=== PATIENT | male | born 1935 | race Caucasian/White ===

== ENCOUNTER 2019-11-29 14:19 | Inpatient (IN) | payer MEDICARE, SELFPAY ==
--- NOTE | ~2019-11-29 | CT_ITS ---
EXAMINATION: CT chest abdomen pelvis wo con DATE: 11/30/2019 17:01 INDICATION: 30 pound weight loss in one month with epigastric pain and prior Whipple procedure. TECHNIQUE: Computed tomography (CT) of the chest, abdomen, and pelvis was performed without intraveno us contrast. Automated exposure control and iterative reconstruction technique were employed. The dos e-length product was 355.20 mGy-cm. COMPARISON: 05/09/2019 FINDINGS: CHEST CT: Mild apical predominant emphysema. Minimal atelectasis in the dependent bilateral lower lobes. Small calcified right upper lobe nodule along with calcified right hilar and mediastinal lymph nodes consis tent with old granulomatous disease. Bubbly mucus in the trachea. No pneumonia. Heart size is normal. No pericardial or pleural effusion. Atherosclerotic coronary artery calcifications. Aortic valve eugenio cification. No pathologically enlarged thoracic lymphadenopathy. ABDOMEN/PELVIS CT: Postoperative change of prior Whipple procedure with expected scattered pneumobilia in the liver. A f ew splenic calcified consistent with old granulomatous disease. Numerous dystrophic calcification is in the tail of pancreas consistent with sequela of chronic pancreatitis. Bilateral adrenal glands are normal. Bilateral renal cysts the largest measuring 2.7 cm in the right kidney. Bilateral nonobstruc ting nephrolithiasis with the largest stone measuring 7-8 mm at the lower pole of the right kidney. B ladder is normal. Appendix is normal. There are few scattered colonic diverticula without adjacent in flammatory change to suggest diverticulitis. Circumferential wall thickening immediately within 3 cm of the gastrojejunal anastomosis and could not exclude malignancy or fixed stricture. Suggestion of a dditional wall thickening in the more distal Nik limb with stranding and mild lymphadenopathy in the associated small bowel mesentery of the left upper quadrant. No free intraperitoneal gas or fluid. N o pathologically enlarged abdominal or pelvic lymphadenopathy. Mild thoracolumbar dextrocurvature. Mi ld scattered degenerative skeletal changes. IMPRESSION: 1. Postoperative change of prior Whipple procedure with irregular wall thickening and surrounding inf lammatory change in the Nik limb immediately distal to the gastrojejunal anastomosis. This could be infectious, inflammatory, ischemic or malignant in etiology. The most concerning lesion is immediatel y distal to the anastomosis and would likely be amenable to endoscopic evaluation. Reviewed, dictated and finalized at location A. NTION MANAGER IMPRESSION: 1. Postoperative change of prior Whipple procedure with irregular wall thickeni ng and surrounding inflammatory change in the Nik limb immediately distal to t he gastrojejunal anastomosis. This could be infectious, inflammatory, ischemic or malignant in etiology. The most concerning lesion is immediately distal to t he anastomosis and would likely be amenable to endoscopic evaluation.
--- NOTE | ~2019-11-29 | XR_ITS ---
EXAMINATION: XR chest 2V DATE: 11/29/2019 17:57 INDICATION: Fatigue and weakness TECHNIQUE: frontal and lateral views of the chest were obtained. COMPARISON: None FINDINGS: The lungs are clear with no focal airspace opacities, pulmonary edema, pleural effusion or pneumothor ax. The cardiomediastinal silhouette is normal. Couple surgical clips project over the mid upper abdo men. IMPRESSION: 1. No acute cardiopulmonary disease. Reviewed, dictated and finalized at location A. SHING RANGE OPERATOR
[2019-11-29 14:45] VITALS: BP 110/61; PULSE 80; RESP 16; TEMP 36.7; O2SAT 100
[2019-11-29 17:12] VITALS: BP 118/77; PULSE 74; RESP 20; O2SAT 99
[2019-11-29 17:13] VITALS: PULSE 75
--- NOTE | 2019-11-29 17:39 | ED.WEAKNESS ---
HPI - Weakness General Chief complaint: Weakness Time Seen by Provider: 11/29/19 17:12 Source: patient, family and RN notes reviewed Mode of arrival: ambulatory Limitations: no limitations History of Present Illness HPI Narrative: A 83 y/o male presents to the ED with worsening generalized weakness for the past 2 weeks. He states that he has been having generalized weakness, fatigue, mild ABD pain, and mild back pain for the past 2 weeks. Per family reports that the pt put himself on a a diet about 4 weeks ago because he thought he was weighing too much and has dropped roughly 20lbs since. The son notes that when he got to the pt's house today that he could barely even get out of his chair, which is very abnormal because the pt normally ambulates on his own. The pt also notes that he has had a cough and runny nose for a month, which he has been taking Dayquil and Nyquil but denies it alleviating his symptoms. The family reports that the pt had a Whipple procedure done in [place] a couple years ago and had part of his pancreas, part of his stomach, part of his small bowel, and his bile duct removed. He denies any N/V/D, fevers, chills, CP, SOB, and any other medical complaints at this time. MD Complaint: generalized weakness Onset (ago): week(s) (2) Duration: progressively worsening Location: generalized Associated symptoms: other (fatigue, mild ABD pain, mild back pain, lost 20lbs in 4 weeks, cough, runny nose) Related Data Home Medications Medication Instructions Recorded Confirmed amlodipine 10 mg PO HS 11/29/19 11/29/19 benazepril 40 mg PO QAM 11/29/19 11/29/19 coQ10 (ubiquinol) 100 mg PO DAILY 11/29/19 11/29/19 fenofibrate 160 mg PO QAM 11/29/19 11/29/19 omega 4-jgp-edd-fish oil [Fish Oil] 1 cap PO QAM 11/29/19 11/29/19 quetiapine 25 mg PO 11/29/19 11/29/19 vitamin B complex 1 tablet PO DAILY 11/29/19 11/29/19 Allergies Allergy/AdvReac Type Severity Reaction Status Date / Time naproxen Allergy Unknown Rash Verified 11/29/19 17:14 Review of Systems Review of Systems: All systems reviewed & are unremarkable except as noted in HPI and below Constitutional: Constitutional: Denies chills, Reports fatigue, Denies fever(s), Denies headache(s), Reports weakness (generalized) and Reports weight loss (20lbs in 4 weeks) Eyes: Eyes: Denies blurry vision ENT: Denies headache(s), Reports nasal discharge and Denies neck pain Cardiovascular: Cardiovascular: Denies chest pain and Denies dyspnea Respiratory: Respiratory: Reports cough and Denies dyspnea Gastrointestinal: Gastrointestinal: Reports abdominal pain (mild), Denies diarrhea, Denies nausea and Denies vomiting Genitourinary: Genitourinary: Denies hematuria and Denies dysuria Musculoskeletal: Musculoskeletal: Reports back pain (mild) and Denies neck pain Neurologic: Denies headache(s) and Denies weakness [facility] Past Medical History Medical History IPMN (intraductal papillary mucinous neoplasm) UTI due to Klebsiella species Surgical History Surgical History History of cholecystectomy History of pancreatectomy History of resection of stomach S/P small bowel resection Family History Family History Mother Patient's mother is Family history of cardiovascular disease Family history of malignant neoplasm Sibling Patient's sister is Patient's brother is Family history of multiple sclerosis Family history of Alzheimer's disease Family history of pancreatic cancer Family history of lung cancer Social History Social History Social History: Patient currently smokes 6-8 cigarettes a day. 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 He would like to be a fu
[2019-11-29 18:09] LABS: Basophils Percent Auto 0.4 % (0.2-1.2); Eosinophils Absolute Auto 0.3 K/mm3 (0-0.3); Eosinophils Percent Auto 3.9 % (0-4.4); Hematocrit 33.1 % (42.0-52.0); Hemoglobin 10.3 g/dL (14.0-18.0); Immature Granulocyte Absolute 0.03 K/mm3 (0.00-0.031); Immature Granulocyte Percent A 0.4 % (0-0.5); Lymphocytes Absolute Auto 1.31 K/mm3 (0.9-3.2); Lymphocytes Percent Auto 15.8 % (18.3-44.2); Mean Corpuscular HGB Conc 31.1 g/dl (32-36); Mean Corpuscular Hemoglobin 29.8 pg (26-34); Mean Corpuscular Volume 95.7 fl (80-100); Monocytes Absolute Auto 0.4 K/mm3 (0.1-0.6); Monocytes Percent Auto 4.2 % (2.6-8.5); Neutrophils Absolute Auto 6.3 K/mm3 (1.3-6.7); Neutrophils Percent Auto 75.3 % (45.5-73.1); Platelet Count Result 345 k/mm3 (150-375); Red Blood Count 3.46 M/mm3 (4.6-6.20); Red Cell Distribution Width 14.4 % (11.5-14.5); White Blood Count 8.3 K/mm3 (4.5-10.0)
[2019-11-29 18:21] LABS: Alanine Aminotransferase 17 U/L (4-50); Albumin Level 3.3 g/dL (3.5-5.1); Alkaline Phosphatase 85 U/L (38-126); Aspartate Amino Transferase 21 U/L (17-59); Bilirubin,Total 0.3 mg/dL (0.2-1.3); Blood Urea Nitrogen 31 mg/dL (9-20); Calcium 8.6 mg/dL (8.4-10.2); Carbon Dioxide 20 mmol/L (22-30); Chloride 114 mmol/L (98-107); Estimated CRCL calculation 18 ml/min; Estimated Glomerular Filt Rate 27; Glucose 111 mg/dL (75-110); Lipase 25 U/L (23-300); Potassium 4.2 mmol/L (3.4-5.0); Sodium 143 mmol/L (137-145)
[2019-11-29] MEDS: SODIUM CHLORIDE 0.9% IV 1,000 ML 999 ML IV CONT (18:37)
[2019-11-29 19:38] VITALS: BP 128/66; PULSE 68; RESP 18; O2SAT 98
[2019-11-29 21:36] VITALS: BP 125/65; PULSE 74; RESP 20; TEMP 36.1; O2SAT 100
--- NOTE | 2019-11-29 21:48 | ADMGEN ---
This patient, Isiah Tobar, was admitted to Medical Room 345-01. Patient/family oriented to hospital policies and general routines including ID bracelet, bed and alarms, visiting hours, pain management, procedures, bathroom and other care routines, personal items, smoking policy, room service/diet, and visiting hours. Valuables list has been completed. Information on how to activate the Rapid Response Team has been discussed. Patient/Family are encouraged to report perceived risks to care and to ask questions if they do not understand what they are told or what they should do.
[2019-11-29] MEDS: LACTATED RINGERS 1,000 ML 125 ML IV CONT (21:52)
[2019-11-29 21:57] VITALS: BMI 19.3
[2019-11-30 00:54] LABS: Add Urine Microscopic? YES; Appearance Urine Cloudy (Clear); Bacteria Urine Trace /hpf; Bilirubin Urine Negative (Negative); Color Urine Yellow (Yellow); Glucose Urine UA Negative (Negative); Ketones Urine Negative (Negative); Leukocyte Esterase Ur 3+ LEU/UL (Negative); Mucus Urine Rare /lpf; Nitrate Urine Negative (Negative); Protein Urine Negative (Negative); RBC Urine 21-50 /hpf (0-2); Specific Grav Ur 1.013 (1.001-1.035); Squamous Epithelial Cell Urine Many /hpf (Few); Urobilinogen Urine Negative mg/dL (<2.0); WBC Urine 31-50 /hpf
[2019-11-30 01:23] LABS: Blood Urine Negative (Negative)
[2019-11-30 05:29] VITALS: BP 138/73; PULSE 68; RESP 20; TEMP 36.4; O2SAT 100
[2019-11-30 06:57] LABS: Blood Urea Nitrogen 26 mg/dL (9-20); Calcium 7.9 mg/dL (8.4-10.2); Carbon Dioxide 17 mmol/L (22-30); Chloride 117 mmol/L (98-107); Estimated CRCL calculation 21 ml/min; Estimated Glomerular Filt Rate 34; Glucose 86 mg/dL (75-110); Potassium 3.6 mmol/L (3.4-5.0); Sodium 144 mmol/L (137-145)
[2019-11-30] MEDS: LACTATED RINGERS 1,000 ML 125 ML IV CONT ×2 (07:07→15:08)
[2019-11-30 08:02] VITALS: PULSE 68; RESP 20; O2SAT 100
[2019-11-30] MEDS: FENOFIBRATE 160 MG TABLET PO (09:38)
[2019-11-30] MEDS: ASPIRIN 81 MG ENTERIC TABLET PO (09:39)
[2019-11-30] MEDS: FERROUS SULFATE 324 MG TABLET PO (09:39)
[2019-11-30 14:00] VITALS: BP 131/69; PULSE 71; RESP 18; TEMP 36.6; O2SAT 100
--- NOTE | 2019-11-30 15:05 | PHAR ---
The patient's home med of [id number] [[id number] UNITS has been verified.
--- NOTE | 2019-11-30 16:04 | PM.IMHP ---
H&P: HPI History of Present Illness Chief complaint: alejandro, uti Narrative: Isiah Tobar is a 83 year old male who presented emergency room due to fatigue and 30 lb weight loss this month. is at bedside states that he she urged the patient to come into emergency room because he has been more fatigued, weak and has had significant weight loss in the last month. She said this started with a URI about a month ago where he had a significant cough and took a while to get over. He has been doing better with that but now has been pretty weak. She says that he started off at 150 lb and now is at 127. The patient states he has been trying to diet by not eating fried food and has lost a good amount of weight. He has had stomach pain on and off that he says is an epigastric cramping pain that is associated with nausea. He does have occasional diarrhea but has had that since his Whipple procedure in 2016. He had this Whipple due to cystic lesions on his pancreas but was never diagnosed with pancreatic cancer. Lately, the patient has had urinary leakage and pain when starting a stream but has not had any dysuria. He has had a catheter in the past after a major surgery but does not require a catheter usually. He does take his tamsulosin which does not seem to help. He has no known history of kidney disease. He does smoke every day about 6 or 8 cigarettes. He said he has some minor back pain that has been chronic and thinks it is due to his belt on his pants. The states he has been more unsteady on his feet but has not fallen. He denies chest pain, shortness of breath, dyspnea on exertion, jaundice, swelling to his legs, or other stroke-like symptoms. Review of Systems Review of Systems: All systems reviewed & are unremarkable except as noted in HPI and below PMFSH Past Medical History Medical History (Updated 11/30/19 @ 16:17 by Daphne Morocho PA-C) IPMN (intraductal papillary mucinous neoplasm) UTI due to Klebsiella species Surgical History Surgical History History of cholecystectomy History of pancreatectomy History of resection of stomach S/P small bowel resection Family History Family History Mother Patient's mother is Family history of cardiovascular disease Family history of malignant neoplasm Sibling Patient's sister is Patient's brother is Family history of multiple sclerosis Family history of Alzheimer's disease Family history of pancreatic cancer Family history of lung cancer Social History Social History (Updated 11/30/19 @ 16:12 by Daphne Morocho PA-C) Social History: Patient currently smokes 6-8 cigarettes a day. 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 Years smoked: 70 Smoking status: Current every day smoker Tobacco type: cigarettes Alcohol intake: former Substance use: never Gender identity (if verbalized by the patient): Male Spiritual care concerns: No Agree to blood products: Yes Meds Home Medications and Allergies Home Medications Medication Instructions Recorded Confirmed Type aspirin 81 mg tablet,delayed 81 mg PO DAILY #30 tablet 09/18/19 11/29/19 Rx release ferrous sulfate 325 mg (65 mg 325 mg PO DAILY #30 tablet 09/18/19 11/29/19 Rx iron) tablet mqybdb-vxemnipb-mliyknr 1 cap PO TID #270 cap 09/18/19 11/29/19 Rx 25,000-79,000-105,000 unit capsule,delayed rel tamsulosin 0.4 mg capsule 0.4 mg PO DAILY #30 cap 09/26/19 11/29/19 Rx amlodipine 10 mg PO HS 11/29/19 11/29/19 History benazepril 40 mg PO QAM 11/29/19 11/29/19 History coQ10 (ubiquinol) 100 mg PO DAILY 11/29/19 11/29/19 History fenofibrate 160 mg PO QAM 11/29/19 11/29/19 History omega 8-vtn-anb-fish oil [Fish Oil] 1 cap PO QAM 11/29/19 0
[2019-11-30] MEDS: AMLODIPINE BESYLATE 5 MG TABLET 10 MG PO (20:25)
[2019-11-30] MEDS: QUEtiapine FUMARATE 25 MG TABLET PO (20:25)
[2019-11-30 21:10] VITALS: BP 122/71; PULSE 66; RESP 16; TEMP 37.2; O2SAT 99
[2019-12-01 06:00] VITALS: BP 122/78; PULSE 72; RESP 16; TEMP 36.8; O2SAT 100
[2019-12-01 06:15] LABS: Basophils Percent Auto 0.7 % (0.2-1.2); Eosinophils Absolute Auto 0.4 K/mm3 (0-0.3); Eosinophils Percent Auto 5.9 % (0-4.4); Hematocrit 26.2 % (42.0-52.0); Hemoglobin 8.2 g/dL (14.0-18.0); Immature Granulocyte Absolute 0.03 K/mm3 (0.00-0.031); Immature Granulocyte Percent A 0.5 % (0-0.5); Lymphocytes Absolute Auto 1.59 K/mm3 (0.9-3.2); Lymphocytes Percent Auto 26.2 % (18.3-44.2); Mean Corpuscular HGB Conc 31.3 g/dl (32-36); Mean Corpuscular Hemoglobin 29.6 pg (26-34); Mean Corpuscular Volume 94.6 fl (80-100); Mean Platelet Volume 10.7 fl (7.4-10.4); Monocytes Absolute Auto 0.3 K/mm3 (0.1-0.6); Monocytes Percent Auto 5.3 % (2.6-8.5); Neutrophils Absolute Auto 3.7 K/mm3 (1.3-6.7); Neutrophils Percent Auto 61.4 % (45.5-73.1); Platelet Count Result 273 k/mm3 (150-375); Red Blood Count 2.77 M/mm3 (4.6-6.20); Red Cell Distribution Width 14.3 % (11.5-14.5); White Blood Count 6.1 K/mm3 (4.5-10.0)
[2019-12-01] MEDS: ASPIRIN 81 MG ENTERIC TABLET PO (08:26)
[2019-12-01] MEDS: FENOFIBRATE 160 MG TABLET PO (08:26)
[2019-12-01] MEDS: FERROUS SULFATE 324 MG TABLET PO (08:26)
[2019-12-01] MEDS: FINASTERIDE 5 MG TABLET PO (08:26)
[2019-12-01] MEDS: PANTOPRAZOLE SODIUM IV 40 MG VIAL IV PUSH (08:27)
[2019-12-01 08:55] LABS: Alanine Aminotransferase 12 U/L (4-50); Albumin Level 2.3 g/dL (3.5-5.1); Alkaline Phosphatase 65 U/L (38-126); Aspartate Amino Transferase 19 U/L (17-59); Bilirubin,Total 0.1 mg/dL (0.2-1.3); Blood Urea Nitrogen 20 mg/dL (9-20); Calcium 7.8 mg/dL (8.4-10.2); Carbon Dioxide 19 mmol/L (22-30); Chloride 114 mmol/L (98-107); Estimated CRCL calculation 22 ml/min; Estimated Glomerular Filt Rate 36; Glucose 79 mg/dL (75-110); Magnesium 1.7 mg/dL (1.6-2.3); Phosphorus 3.3 mg/dL (2.5-4.5); Sodium 145 mmol/L (137-145)
--- NOTE | 2019-12-01 09:38 | WPDGICN ---
Assessment and Plan Additional Plan This is an 83-year-old white male patient mass see because of abnormal CT scan. Patient has a history of dementia. He gives a history of being on a diet over the last 3-4 months and has lost more than 20 lb. He reports becoming progressively weak and fatigued. This prompted him to go to the emergency room yesterday for admission to the hospital. He was found to have a urinary tract infection. Urinary retention and acute kidney injury. Patient's chart reflects a history of Whipple's resection in the past. 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 This could have been an IPMN. Apparently no pancreatic cancer was identified at that time. He also has a history of cholecystectomy. Family history is significant for multiple sclerosis else hemorrhage dementia and pancreatic cancer in a sibling. Medications at home include iron, Creon, tamsulosin, amlodipine, benazepril, fenofibrate. Allergies are reported to Naprosyn. Social history is significant for a distant history of alcohol use Physical exam reveals him to be alert. He has a poor memory. HEENT exam reveals him to be anicteric. Lungs are clear to auscultation and percussion. Heart is without murmur or extra sounds. Abdominal exam bowel sounds are present soft mild tenderness in left upper quadrant is noted. No masses are identified. Digital rectal exam is normal. Laboratory work reveals WBC 6.1, hemoglobin 8.2, hematocrit 26.2. MCV 94. BUN of 20, creatinine 1.8. Albumin 2.3. LFTs are normal. CT scan of the abdomen reveals postoperative change a prior Whipple surgery. There is irregular wall thickening of the small bowel just distal to the gastro-jejunal anastomosis. Endoscopic evaluation is advised. Impression 1.. Abnormal CT scan. 2. Prior Whipple's resection. Apparently had cystic lesion on the pancreas. I am uncertain that whether this was pancreatic pseudocyst or an IPMN. Apparently it was benign disease. 3. Dementia. He gives a very poor history. 4. UTI. With acute kidney injury. Urinary retention is described. 5. Weight loss. Patient states he was on a diet. But lost [id number]. 6. Pancreatic insufficiency. Related to prior Whipple surgery. Agree with pancreatic enzyme replacement such as Creon. 7. Normochromic, normocytic anemia. Nonspecific. No obvious description of GI blood loss but may be related abnormality seen on CT scan. Plan is to evaluate abnormal CT scan with an EGD. Continued pancreatic enzyme replacement encouraged. Will follow with you. GI Consult Note Consult date/time: 12/01/19 09:38 HPI: Isiah Tobar is a 83 year old male [facility] Past Medical History Medical History (Updated 11/30/19 @ 16:17 by Daphne Morocho PA-C) IPMN (intraductal papillary mucinous neoplasm) UTI due to Klebsiella species Surgical History Surgical History History of cholecystectomy History of pancreatectomy History of resection of stomach S/P small bowel resection Family History Family History Mother Patient's mother is Family history of cardiovascular disease Family history of malignant neoplasm Sibling Patient's sister is Patient's brother is Family history of multiple sclerosis Family history of Alzheimer's disease Family history of pancreatic cancer Family history of lung cancer Social History Social History (Updated 11/30/19 @ 16:12 by Daphne Morocho PA-C) Social History: Patient currently smokes 6-8 cigarettes a day. 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 Years smoked: 70 Smoking status: Current every day smoker Tobacco type: cigarettes Alcohol intake: former Substance use: never Gender identity (if verbalized by the patient
[2019-12-01] MEDS: POTASSIUM CHLORIDE 20 MEQ TABLET 40 MEQ PO (10:10)
[2019-12-01 14:00] VITALS: BP 114/72; PULSE 64; RESP 18; TEMP 36.2; O2SAT 100
[2019-12-01 14:28] VITALS: PULSE 64; RESP 18; O2SAT 100
--- NOTE | 2019-12-01 15:07 | PC.NURSE ---
Charge nurse called RE: Pt was swinging at nurse [employer], asked for assistance in room to help redirect patient. Charge nurse entered room and introduced herself. Pt was sitting in a recliner, awake, responded with, what do you want? Pt reminded that aggressive or threatening behavior will not be tolerated. When asked, Do you know where you are? responded, Yes, I already answered all these questions to the last person just a little while ago. Asked again, Can you tell me where you are? Why do I need to answer all these questions again? [facility]ked [facility] to [facility] Pt was using a very loud tone and was aggitated that nurse was speaking with him. Pt was asked if had tried to swing his hands at the tech earlier, he denied having done so. Pt was notified that no aggressive behavior would be tolerated from anyone toward staff. Pt again denied any such behavior. Pt again notified that swinging at staff and threatening statements will not be tolerated. Pt stated that he did not do anything like that, so, yes, he understood.
--- NOTE | 2019-12-01 17:43 | PM.IMPN ---
Progress Note: A&P Assessment and Plan (1) COURTNEY (acute kidney injury): Code(s): N17.9 - Acute kidney failure, unspecified Status: Acute Assessment and Plan: -----Urine cx negative so abx stopped. Could be CKD with dehydration since pt had not been eating and drinking well and was more weak and dehydrated. CT did not show any abnormalities of the bladder. He received IV fluids since admission but had coarse crackles in his lung so this was stopped. Will reassess tomorrow. (2) UTI (urinary tract infection): Code(s): N39.0 - Urinary tract infection, site not specified Status: Acute Assessment and Plan: -----cx neg. abx stopped. (3) Urinary retention: Code(s): R33.9 - Retention of urine, unspecified Status: Acute Assessment and Plan: -----finasteride added (4) Benign essential HTN: Code(s): I10 - Essential (primary) hypertension Status: Acute Assessment and Plan: -----last blood pressure 114/72. Will continue home medications of amlodipine but will hold the benazepril due to COURTNEY. (5) Pancreatic insufficiency: Code(s): K86.89 - Other specified diseases of pancreas Status: Acute Assessment and Plan: -----continue Creon supplementation. (6) Dementia: Code(s): F03.90 - Unspecified dementia without behavioral disturbance Status: Acute Assessment and Plan: -----alert and oriented x4 but has a history of dementia. Continue Seroquel. (7) Systolic murmur: Code(s): R01.1 - Cardiac murmur, unspecified Status: Acute Assessment and Plan: -----patient family do not recall him ever being told he has a murmur. He has not had any passing out or lightheadedness. I recommend he follow-up with his primary care physician for routine monitoring of this. (8) Weight loss: Code(s): R63.4 - Abnormal weight loss Status: Acute Assessment and Plan: -----patient has been trying to lose weight but lost 30 lb in 1 month which seems excessive. CT shows abnormalities that could be infection, cancer, or ischemic. I have started a PPI and he is getting an EGD tomorrow. Additional Plan . Time Spent With Patient Time with patient: 25 - 35 minutes Subjective Date/time seen: 12/01/19 17:43 Interval history: Pt is a 83-year-old male here for weight loss and epigastric pain. Patient states he is doing better today. He has occasional epigastric pain but overall is feeling like he has improved. He denies nausea, vomiting, fevers, chills, chest pain, shortness of breath, or leg swelling. Review of Systems Review of Systems: All systems reviewed & are unremarkable except as noted in HPI and below Exam Narrative: Exam Narrative: General:Well developed well nourished patient resting comfortably in bed in no acute distress HEENT: Normocephalic, atraumatic, PERRL, Sclerae anicteric, oral mucosa moist. Neck: Supple Resp: More clear to auscultation today without crackles Heart: RRR a loud 3/6 systolic murmur best heard at the right 2nd intercostal space Abd: Soft, nontender. No pain to palpation. Positive bowel sounds Skin: Warm and dry Extremities: No swelling, erythema or pain to palpation Neuro: Alert and Oriented x4 . CN 2-12 intact. No focal neurological deficits. Objective Data Vital Signs Vital Signs: Vital Signs - 24 hr 11/30/19 21:10 12/01/19 06:00 12/01/19 14:00 Temperature 98.9 F 98.2 F 97.2 F L Pulse Rate 66 72 64 Respiratory Rate 16 16 18 Blood Pressure 122/71 122/78 114/72 Pulse Oximetry 99 100 100 12/01/19 14:28 Temperature Pulse Rate 64 Respiratory Rate 18 Blood Pressure Pulse Oximetry 100 Intake/Output Intake/Output: Intake & Output 11/28/19 11/29/19 11/30/19 12/01/19 23:59 23:59 23:59 23:59 Intake Total 50 3597 1130 Output Total 400 3 Balance 50 4747 1127 Meds/Results Medications: Active Medications Gener
[2019-12-01] MEDS: AMLODIPINE BESYLATE 5 MG TABLET 10 MG PO (20:45)
[2019-12-01] MEDS: QUEtiapine FUMARATE 25 MG TABLET PO (20:45)
[2019-12-01 22:00] VITALS: BP 139/80; PULSE 70; RESP 16; TEMP 36.2; O2SAT 100
[2019-12-02] VITALS (9 sets, daily range): BP systolic 94–144; BP diastolic 58–95; PULSE 58–81; RESP 14–18; TEMP 36.1–36.7; O2SAT 98–100; BMI 19.3
--- NOTE | 2019-12-02 07:41 | PC.NURSE ---
Sarai, in GI lab, confirm that IV protonix is okay to be administered. Other medications will have to wait until after the procedure.
[2019-12-02] MEDS: PANTOPRAZOLE SODIUM IV 40 MG VIAL IV PUSH (08:12)
[2019-12-02 08:18] LABS: Blood Urea Nitrogen 17 mg/dL (9-20); Calcium 7.9 mg/dL (8.4-10.2); Carbon Dioxide 20 mmol/L (22-30); Chloride 114 mmol/L (98-107); Estimated CRCL calculation 22 ml/min; Estimated Glomerular Filt Rate 36; Glucose 90 mg/dL (75-110); Potassium 3.4 mmol/L (3.4-5.0); Sodium 145 mmol/L (137-145)
[2019-12-02] MEDS: LACTATED RINGERS 1,000 ML 150 ML IV CONT (11:18)
--- NOTE | 2019-12-02 11:19 | WPDANESEPPF ---
Anes - Initial Pre Proc Eval Procedure: Operation Date: 12/02/19 11:30 Proposed Procedures p Esophagogastroduodenoscopy - Adalberto Abel MD Date/Time: 12/02/19 11:19 Surgeon: Daphne Morocho PA-C Pre Op Diagnosis: alejandro, uti Patient Data Age: 83 Gender: M Height: 5 ft 6 in Weight: 54.5 kg Last Vital Signs Temp 36.2 C L 12/02/19 06:00 Pulse 63 12/02/19 11:14 Resp 18 12/02/19 11:14 BP 129/69 12/02/19 11:14 Pulse Ox 100 12/02/19 11:14 Allergies Allergy/AdvReac Type Severity Reaction Status Date / Time naproxen Allergy Unknown Rash Verified 11/29/19 17:14 Home Medications Medication Instructions Recorded Confirmed Type aspirin 81 mg tablet,delayed 81 mg PO DAILY #30 tablet 09/18/19 11/29/19 Rx release ferrous sulfate 325 mg (65 mg 325 mg PO DAILY #30 tablet 09/18/19 11/29/19 Rx iron) tablet wofunb-pyaotaae-yixfevl 1 cap PO TID #270 cap 09/18/19 11/29/19 Rx 25,000-79,000-105,000 unit capsule,delayed rel tamsulosin 0.4 mg capsule 0.4 mg PO DAILY #30 cap 09/26/19 11/29/19 Rx amlodipine 10 mg PO HS 11/29/19 11/29/19 History benazepril 40 mg PO QAM 11/29/19 11/29/19 History coQ10 (ubiquinol) 100 mg PO DAILY 11/29/19 11/29/19 History fenofibrate 160 mg PO QAM 11/29/19 11/29/19 History omega 8-qeu-gea-fish oil [Fish Oil] 1 cap PO QAM 11/29/19 11/29/19 History quetiapine 25 mg PO HS 11/29/19 11/29/19 History vitamin B complex 1 tablet PO DAILY 11/29/19 11/29/19 History Laboratory Tests 12/02/19 07:42 Sodium 145 mmol/L mmol/L (137-145) Potassium 3.4 mmol/L mmol/L (3.4-5.0) Chloride 114 mmol/L H mmol/L (98-107) Carbon Dioxide 20 mmol/L L mmol/L (22-30) BUN 17 mg/dL mg/dL (9-20) Creatinine 1.80 mg/dL H mg/dL (0.7-1.3) Estim Creat Clear Calc 22 ml/min ml/min Estimated GFR 36 L (59 - ) Glucose 90 mg/dL mg/dL (75-110) Calcium 7.9 mg/dL L mg/dL (8.4-10.2) Patient hx anesthesia problems: none Family hx anesthesia problems: none [facility] Past Medical History Medical History IPMN (intraductal papillary mucinous neoplasm) UTI due to Klebsiella species Surgical History Surgical History History of cholecystectomy History of pancreatectomy History of resection of stomach S/P small bowel resection Family History Family History Mother Patient's mother is Family history of cardiovascular disease Family history of malignant neoplasm Sibling Patient's sister is Patient's brother is Family history of multiple sclerosis Family history of Alzheimer's disease Family history of pancreatic cancer Family history of lung cancer Social History Social History Social History: Patient currently smokes 6-8 cigarettes a day. 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 Years smoked: 70 Smoking status: Current every day smoker Tobacco type: cigarettes Alcohol intake: former Substance use: never Gender identity (if verbalized by the patient): Male Spiritual care concerns: No Agree to blood products: Yes Anes - Eval Final PreProcedure Day of Procedure 12/02/19 11:19 Patient weight: thin Heart: regular rate and rhythm Lungs: clear to auscultation Airway: Mallampati scale class II Neurological: alert and oriented Last oral intake: >/= 8 hours ASA classification: III Emergent: no Anesthetic plan: proceed Anesthesia type and monitoring: general and standard monitoring Informed Consent: The patient's anesthetic plan and its attendant risks and benefits were discussed with the patient/family/POA. Questions were solicited and answers provided to the satisfactio
[2019-12-02] MEDS: BENZOCAINE (*SP) 60 ML SPRAY CAN (HURRICAINE) 1 SPRAY MUCOUS MEM (12:09)
[2019-12-02] MEDS: SIMETHICONE ORAL SUSPENSION 20 MG/0.3 ML 30 ML BOTTLE 0.6 ML PO (12:14)
--- NOTE | 2019-12-02 13:36 | PC.NURSE ---
Pt not wanting to take medications until he eats.
--- NOTE | 2019-12-02 14:35 | PCNSR ---
On 12/02/19, the student, Fadia Ramos, provided care and completed [facility] documentation on this patient. I have reviewed the student's documentation and agree with the findings.
[2019-12-02] MEDS: FINASTERIDE 5 MG TABLET PO (15:30)
[2019-12-02] MEDS: FERROUS SULFATE 324 MG TABLET PO (15:30)
[2019-12-02] MEDS: FENOFIBRATE 160 MG TABLET PO (15:30)
--- NOTE | 2019-12-02 15:33 | PCOTNOTE ---
Made second attempt to see patient this date for OT, patient complained of pain in buttocks and asked to be repositioned. Patient assisted with repositioning but declined to participate in any functional/skilled ADL or transfer. Patient assisted with bed mobility to scoot up and RN made aware of patient's condition. Patient not seen for OT this date.
--- NOTE | 2019-12-02 15:45 | PM.IMPN ---
Progress Note: A&P Assessment and Plan (1) Jejunal ulcer: Code(s): K28.9 - Gastrojejunal ulcer, unspecified as acute or chronic, without hemorrhage or perforation Status: Acute Assessment and Plan: -----seen on EGD. Continue protonix BID and advance diet as tolerated. Spoke with Dr. Abel who recommends waiting for the bx to come back as it may be cancer. Will monitor pts symptoms. (2) COURTNEY (acute kidney injury): Code(s): N17.9 - Acute kidney failure, unspecified Status: Acute Assessment and Plan: -----Urine cx negative so abx stopped. Could be CKD with dehydration since pt had not been eating and drinking well and was more weak and dehydrated. CT did not show any abnormalities of the bladder. He received IV fluids since admission but had coarse crackles in his lung so this was stopped. Cr stable 1.8. back in 2019 he was 1.6 so he is about the same. Co2 is increasing. If not normal tomorrow may consider adding sodium bicarb because of the renal failure. (3) UTI (urinary tract infection): Code(s): N39.0 - Urinary tract infection, site not specified Status: Acute Assessment and Plan: -----cx neg. abx stopped. (4) Urinary retention: Code(s): R33.9 - Retention of urine, unspecified Status: Acute Assessment and Plan: -----finasteride added (5) Benign essential HTN: Code(s): I10 - Essential (primary) hypertension Status: Acute Assessment and Plan: -----last blood pressure 131/59. Will continue home medications of amlodipine but will hold the benazepril due to COURTNEY. (6) Pancreatic insufficiency: Code(s): K86.89 - Other specified diseases of pancreas Status: Acute Assessment and Plan: -----continue Creon supplementation. pt has a hx of IPMN. (7) Dementia: Code(s): F03.90 - Unspecified dementia without behavioral disturbance Status: Acute Assessment and Plan: -----alert and oriented x4 but has a history of dementia. Continue Seroquel. (8) Systolic murmur: Code(s): R01.1 - Cardiac murmur, unspecified Status: Acute Assessment and Plan: -----patient family do not recall him ever being told he has a murmur. He has not had any passing out or lightheadedness. I recommend he follow-up with his primary care physician for routine monitoring of this. (9) Weight loss: Code(s): R63.4 - Abnormal weight loss Status: Acute Assessment and Plan: -----patient has been trying to lose weight but lost 30 lb in 1 month which seems excessive. CT shows abnormalities that could be infection, cancer, or ischemic. awaiting bx Additional Plan . Subjective Date/time seen: 12/02/19 15:45 Interval history: Pt is a 83-year-old male here for weight loss and epigastric pain. Patient states his pain comes and goes. he has not eaten anything since last night because of his scope today. He denies nausea, vomiting, fevers, chills, chest pain, shortness of breath, or leg swelling. Exam Narrative: Exam Narrative: General:Well developed well nourished patient resting comfortably in bed in no acute distress HEENT: Normocephalic, atraumatic, PERRL, Sclerae anicteric, oral mucosa moist. Neck: Supple Resp: CTA Heart: RRR a loud 3/6 systolic murmur best heard at the right 2nd intercostal space Abd: Soft, nontender. No pain to palpation. Positive bowel sounds Skin: Warm and dry Extremities: No swelling, erythema or pain to palpation Neuro: Alert and Oriented x4 . CN 2-12 intact. No focal neurological deficits. Objective Data Vital Signs Vital Signs: Vital Signs - 24 hr 12/01/19 22:00 12/02/19 06:00 12/02/19 11:14 Temperature 97.2 F L 97.1 F L Pulse Rate 70 65 63 Respiratory Rate 16 16 18 Blood Pressure 139/80 128/60 129/69 Pulse Oximetry 100 100 100 12/02/19 12:25 12/02/19 12:35 12/02/19 12:45 Temperature Pulse Rate 70 66 60 Res
[2019-12-02] MEDS: POTASSIUM CHLORIDE 20 MEQ TABLET PO (17:09)
[2019-12-02] MEDS: AMLODIPINE BESYLATE 5 MG TABLET 10 MG PO (20:58)
[2019-12-02] MEDS: PANTOPRAZOLE 40 MG TABLET PO (20:58)
[2019-12-02] MEDS: QUEtiapine FUMARATE 25 MG TABLET PO (20:59)
[2019-12-03 06:00] VITALS: BP 114/48; PULSE 67; RESP 18; TEMP 36.2; O2SAT 99
[2019-12-03 06:09] LABS: Hematocrit 28.6 % (42.0-52.0)
[2019-12-03 06:18] LABS: Blood Urea Nitrogen 16 mg/dL (9-20); Calcium 8.1 mg/dL (8.4-10.2); Carbon Dioxide 21 mmol/L (22-30); Chloride 112 mmol/L (98-107); Estimated CRCL calculation 23 ml/min; Estimated Glomerular Filt Rate 39; Glucose 94 mg/dL (75-110); Potassium 3.4 mmol/L (3.4-5.0); Sodium 143 mmol/L (137-145)
--- NOTE | 2019-12-03 09:50 | WPDANESPN ---
Anes - Prog Note Post-Op Date/Time: 12/03/19 09:50 Cardiovascular status: normal Respiratory status: normal Airway patency: baseline Mental status: baseline Post-Op hydration status: normal Vital Signs: Last Vital Signs Temp 36.2 C L 12/03/19 06:00 Pulse 67 12/03/19 06:00 Resp 18 12/03/19 06:00 BP 114/48 L 12/03/19 06:00 Pulse Ox 99 12/03/19 06:00 I/O: Intake & Output 12/02/19 12/03/19 12/03/19 23:59 07:59 15:59 Intake Total 540 150 480 Balance 540 150 480 Laboratory Tests 12/03/19 05:30 12/03/19 05:30 12/03/19 12/03/19 05:30 05:30 Hgb 9.0 L Hct 28.6 L Sodium 143 Potassium 3.4 Chloride 112 H Carbon Dioxide 21 L BUN 16 Creatinine 1.70 H Estim Creat Clear Calc 23 Estimated GFR 39 L Glucose 94 Calcium 8.1 L Post-procedural complaints: none Patient Feedback: Patient satisfied with anesthetic care.
--- NOTE | 2019-12-03 11:02 | WPDGIPROGNO ---
Progress Note: A&P Additional Plan Patient alert. Comfortable at rest. Tolerating liquid diet without difficulty. On physical exam abdomen is benign. Bowel sounds are present. Nontender. No organomegaly evident. Impression 1. Multiple duodenal ulcers. Located a prior surgical anastomosis. Some concern over underlying tumor. 2. Status post Whipple's resection. Patient has a history of pancreatic IPMN. Patient remains at risk of recurrent cancer. Histology for duodenal ulcer biopsies pending. 3. Weight loss. Patient reports being on a diet. But concern over this being related ulcer disease and possible recurrent tumor. Plan is to advance diet. Continue proton pump inhibitor. Continues Carafate. Await histology. Further workup pending results of histology. Subjective Date/time seen: 12/03/19 11:02 Objective Data Vital Signs Vital Signs: Vital Signs - 24 hr 12/02/19 11:14 12/02/19 12:25 12/02/19 12:35 Temperature Pulse Rate 63 70 66 Respiratory Rate 18 16 16 Blood Pressure 129/69 94/58 L 112/69 Pulse Oximetry 100 100 98 12/02/19 12:45 12/02/19 12:55 12/02/19 13:35 Temperature 36.1 C L Pulse Rate 60 81 58 L Respiratory Rate 15 16 14 Blood Pressure 132/77 118/95 H 144/64 H Pulse Oximetry 100 100 100 12/02/19 14:00 12/02/19 20:55 12/03/19 06:00 Temperature 36.7 C 36.7 C 36.2 C L Pulse Rate 58 L 62 67 Respiratory Rate 18 18 18 Blood Pressure 131/59 L 122/62 114/48 L Pulse Oximetry 98 99 99 Intake/Output Intake/Output: Intake & Output 11/30/19 12/01/19 12/02/19 12/03/19 23:59 23:59 23:59 23:59 Intake Total 3597 1370 1020 630 Output Total 400 3 125 Balance 3197 1367 895 630 Meds/Results Medications: Active Medications Generic Name Dose Route Start Last Admin Trade Name Freq PRN Reason Stop Dose Admin Amlodipine Besylate 10 mg 11/30/19 21:00 12/02/19 20:58 Norvasc PO 10 mg HS ESTHELA Administration Fenofibrate 160 mg 11/30/19 09:00 12/02/19 15:30 Fenofibrate PO 160 mg QAM ESTHELA Administration Ferrous Sulfate 324 mg 11/30/19 08:00 12/02/19 15:30 Ferrous Sulfate PO 324 mg DAILY@0800 ESTHELA Administration Finasteride 5 mg 12/01/19 09:00 12/02/19 15:30 Proscar PO 5 mg QAM ESTHELA Administration Lorazepam 0.5 mg 12/02/19 15:50 Ativan Inj IV PUSH Q6H PRN Anxiety Nicotine 1 patch 12/01/19 17:44 Nicoderm Cq 14 Mg TRANSDERM QAM PRN smoking cravings Pantoprazole Sodium 40 mg 12/02/19 21:00 12/02/19 20:58 Protonix PO 40 mg Q12HR ESTHELA Administration Quetiapine Fumarate 25 mg 11/30/19 21:00 12/02/19 20:59 Seroquel PO 25 mg HS ESTHELA Administration Simethicone 0.6 ml 12/02/19 12:14 12/02/19 12:14 Mylicon Infants Drops PO 0.6 ml ONCE PRN Administration Gas Discomfort Radiology Results: ITS Impressions Chest X-Ray 11/29/19 18:34 IMPRESSION: 1. No acute cardiopulmonary disease. Chest/Abdomen/Pelvis CT 11/30/19 19:03 IMPRESSION: 1. Postoperative change of prior Whipple procedure with irregular wall thickening and surrounding inflammatory change in the Nik limb immediately distal to the gastrojejunal anastomosis. This could be infectious, inflammatory, ischemic or malignant in etiology. The most concerning lesion is immediately distal to the anastomosis and would likely be amenable to endoscopic evaluation. Labs Labs: Laboratory Results - last 24 hr 12/03/19 12/03/19 05:30 05:30 Hgb 9.0 L Hct 28.6 L Sodium 143 Potassium 3.4 Chloride 112 H Carbon Dioxide 21 L BUN 16 Creatinine 1.70 H Estim Creat Clear Calc 23 Estimated GFR 39 L Glucose 94 Calcium 8.1 L
[2019-12-03] MEDS: PANTOPRAZOLE 40 MG TABLET PO ×2 (11:04→20:25)
[2019-12-03] MEDS: FENOFIBRATE 160 MG TABLET PO (11:04)
[2019-12-03] MEDS: FERROUS SULFATE 324 MG TABLET PO (11:04)
[2019-12-03] MEDS: FINASTERIDE 5 MG TABLET PO (11:04)
[2019-12-03 14:00] VITALS: BP 121/60; PULSE 69; RESP 20; TEMP 36.6; O2SAT 99
--- NOTE | 2019-12-03 16:22 | PM.IMPN ---
Progress Note: A&P Assessment and Plan (1) Jejunal ulcer: Code(s): K28.9 - Gastrojejunal ulcer, unspecified as acute or chronic, without hemorrhage or perforation Status: Acute Assessment and Plan: EGD on 12/[address] Abel revealed multiple cratered ulcers in the jejunum. History of whipple in the past for IPMN. Dr Abel recommends awaiting pathology report from EGD biopsies given the likelihood of malignancy. Continue PPI and carafate. Appreciate Dr Abel's recommendations. (2) Acute on chronic renal failure: Qualifiers: Acute renal failure type: unspecified Chronic kidney disease stage: stage 3 (moderate) Qualified Code(s): N17.9 - Acute kidney failure, unspecified; N18.3 - Chronic kidney disease, stage 3 (moderate) Code(s): N17.9 - Acute kidney failure, unspecified; N18.9 - Chronic kidney disease, unspecified Status: Acute Assessment and Plan: Cr improved with IV hydration which was stopped due to pulmonary rales. Stable, monitor Cr. May have been secondary to dehydration. Cr now appears near baseline. (3) UTI (urinary tract infection): Code(s): N39.0 - Urinary tract infection, site not specified Status: Ruled-out Assessment and Plan: Ruled out, urine culture negative and antibiotics were stopped. (4) Urinary retention: Code(s): R33.9 - Retention of urine, unspecified Status: Acute Assessment and Plan: Finasteride added. (5) Benign essential HTN: Code(s): I10 - Essential (primary) hypertension Status: Acute Assessment and Plan: TESS held secondary to renal function. Continue home norvasc. BP stable today, last 121/60. (6) Pancreatic insufficiency: Code(s): K86.89 - Other specified diseases of pancreas Status: Acute Assessment and Plan: h/o IPMN; continue home creon supplementation. (7) Dementia: Qualifiers: Dementia behavioral disturbance: without behavioral disturbance Dementia type: unspecified type Qualified Code(s): F03.90 - Unspecified dementia without behavioral disturbance Code(s): F03.90 - Unspecified dementia without behavioral disturbance Status: Acute Assessment and Plan: Stable. Calm and cooperative for me today. Continue home seroquel. (8) Systolic murmur: Code(s): R01.1 - Cardiac murmur, unspecified Status: Acute Assessment and Plan: Asymptomatic. Follow up with PCP. (9) Weight loss: Code(s): R63.4 - Abnormal weight loss Status: Acute Assessment and Plan: Patient reported he was attempting to lose weight on a diet but reportedly has lost around 30lb in about [address] abdomen with abnormal GI wall thickening and EGD results noted above. Risk for CA. Awaiting biopsy results. (10) DVT prophylaxis: Code(s): Z29.9 - Encounter for prophylactic measures, unspecified Status: Acute Assessment and Plan: SCDs Additional Plan . Subjective Date/time seen: 12/03/19 1545 Interval history: Mr. Tobar is an 83yo M admitted for duodenal ulcers. His at the bedside notes he has had weakness and weight loss over the last several weeks. At time of exam today, he denies any abdominal pain, nausea or vomiting and has tolerated some oral intake. He denies chest pain, shortness of breath, or calf tenderness. Review of Systems Review of Systems: Narrative: Twelve systems were reviewed with pertinent positives and negatives as per HPI. Exam Narrative: Exam Narrative: General: Thin elderly male resting supine in bed in no acute distress. HEENT: Normocephalic, EOMI, oral mucosa moist. Cardiovascular: Rate and rhythm are regular. R
[2019-12-03 19:50] VITALS: BP 123/70; PULSE 77; RESP 16; TEMP 36.1; O2SAT 100
[2019-12-03] MEDS: QUEtiapine FUMARATE 25 MG TABLET PO (20:25)
[2019-12-03] MEDS: AMLODIPINE BESYLATE 5 MG TABLET 10 MG PO (20:25)
[2019-12-04 06:00] VITALS: BP 118/64; PULSE 77; RESP 16; TEMP 36.6; O2SAT 100
[2019-12-04 06:06] LABS: Hematocrit 25.9 % (42.0-52.0); Hemoglobin 8.5 g/dL (14.0-18.0); Mean Corpuscular HGB Conc 32.8 g/dl (32-36); Mean Corpuscular Hemoglobin 30.4 pg (26-34); Mean Corpuscular Volume 92.5 fl (80-100); Mean Platelet Volume 10.7 fl (7.4-10.4); Platelet Count Result 285 k/mm3 (150-375); Red Cell Distribution Width 14.2 % (11.5-14.5)
[2019-12-04 06:12] LABS: Blood Urea Nitrogen 18 mg/dL (9-20); Calcium 7.8 mg/dL (8.4-10.2); Carbon Dioxide 24 mmol/L (22-30); Chloride 114 mmol/L (98-107); Estimated CRCL calculation 22 ml/min; Estimated Glomerular Filt Rate 36; Glucose 103 mg/dL (75-110); Magnesium 1.8 mg/dL (1.6-2.3); Phosphorus 3.1 mg/dL (2.5-4.5); Potassium 3.4 mmol/L (3.4-5.0); Sodium 144 mmol/L (137-145)
[2019-12-04] MEDS: FERROUS SULFATE 324 MG TABLET PO (08:51)
[2019-12-04] MEDS: PANTOPRAZOLE 40 MG TABLET PO (08:51)
[2019-12-04] MEDS: FENOFIBRATE 160 MG TABLET PO (08:51)
[2019-12-04] MEDS: FINASTERIDE 5 MG TABLET PO (08:51)
[2019-12-04] MEDS: POTASSIUM CHLORIDE 20 MEQ TABLET PO (08:52)
[2019-12-04 08:53] VITALS: PULSE 72; RESP 16; O2SAT 100
[2019-12-04] MEDS: MAGNESIUM OXIDE 400 MG TABLET PO (09:15)
--- NOTE | 2019-12-04 10:09 | WPDGIPROGNO ---
Progress Note: A&P Additional Plan Patient alert and comfortable. Tolerating diet. He denies abdominal pain. No signs of additional GI blood loss. Physical exam vital signs stable. Alert and anicteric. Lungs are clear. Heart without murmur. Abdomen is soft and nontender. Hemoglobin 8.5, hematocrit 25.9 stable. Biopsy of duodenal ulcers reveals benign histology. Impression 1. Resolved upper GI bleeding. 2. Multiple duodenal ulcers. Benign histology. There is concern because this is area of previous IPMN resection. 3. History of Whipple's surgical resection. 4. History of IPMN. Plan is to continue high-dose proton pump inhibitor. Follow-up EGD in 1-2 months to document healing of these lesions. Additional biopsies if they remain present. Consider discharge when stable from primary care service perspective. Subjective Date/time seen: 12/04/19 10:09 Objective Data Vital Signs Vital Signs: Vital Signs - 24 hr 12/03/19 14:00 12/03/19 19:50 12/04/19 06:00 Temperature 36.6 C 36.1 C L 36.6 C Pulse Rate 69 77 77 Respiratory Rate 20 16 16 Blood Pressure 121/60 123/70 118/64 Pulse Oximetry 99 100 100 Intake/Output Intake/Output: Intake & Output 12/01/19 12/02/19 12/03/19 12/04/19 23:59 23:59 23:59 23:59 Intake Total 1370 1020 870 720 Output Total 3 125 Balance 1367 895 870 720 Meds/Results Medications: Active Medications Generic Name Dose Route Start Last Admin Trade Name Freq PRN Reason Stop Dose Admin Amlodipine Besylate 10 mg 11/30/19 21:00 12/03/19 20:25 Norvasc PO 10 mg HS ESTHELA Administration Fenofibrate 160 mg 11/30/19 09:00 12/04/19 08:51 Fenofibrate PO 160 mg QAM ESHTELA Administration Ferrous Sulfate 324 mg 11/30/19 08:00 12/04/19 08:51 Ferrous Sulfate PO 324 mg DAILY@0800 ESTHELA Administration Finasteride 5 mg 12/01/19 09:00 12/04/19 08:51 Proscar PO 5 mg QAM ESTHELA Administration Lorazepam 0.5 mg 12/02/19 15:50 Ativan Inj IV PUSH Q6H PRN Anxiety Nicotine 1 patch 12/01/19 17:44 Nicoderm Cq 14 Mg TRANSDERM QAM PRN smoking cravings Pantoprazole Sodium 40 mg 12/02/19 21:00 12/04/19 08:51 Protonix PO 40 mg Q12HR ESTHELA Administration Quetiapine Fumarate 25 mg 11/30/19 21:00 12/03/19 20:25 Seroquel PO 25 mg HS ESTHELA Administration Simethicone 0.6 ml 12/02/19 12:14 12/02/19 12:14 Mylicon Infants Drops PO 0.6 ml ONCE PRN Administration Gas Discomfort Radiology Results: ITS Impressions Chest X-Ray 11/29/19 18:34 IMPRESSION: 1. No acute cardiopulmonary disease. Chest/Abdomen/Pelvis CT 11/30/19 19:03 IMPRESSION: 1. Postoperative change of prior Whipple procedure with irregular wall thickening and surrounding inflammatory change in the Nik limb immediately distal to the gastrojejunal anastomosis. This could be infectious, inflammatory, ischemic or malignant in etiology. The most concerning lesion is immediately distal to the anastomosis and would likely be amenable to endoscopic evaluation. Labs Labs: Laboratory Results - last 24 hr 12/04/19 12/04/19 05:37 05:37 WBC 6.0 RBC 2.80 L Hgb 8.5 L Hct 25.9 L MCV 92.5 MCH 30.4 MCHC 32.8 RDW 14.2 Plt Count 285 MPV 10.7 H Sodium 144 Potassium 3.4 Chloride 114 H Carbon Dioxide 24 BUN 18 Creatinine 1.80 H Estim Creat Clear Calc 22 Estimated GFR 36 L Glucose 103 Calcium 7.8 L Phosphorus 3.1 Magnesium 1.8
[2019-12-04 14:00] VITALS: BP 111/45; PULSE 60; RESP 18; TEMP 36; O2SAT 100
--- NOTE | 2019-12-04 20:01 | PM.DS ---
DS: Diagnosis Admitting Diagnosis Admitting Diagnosis: Acute kidney failure, unspecified Discharge Diagnosis (1) Jejunal ulcer: Code(s): K28.9 - Gastrojejunal ulcer, unspecified as acute or chronic, without hemorrhage or perforation Status: Acute Assessment and Plan: Date of Service 12/04/19 Mr. 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 The patient reported he was intentionally attempting weight loss by eating less fried foods. He noted to have intermittent cramping abdominal pain with associated nausea. He noted to have occasional diarrhea which was not abnormal for him following his Whipple in 2016. CT abdomen showed irregular wall thickening and surrounding inflammatory change in the Nik limb immediately distal to the gastrojejunal anastomosis. Gastroenterology was consulted and he underwent EGD by Dr. Abel on 12/02 which revealed multiple crated ulcers in the jejunum. Multiple biopsies were obtained given his risk for malignancy and ultimately were consistent with benign ulcer. He was started on protein pump inhibitor and Carafate. Cr was elevated above his baseline which improved with IV hydration. Hgb and hematocrit were low but stable, recommend rechecking in 1 week after discharge with results to primary care. Urinalysis was abnormal and he was started on IV antibiotics for presumed UTI, but urine culture ultimately came back negative and antibiotics were stopped. He does continue to smoke several cigarettes per day and he was educated on smoking cessation, discharged with nicotine patches. He was feeling well after his GI evaluation and was hemodynamically stable for discharge 12/04/19 with instructions to follow-up with PCP in 1 week, Dr. Abel in 2 months for repeat EGD. Discharged with PPI and Carafate. EGD on 12/[address] Abel revealed multiple cratered ulcers in the jejunum. History of whipple in the past for IPMN. Pathology reports suggest no evidence of malignancy. Continue PPI and carafate. Follow-up with Dr. Abel in 2 months for repeat EGD. (2) Acute on chronic renal failure: Qualifiers: Acute renal failure type: unspecified Chronic kidney disease stage: stage 3 (moderate) Qualified Code(s): N17.9 - Acute kidney failure, unspecified; N18.3 - Chronic kidney disease, stage 3 (moderate) Code(s): N17.9 - Acute kidney failure, unspecified; N18.9 - Chronic kidney disease, unspecified Status: Acute Assessment and Plan: Cr improved with IV hydration which was stopped due to pulmonary rales. May have been secondary to dehydration. Cr now appears near baseline. (3) UTI (urinary tract infection): Code(s): N39.0 - Urinary tract infection, site not specified Status: Ruled-out Assessment and Plan: Ruled out, urine culture negative and antibiotics were stopped. (4) Urinary retention: Code(s): R33.9 - Retention of urine, unspecified Status: Chronic Assessment and Plan: Continue home tamsulosin. (5) Benign essential HTN: Code(s): I10 - Essential (primary) hypertension Status: Chronic Assessment and Plan: BP stable on his home Norvasc. Hans inhibitor was held secondary to renal function. His renal function returned to baseline and his HANS-inhibitor was resumed at discharge. (6) Pancreatic insufficiency: Code(s): K86.89 - Other specified diseases of pancreas Status: Chronic Assessment and Plan: h/o IPMN; continue home creon supplementation. (7) Dementia: Qualifiers: Dementia type: unspecified type Dementia behavioral disturbance: witho
--- NOTE | 2020-02-11 14:06 | CONS_ITS ---
DATE OF CONSULTATION: 02/11/2020 REASON FOR CONSULTATION: Abscess, left upper quadrant. HISTORY OF PRESENT ILLNESS: Mr. Tobar is an 84-year-old male with dementia. He cannot provide any comprehensive history. He was transported from [facility] on January 30 with 1-day of abdominal pain in the upper abdomen, not otherwise specified. He had no associated symptoms. Upon arrival here, he had CT scan, which showed a fluid collection in the left upper quadrant, which appear to abut his previous Whipple procedure. Here, he has been found to have anastomotic leak. At the jejunum, he has undergone upper endoscopy, which revealed ulcerations that appear benign. His pathology indicates acute on chronic mucosal inflammation with benign ulcer. He has been on piperacillin and tazobactam since admission. On February 07, he underwent CT-guided fluid drainage. Culture was collected and yesterday revealed budding yeast. He was started on fluconazole yesterday. Consultation requested today. No other events nor interventions. He is planned on operative intervention later today by Dr. Machuca. He denies any abdominal pain currently. ALLERGIES: NAPROXEN CAUSED RASH. MEDICATIONS: Home medication list. No immunosuppressants. No antibiotics. HABITS: Quarter pack of cigarettes per day and alcohol to excess. PAST MEDICAL HISTORY: In addition to the above, Whipple procedure for IPMN, cholecystectomy, previous UTI, urinary retention, GERD, hypertension, and chronic renal insufficiency. REVIEW OF SYSTEMS: 14-point review attempted, otherwise not obtainable from the patient due to dementia. FAMILY HISTORY: Pancreatic cancer, otherwise not pertinent to his present illness. SOCIAL HISTORY: He is listed as retired and has family locally, of course not present at the bedside. PHYSICAL EXAMINATION: GENERAL: This is a cachectic male who appears his actual age. No respiratory distress. VITAL SIGNS: Since arrival, he has been afebrile, 148/61, 90, 15, 97%. SKIN: Decreased turgor. No rashes. Warm and dry. No skin breakdown. EENT: Pupils are minimally reactive. No conjunctival injection. No icterus. Mucous membranes are well hydrated. No thrush. No ulcers. NECK: Without meningismus, mass, tracheal deviation. CHEST: Equal expansion. Normal AP diameter. LUNGS: Clear to auscultation on tidal respirations. CARDIAC: Regular rate and rhythm. No murmur or gallop. Pulses are 1+. ABDOMEN: He has a left upper quadrant drain in place with bilious material in the bag. No blood. He is diffusely tender without guarding. He has hypoactive bowel sounds. No masses. No organomegaly. EXTREMITIES: No clubbing, cyanosis, edema. He has marked distal muscle wasting. NEUROLOGIC: He is awake, responds to simple requests. Normal muscle tone. LABORATORY DATA: No blood cultures collected. Pathology as noted above. MRSA screen is negative. Fluid from the , no white cells, budding yeast with pseudohyphae seen. Cultures grown yeast to be identified. No anaerobes nor bacteria isolated. Urine specimen from admission with multiple organisms including Klebsiella oxytoca. His white blood cell count on admission was 9.4, erwin into the 12 range and normalized, and since the has been high, 12.2 today; hemoglobin 9.8, which is quite stable; platelets are 543. His hyponatremia is resolved. He has mild hypokalemia. BUN 10, creatinine 1.3 with admission creatinine as high as 2.2. Estimated GFR is 53. His liver function tests done most recently on the showed an albumin of 2.1, AST of 15, bilirubin normal. Urinalysis from the , multiple abnormalities not medically suggestive of infection. RADIOLOGY: Upper GI series with Gastrografin, leakage of contrast in the l
== END 2019-12-04 16:25 | disposition home or self-care (01) | DRG 381 ==
LOC: ANHED 18:57 → ANH3MED 19:01
PROVIDERS: Internal Medicine Gastroenterology; Physician Assistant; Admitting Provider Internal Medicine; Emergency Provider Emergency Medicine; PCP Internal Medicine; Visit Provider Internal Medicine
PROC: 0DJ08ZZ Inspection of Upper Intestinal Tract, Via Natural or Artificial Opening Endoscopic (ICD-10-PCS; CPT 43235; principal; 2019-12-02 11:30)
DX: K28.3 Acute gastrojejunal ulcer without hemorrhage or perforation (principal); N17.9 Acute kidney failure, unspecified; Z90.49 Acquired absence of other specified parts of digestive tract; Z90.411 Acquired partial absence of pancreas; Z90.3 Acquired absence of stomach [part of]; R33.9 Retention of urine, unspecified; I10 Essential (primary) hypertension; F03.90 Unspecified dementia, unspecified severity, without behavioral disturbance, psychotic disturbance, mood disturbance, and anxiety; R01.1 Cardiac murmur, unspecified; E86.0 Dehydration; K86.89 Other specified diseases of pancreas; N18.9 Chronic kidney disease, unspecified; D13.6 Benign neoplasm of pancreas
CPT/HCPCS: 36415; 71046; 71250; 74176; 80048; 80053; 80076; 81001; 83690; 83735; 84100; 84443; 85014; 85018; 85025; 85027; 87081; 87086; 87088; 88305; 96361; 96365; 96375; 97110; 97161; 97165; 97530; 97535; 99285; A9270; C9113; G0378; J0696; J2704; J7030; J7120

== ENCOUNTER 2019-12-13 10:53 | Outpatient (CLI) | payer MEDICARE, SELFPAY ==
[2019-12-13 11:57] LABS: Hemoglobin 9.4 g/dL (14.0-18.0); Mean Corpuscular HGB Conc 30.3 g/dl (32-36); Mean Platelet Volume 10.7 fl (7.4-10.4); Platelet Count Result 313 k/mm3 (150-375); Red Blood Count 3.13 M/mm3 (4.6-6.20); Red Cell Distribution Width 14.6 % (11.5-14.5); White Blood Count 7.5 K/mm3 (4.5-10.0)
== END 2019-12-13 10:54 | disposition home or self-care (01) ==
PROVIDERS: PCP Internal Medicine; Visit Provider Physician Assistant
DX: D64.9 Anemia, unspecified (principal)
CPT/HCPCS: 36415; 85027

== ENCOUNTER 2020-01-06 08:43 | Emergency (ER) | payer MEDICARE, SELFPAY ==
[2020-01-06] VITALS (8 sets, daily range): BP systolic 128–168; BP diastolic 52–120; PULSE 61–80; RESP 15–31; TEMP 36.3; O2SAT 100
--- NOTE | ~2020-01-06 | CT_ITS ---
EXAMINATION: CT abdomen pelvis w con DATE: 01/06/2020 09:33 INDICATION: Left upper quadrant abdominal pain TECHNIQUE: Computed tomography (CT) of the abdomen and pelvis was performed with 100 cc Omnipaque 350 intravenous contrast. Automated exposure control and iterative reconstruction technique were employe d. Exam dose: 188.56 mGy-cm total exam DLP. COMPARISON: 11/30/2019 CT chest abdomen pelvis FINDINGS: There is chronic discoid scarring at the posterior lower lobes. Heart size is normal. No pericardial or pleural effusion. There is extensive pneumobilia. There is resection of the pancreatic head, neck and portion of the body, consistent with Whipple proc edure. There are numerous calcifications of the pancreatic body and tail, consistent with chronic pa ncreatitis. No hepatic, pancreatic, splenic, adrenal or solid renal space occupying mass lesion is detected. There are bilateral renal cysts, measuring up to 2.4 cm on the right, 2.8 cm on the left. Up to approximately 3.8 x 8.5 mm mid right renal calculus. Approximately 2.2 x 3.4 mm nonobstructing calculus. Approximately 8.5 mm lower pole nonobstructing right renal calculus. There are approximately 4 left renal calculi measuring up to 3.5 mm. No ureteral calculus or hydroureteronephrosis. There is diffuse thickening of the urinary bladder, which may be due to lack of distention or cystiti s. Prostate enlargement and calcification. There is atherosclerotic calcification of the abdominal aorta. Normal appendix. The proximal small bowel is dilated up to 3.4 mm. There is no transition point or apparent bowel obstruction. There are scattered small bowel air fluid levels. No intraperitoneal or retroperitoneal or pelvic mass lesion or lymphadenopathy or ascites is detected . No significant skeletal finding. IMPRESSION: Status post Whipple procedure Chronic pancreatitis Bilateral renal cysts Bilateral nonobstructing nephrolithiasis Nonspecific mild proximal jejunal dilatation, occasional small bowel air fluid levels, without appare nt obstruction Diffuse bladder wall thickening; cannot exclude cystitis Reviewed, dictated and finalized at [facility]. Reviewed, dictated and finalized at location [facility]. IMPRESSION: Status post Whipple procedure Chronic pancreatitis Bilateral renal cysts Bilateral nonobstructing nephrolithiasis Nonspecific mild proximal jejunal dilatation, occasional small bowel air fluid levels, without apparent obstruction Diffuse bladder wall thickening; cannot exclude cystitis
--- NOTE | 2020-01-06 08:46 | ED.ABDPAIN ---
HPI - Abdominal Pain General Chief Complaint: Abdominal Pain Stated Complaint: Abd Pain Time Seen by Provider: 01/06/20 08:46 Source: patient and RN notes reviewed Mode of arrival: EMS Limitations: no limitations History of Present Illness HPI narrative: Pt is an 84 y/o male presenting to the ED via EMS c/o ABD pain radiating to back. Pt reports he has been experiencing upper ABD pain for a month that has worsened recently. Pt states the pain is aggravated when he eats crunchy and choppy foods . 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 Pt denies fever, SOB, weakness, numbness, dizziness, or nausea. Pt reports he has been taking Tylenol for pain. Pertinent past history: other (Stomach cancer) Onset (ago): month(s) (1) Radiation: back Exacerbating factors: eating ( crunchy and choppy foods ) Associated symptoms: denies other symptoms Related Data Home Medications Medication Instructions Recorded Confirmed amlodipine 10 mg PO HS 11/29/19 11/29/19 benazepril 40 mg PO QAM 11/29/19 11/29/19 coQ10 (ubiquinol) 100 mg PO DAILY 11/29/19 11/29/19 fenofibrate 160 mg PO QAM 11/29/19 11/29/19 omega 5-eir-xbx-fish oil [Fish Oil] 1 cap PO QAM 11/29/19 11/29/19 quetiapine 25 mg PO HS 11/29/19 11/29/19 vitamin B complex 1 tablet PO DAILY 11/29/19 11/29/19 Allergies Allergy/AdvReac Type Severity Reaction Status Date / Time naproxen Allergy Unknown Rash Verified 01/06/20 08:51 Review of Systems Review of Systems: All systems reviewed & are unremarkable except as noted in HPI and below Constitutional: Constitutional: Denies fever(s) Respiratory: Respiratory: Denies dyspnea Gastrointestinal: Gastrointestinal: Reports abdominal pain (Upper radiating to back) and Denies nausea Neurologic: Denies dizziness, Denies numbness and Denies weakness PMFSH Past Medical History Medical History IPMN (intraductal papillary mucinous neoplasm) UTI due to Klebsiella species Surgical History Surgical History History of cholecystectomy History of pancreatectomy History of resection of stomach S/P small bowel resection Family History Family History Mother Patient's mother is Family history of cardiovascular disease Family history of malignant neoplasm Sibling Patient's sister is Patient's brother is Family history of multiple sclerosis Family history of Alzheimer's disease Family history of pancreatic cancer Family history of lung cancer Social History Social History Social History: Patient currently smokes 6-8 cigarettes a day. 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 Years smoked: 70 Smoking status: Current every day smoker Tobacco type: cigarettes Alcohol intake: former Substance use: never Gender identity (if verbalized by the patient): Male Spiritual care concerns: No Agree to blood products: Yes Exam Const: General: healthy appearing, no acute distress and alert Nutritional Appearance: well nourished Other: Elderly HENMT: Mouth: Yes lip normal Eyes: Conjunctivae: conjunctivae normal Resp: Effort & Inspection: normal respiratory effort Auscultation: clear to auscultation bilaterally Cardio: Rate: regular rate Rhythm: regular rhythm GI: Inspection: non-distended GI Palp: Yes Soft to palpation and Yes Tenderness to palpation present (GI) (Some LUQ) Back/Spine/Pelvis: Back: other (Full ROM) Skin: General skin exam: normal color Other: Warm; Dry Neuro: General: patient oriented x3 Speech: normal speech Extrem: General: full ROM Psych: Mental Status: mental status grossly normal Course Vital Signs Vital signs: Vital Signs Tem
--- NOTE | 2020-01-06 08:52 | ECG_ITS ---
Measurements Intervals [place] Rate: 76 P: 64 GA: 195 QRS: -12 QRSD: 109 T: 7 QT: 384 QTc: 433 Interpretive Statements SINUS RHYTHM FREQUENT VENTRICULAR PREMATURE COMPLEXES INCOMPLETE RIGHT BUNDLE BRANCH BLOCK BASELINE ARTIFACT- I, III, AVR, AVL, AVF, V1-V6 ABNORMAL ECG Electronically Signed On 01-06-2020 9:15:31 CDT by Lamberto Martinez D.O.
--- NOTE | 2020-01-06 09:08 | PC.NURSE ---
PT SRAVANI LUCAS HAS CALLED AND INFORMED THAT SHE WILL NOT BE COMING TO ED BUT WANTS TO BE CALLED FOR UPDATES AND D/C. CAN BE CALLED BACK AT [phone].
[2020-01-06 09:09] LABS: Basophils Percent Auto 0.7 % (0.2-1.2); Eosinophils Absolute Auto 0.2 K/mm3 (0-0.3); Eosinophils Percent Auto 3.2 % (0-4.4); Hematocrit 33.5 % (42.0-52.0); Hemoglobin 10.8 g/dL (14.0-18.0); Immature Granulocyte Absolute 0.01 K/mm3 (0.00-0.031); Immature Granulocyte Percent A 0.2 % (0-0.5); Lymphocytes Absolute Auto 1.11 K/mm3 (0.9-3.2); Lymphocytes Percent Auto 18.6 % (18.3-44.2); Mean Corpuscular HGB Conc 32.2 g/dl (32-36); Mean Corpuscular Hemoglobin 29.6 pg (26-34); Mean Corpuscular Volume 91.8 fl (80-100); Mean Platelet Volume 10.8 fl (7.4-10.4); Monocytes Absolute Auto 0.5 K/mm3 (0.1-0.6); Monocytes Percent Auto 7.7 % (2.6-8.5); Neutrophils Absolute Auto 4.2 K/mm3 (1.3-6.7); Neutrophils Percent Auto 69.6 % (45.5-73.1); Platelet Count Result 332 k/mm3 (150-375); Red Blood Count 3.65 M/mm3 (4.6-6.20); Red Cell Distribution Width 15.1 % (11.5-14.5)
--- NOTE | 2020-01-06 09:18 | PC.NURSE ---
Pt refused to give urine sample patient agreed to straight cath. While this RN was attempting straight cath, patient yelling at nurse stop stop, take it out right now, I'll go pee. This RN removed staight cath from patient, patient able to ambulate to restroom and give sterile urine sample.
[2020-01-06 09:24] LABS: Estimated Glomerular Filt Rate 34
[2020-01-06 09:58] LABS: INR 1.1; Prothrombin Time 13.6 Seconds (11.1-14.7)
[2020-01-06 09:59] LABS: Partial Thromboplastin Time 38.7 SECONDS (22.3-36.8)
[2020-01-06 10:01] LABS: Alanine Aminotransferase 15 U/L (4-50); Albumin Level 2.9 g/dL (3.5-5.1); Alkaline Phosphatase 81 U/L (38-126); Aspartate Amino Transferase 19 U/L (17-59); Bilirubin,Total 0.4 mg/dL (0.2-1.3); Blood Urea Nitrogen 17 mg/dL (9-20); Calcium 8.2 mg/dL (8.4-10.2); Carbon Dioxide 23 mmol/L (22-30); Chloride 111 mmol/L (98-107); Estimated Glomerular Filt Rate 36; Glucose 180 mg/dL (75-110); Lipase 184 U/L (23-300); Potassium 3.7 mmol/L (3.4-5.0); Sodium 141 mmol/L (137-145)
[2020-01-06 10:12] LABS: Troponin I < 0.012 ng/mL (0.000-0.034)
[2020-01-06 11:08] LABS: Add Urine Microscopic? YES; Appearance Urine Cloudy (Clear); Bacteria Urine Trace /hpf; Bilirubin Urine Negative (Negative); Blood Urine 1+ (Negative); Budding Yeast Urine Present /hpf; Color Urine Yellow (Yellow); Glucose Urine UA Negative (Negative); Hyaline Casts Urine 30-49 /lpf; Ketones Urine Negative (Negative); Leukocyte Esterase Ur 3+ LEU/UL (Negative); Mucus Urine Rare /lpf; Nitrate Urine Negative (Negative); Protein Urine 1+ mg/dL (Negative); RBC Urine 51-75 /hpf (0-2); Squamous Epithelial Cell Urine Many /hpf (Few); Urobilinogen Urine Negative mg/dL (<2.0)
--- NOTE | 2020-01-06 11:33 | PC.NURSE ---
pts daughter (POA), Lida was called by this RN. This RN explained that patient was discharged and review todays care. Lida states that she will be here in 20 minutes to pick her father up.
== END 2020-01-06 11:51 | disposition home or self-care (01) ==
PROVIDERS: Emergency Provider Emergency Medicine; PCP Internal Medicine
DX: R10.13 Epigastric pain (principal); Z90.49 Acquired absence of other specified parts of digestive tract; Z87.440 Personal history of urinary (tract) infections; F17.210 Nicotine dependence, cigarettes, uncomplicated; I49.3 Ventricular premature depolarization; I45.10 Unspecified right bundle-branch block; K86.1 Other chronic pancreatitis; N28.1 Cyst of kidney, acquired; N20.0 Calculus of kidney; R93.41 Abnormal radiologic findings on diagnostic imaging of renal pelvis, ureter, or bladder; Z90.411 Acquired partial absence of pancreas; Z90.3 Acquired absence of stomach [part of]; Z85.028 Personal history of other malignant neoplasm of stomach
CPT/HCPCS: 36415; 51701; 74177; 80053; 81001; 83690; 84484; 85025; 85610; 85730; 87077; 87086; 87088; 87186; 93005; 99284; Q9967

== ENCOUNTER 2020-01-30 20:02 | Inpatient (IN) | payer MEDICARE, SELFPAY ==
--- NOTE | ~2020-01-30 | XR_ITS ---
EXAMINATION: XR abdomen/kub 1V DATE: 02/02/2020 07:28 INDICATION: Free intraperitoneal gas. TECHNIQUE: A supine view of the abdomen was obtained. COMPARISON: Abdomen radiographs 02/01/2020 FINDINGS: There are dilated loops of small bowel. The colon is normal in caliber. Free intraperitonea l gas is noted. The nasogastric tube tip is in the stomach. There is a surgical clip in left abdomen. IMPRESSION: 1. Dilated small bowel, likely adynamic ileus. 2. Free intraperitoneal gas again seen, consistent with perforated viscus. Reviewed, dictated and finalized at location [facility].
--- NOTE | ~2020-01-30 | CT_ITS ---
EXAMINATION: CT abdomen pelvis wo con DATE: 01/30/2020 21:14 INDICATION: Epigastric pain TECHNIQUE: Computed tomography (CT) of the abdomen and pelvis was performed without intravenous contr ast. The dose-length product was 203.78 mGy-cm. Automated exposure control and iterative reconstructi on technique were employed. COMPARISON: CT dated 01/06/2016 FINDINGS: Lung bases unremarkable. Heart size normal. No significant pleural effusion. There is no pl eural thickening of the left diaphragm. There are surgical changes consistent with Whipple procedure with pneumobilia. There is chronic pancreatitis. The liver, adrenal glands are unremarkable. There ar e calcified granulomas of the spleen. There are nonobstructing bilateral renal stones. Stable bilater al renal cysts. Moderate atherosclerosis of the aorta without aneurysm. No bowel obstruction. Mild th ickening of the colon at the splenic flexure with pericolonic inflammation. There is adjacent wall th ickening and surrounding inflammatory change of the Nik limb immediately distal to the gastrojejunal anastomosis. These findings are most likely infectious, inflammatory or malignant. No significant ch ishmael dating back to 11/30/2019. No free air. No abnormal pelvic masses or fluid collections. No osteo lytic or osteoblastic lesions. There is moderate distention of the stomach with fluid and debris. IMPRESSION: 1. Mild thickening of the colon at the splenic flexure with pericolonic inflammation. There is adjace nt wall thickening and surrounding inflammatory change of the Nik limb immediately distal to the gas trojejunal anastomosis. These findings are most likely infectious, inflammatory or malignant. No sign ificant change dating back to 11/30/2019. Reviewed, dictated and finalized at location A. IMPRESSION: 1. Mild thickening of the colon at the splenic flexure with pericolonic inflamm ation. There is adjacent wall thickening and surrounding inflammatory change of the Nik limb immediately distal to the gastrojejunal anastomosis. These findi ngs are most likely infectious, inflammatory or malignant. No significant baer e dating back to 11/30/2019.
--- NOTE | ~2020-01-30 | XR_ITS ---
XR abdomen/kub 1V 02/03/2020 08:22 Indication: Free intraperitoneal air. Procedure: KUB Comparison: 02/02/2020 Findings: Nonspecific bowel gas pattern with moderate gas throughout the small bowel and colon. Supin e view of the abdomen is limited for evaluation of free intraperitoneal air. Recommend upright or lef t lateral decubitus views of the abdomen. No abnormal calcifications. NG tube not identified on curre nt study. Impression: 1: Nonspecific bowel gas pattern. Study limited for evaluation of free air. Recommend upright or left lateral decubitus view of the abdomen. Reviewed, dictated and finalized at location A. Impression: 1: Nonspecific bowel gas pattern. Study limited for evaluation of free air. Rec ommend upright or left lateral decubitus view of the abdomen.
--- NOTE | ~2020-01-30 | XR_ITS ---
EXAMINATION: XR abdomen/kub 1V DATE: 02/04/2020 06:02 INDICATION: Small bowel obstruction TECHNIQUE: A supine view of the abdomen on 2 radiographs and a supine view of the chest were obtaine d. COMPARISON: 02/03/2020 FINDINGS: Gas scattered throughout multiple loops of nondilated small bowel and colon. A few surgical clips in the upper abdomen. Diffuse hazy opacity throughout the left mid and upper lung zones with more dense consolidation in the left lower lung zone consistent with moderate-sized posteriorly layering left pl eural effusion with associated left basilar atelectasis and/or pneumonia. Right lung is clear. No pne umothorax or right-sided pleural effusion. Cardiomegaly mediastinal silhouette is within normal limit s for AP technique. Left upper extremity peripherally inserted central venous catheter (PICC) tip at the left axillary vein. Osteoma along the left seventh rib. IMPRESSION: 1. Gas scattered throughout nondilated large and small bowel consistent with ileus. 2. Moderate left pleural effusion with left basilar atelectasis and/or pneumonia. Reviewed, dictated and finalized at location A. IMPRESSION: 1. Gas scattered throughout nondilated large and small bowel consistent with il eus. 2. Moderate left pleural effusion with left basilar atelectasis and/or pneumoni a.
--- NOTE | ~2020-01-30 | XR_ITS ---
EXAMINATION: XR abdomen obstructive series DATE: 01/31/2020 14:00 INDICATION: Acute gastrojejunal ulcer, post EGD TECHNIQUE: Upright and supine views of the abdomen were obtained. COMPARISON: CT from yesterday FINDINGS: There is gaseous distention of the stomach, consistent with earlier endoscopy. There appear s to be some free intraperitoneal gas on the supine views. There is atelectasis of the left lung base . Right nephrolithiasis is noted. IMPRESSION: 1. Possible free intraperitoneal gas. Consider further evaluation with CT. Reviewed, dictated and finalized at location B.
--- NOTE | ~2020-01-30 | XR_ITS ---
XR abdomen NG/feed tube rechec DATE: 01/31/2020 16:22 INDICATION: NG tube position recheck TECHNIQUE: Portable AP view on 01/31/2020 at 1619 hours COMPARISON: 01/31/2020 KUB at 1351 hours FINDINGS: NG tube is unchanged in position, overlying the left upper quadrant. Intraperitoneal free a ir is suggested. There is interval air in the biliary tree. IMPRESSION: NG tube unchanged in position or alignment left upper quadrant. Reviewed, dictated and finalized at [facility]. Reviewed, dictated and finalized at location [facility].
--- NOTE | ~2020-01-30 | XR_ITS ---
EXAMINATION: XR UGI water soluble wo kub DATE: 02/10/2020 10:04 INDICATION: Perforated marginal ulcer with left upper quadrant abscess TECHNIQUE: The patient was unable to swallow oral contrast material. A nasogastric tube was placed wi th positioning of the distal tip in the stomach confirmed by fluoroscopy. Fluoroscopic images of the stomach and proximal small bowel were obtained following water-soluble contrast administration throug h the nasogastric tube. A total of 9 fluoroscopic spot images were obtained. Fluoroscopy exposure elsa e was 1.8 minutes. COMPARISON: None. FINDINGS: [employer] image demonstrates a percutaneous abscess drain with loops formed in the left upper quadrant. T here is a nearby surgical clip. Subsequent image demonstrates nasogastric tube with tip in proximal s colleen port in the body of the stomach. Contrast fills the stomach with contrast initially extending thr ough a leak at the site of the gastrojejunal anastomosis. Contrast extends around the region of the s urgical clip, passes along side the distal loop of the abscess drain and into a larger more cephalad pocket of the abscess cavity. Contrast is seen extending into the drainage catheter. Subsequently con trast was seen extending more caudally into the left abdomen through the defect limb of the gastric b ypass procedure. IMPRESSION: 1. Prompt leakage of a significant amount of the injected contrast into the left upper quadrant absce ss cavity which appears to occur at the site of the gastrojejunal anastomosis. No obstruction of flow into the inferior limb which appears normal. 2. Drainage of a portion of the leaked contrast into the left upper quadrant abscess drain. Reviewed, dictated and finalized at location A. IMPRESSION: 1. Prompt leakage of a significant amount of the injected contrast into the lef t upper quadrant abscess cavity which appears to occur at the site of the gastr ojejunal anastomosis. No obstruction of flow into the inferior limb which appea rs normal. 2. Drainage of a portion of the leaked contrast into the left upper quadrant ab scess drain.
--- NOTE | ~2020-01-30 | XR_ITS ---
EXAMINATION: XR fl guide central line place INDICATION: Central line placement TECHNIQUE: A single fluoroscopic image is submitted for review. Fluoroscopy exposure time was 39.7 se conds. The DAP for this procedure was 0.1381 mGycm2. COMPARISON: None available FINDINGS: The central line is not well demonstrated on this single fluoroscopic image. IMPRESSION: Please refer to procedure note for full details. Reviewed, dictated and finalized at location A.
--- NOTE | ~2020-01-30 | CT_ITS ---
EXAMINATION: CT guide absc cath placement DATE: 02/08/2020 17:45 INDICATION: Large intraperitoneal abscess. TECHNIQUE: The procedure including the risks and benefits was discussed with the patient's sister. Ri sks discussed included bleeding and infection. She understood the risks and benefits and agreed to pr oceed. The patient was confirmed to be receiving appropriate antibiotic coverage. The skin overlying the anterior subcostal left upper quadrant was prepped and draped in usual sterile fashion. Anesthe tic was administered with 1% lidocaine subcutaneously. An 18 [place] trocar needle was inserted into t he peritoneal fluid collection utilizing CT guidance. The inner stylet was removed and a wire advance d into the fluid collection with positioning confirmed by CT. Utilizing Seldinger technique the needl e was removed over the wire and the tract serially dilated to [address] [place] A [address] [facility] [place] catheter was adv anced over the wire into the fluid collection in the loop formed with positioning confirmed by CT. Th e wire was removed, the catheter attached to the skin with suture. Antibiotic ointment and a sterile dressing were applied. An additional adhesive fixation device was applied. 20 mm of opaque and debris containing all of-colored fluid was aspirated and sent to the lab for Gram stain and cultures. The c atheter was attached to suction drainage and then additional 500 mL fluid was aspirated. There were n o immediate complications. The dose-length product was 165.39 mGy-cm. FINDINGS: CT images demonstrate the catheter within the left upper quadrant fluid collection. 20 mL f luid was aspirated for testing. IMPRESSION: 1. Successful CT-guided left upper quadrant abscess drainage. 2. 20 mL fluid was sent for aerobic and anaerobic cultures. 3. The catheter will be managed by Dr. Machuca. Reviewed, dictated and finalized at location A.
--- NOTE | ~2020-01-30 | XR_ITS ---
EXAMINATION: XR chest port-a-cath/central INDICATION: Central line placement TECHNIQUE: Portable AP chest at 2022 hours COMPARISON: 02/07/2020 FINDINGS: A right subclavian central venous catheter ends with its tip in the distal superior vena ca va. The endotracheal tube ends approximately 1 cm above the david. A nasogastric tube has been inser xavi which ends with its tip in the stomach and proximal side port in the distal esophagus. There is a small left pleural effusion, decreased from the comparison examination. Airspace opacities of the le ft mid and lower lung zone persist but have also decreased. There is no pneumothorax. IMPRESSION: 1. Right subclavian central venous catheter insertion without pneumothorax. 2. Endotracheal tube insertion ending approximately 1 cm above the david. 3. Nasogastric tube ending in the stomach with proximal side port of the distal esophagus. Recommend advancing. 4. Small left pleural effusion, decreased in size. 5. Improved airspace opacities of the left mid and lower lung zones, consistent with atelectasis vers us pneumonia. Reviewed, dictated and finalized at location A. IMPRESSION: 1. Right subclavian central venous catheter insertion without pneumothorax. 2. Endotracheal tube insertion ending approximately 1 cm above the david. 3. Nasogastric tube ending in the stomach with proximal side port of the distal esophagus. Recommend advancing. 4. Small left pleural effusion, decreased in size. 5. Improved airspace opacities of the left mid and lower lung zones, consistent with atelectasis versus pneumonia.
--- NOTE | ~2020-01-30 | CT_ITS ---
EXAMINATION: CT brain wo con DATE: 02/07/2020 15:19 INDICATION: Status post fall. Headache. TECHNIQUE: Computed tomography (CT) of the head was performed without intravenous contrast. The dose- length product was 605.33 mGy-cm. Automated exposure control and iterative reconstruction technique w ere employed. COMPARISON: None FINDINGS: Generalized atrophy. Chronic right parietal infarction. There are scattered moderate perive ntricular and subcortical white matter changes, most likely related to small vessel ischemic disease (microangiopathy). No ventriculomegaly or midline shift. Basilar cisterns are patent. Paranasal sinus es and mastoids are pneumatized. No depressed skull fractures. No acute intracranial hemorrhage, infa rction, mass or mass effect. No ventriculomegaly or midline shift. Basilar cisterns are patent. Midli ne sagittal images are unremarkable. IMPRESSION: 1. No acute intracranial abnormality. 2: Chronic right parietal infarction. 3: Chronic age-related findings. Reviewed, dictated and finalized at location A.
--- NOTE | ~2020-01-30 | CT_ITS ---
EXAMINATION: CT chest abdomen pelvis wo con EXAM DATE: 02/08/2020 09:56 INDICATION: Leukocytosis, low-grade fever, gastric perforation. TECHNIQUE: Spiral CT of the chest, abdomen and pelvis was performed without contrast. Axial, hairston l and sagittal images were reviewed. Coronal maximum intensity pixel images of chest reviewed. The dose-length product (DLP) for this examination was 402.00 mGy-cm. The exposure was tailored accordin g to patient size (auto mA exposure control), and iterative reconstruction (ASIR) was used as additio nal dose reduction technique. Comparison is made to prior examination from 01/30/2020. FINDINGS: CHEST: There is moderate-sized left pleural effusion with adjacent multisegmental left lower lobe a telectasis. Tracheobronchial tree is patent. There is no mediastinal, hilar or axillary lymphadeno annel. There is no pneumothorax. Heart normal in size. There is mild coronary arterial calcific ation, arterial sclerosis. ABDOMEN PELVIS: There is a large fluid collection located below the left diaphragm, spleen extending anterior to the stomach with thick wall, air-fluid level, probably a large abscess. Collection is cre scent-shaped, but measures about 15 cm in AP dimension by 17 cm in craniocaudal dimension. Multiple s mall foci of free intraperitoneal, mesenteric, retroperitoneal foci of retroperitoneal gas are presen t. Pancreatic calcifications, chronic pancreatitis. Splenic granulomas. Liver, adrenal glands are unrema rkable. Gallbladder is unremarkable. No biliary obstruction. There is no hydronephrosis. There are multiple kidney stones bilaterally. The prostate is unremarkable. The bladder is unremarkable. Th ere is no retroperitoneal or pelvic lymphadenopathy. The stomach and small bowel are unremarkable. There are no osteoblastic or osteolytic lesions identi fied. IMPRESSION: 1. Large air/fluid collection below left hemidiaphragm, contiguous to spleen, stomach consistent wit h abscess. Would be amenable to percutaneous catheter placement but given the large amount of gas, co uld still freely communicate with gastric ulcerated perforation if not undergone surgery. 2. Scattered foci of free intraperitoneal, retroperitoneal gas. 3. Moderate left pleural effusion, adjacent multisegmental atelectasis. Reviewed, dictated and finalized at location A. IMPRESSION: 1. Large air/fluid collection below left hemidiaphragm, contiguous to spleen, stomach consistent with abscess. Would be amenable to percutaneous catheter charity cement but given the large amount of gas, could still freely communicate with g astric ulcerated perforation if not undergone surgery. 2. Scattered foci of free intraperitoneal, retroperitoneal gas. 3. Moderate left pleural effusion, adjacent multisegmental atelectasis.
--- NOTE | ~2020-01-30 | CT_ITS ---
EXAMINATION: CT cervical spine wo con DATE: 02/07/2020 15:19 INDICATION: Status post fall. Neck pain. TECHNIQUE: Computed tomography (CT) of the cervical spine was performed without intravenous contrast. The dose-length product was 138 mGy-cm. Automated exposure control and iterative reconstruction tech nique were employed. COMPARISON: None FINDINGS: Left pleural effusion is identified. Emphysematous changes are noted in the apices. There i s fusion at C4-5 and C5-6. Moderate disc narrowing and endplate degenerative change at C6-7. Odontoid process within normal limits. There is multilevel uncinate and facet degenerative change. No acute f racture or traumatic malalignment. No evidence for perched facet. IMPRESSION: 1. No acute abnormality of the cervical spine. Reviewed, dictated and finalized at location A.
--- NOTE | ~2020-01-30 | XR_ITS ---
EXAMINATION: XR abdomen obstructive series DATE: 02/01/2020 08:34 INDICATION: Free intraperitoneal gas. TECHNIQUE: Upright and supine views of the abdomen were obtained. COMPARISON: CT abdomen and pelvis 01/30/2020 FINDINGS: There are dilated loops of small bowel. There is free intraperitoneal gas. The nasogastric tube tip is in the stomach. Surgical clips overlie the abdomen. There is mild atelectasis at left megan g base. IMPRESSION: 1. Free intraperitoneal gas, consistent with perforated viscus. 2. Dilated small bowel, likely adynamic ileus. Reviewed, dictated and finalized at location A.
--- NOTE | ~2020-01-30 | XR_ITS ---
EXAMINATION: XR abdomen/kub 1V DATE: 02/05/2020 05:27 INDICATION: Small bowel obstruction. TECHNIQUE: A supine view of the abdomen on 2 radiographs was obtained. COMPARISON: Abdomen single view 02/04/2020, CT abdomen and pelvis 01/30/2020 FINDINGS: There are dilated loops of small bowel. The colon is normal in caliber. There is free intra peritoneal gas predominantly in the upper abdomen. IMPRESSION: 1. Persistently dilated loops of small bowel, consistent with adynamic ileus versus partial obstructi on. 2. Free intraperitoneal gas without change. Reviewed, dictated and finalized at location A. IMPRESSION: 1. Persistently dilated loops of small bowel, consistent with adynamic ileus ve rsus partial obstruction. 2. Free intraperitoneal gas without change.
--- NOTE | ~2020-01-30 | XR_ITS ---
EXAMINATION: XR abdomen NG/feed tube insert INDICATION: OG tube placement TECHNIQUE: Portable AP KUB-NG at 2023 hours COMPARISON: 02/05/2020 FINDINGS: Tip of the nasogastric tube is in the stomach with proximal side port in the distal esophag us. There are surgical drains of the upper abdomen. A small left pleural effusion is noted. A partial ly imaged right-sided central venous catheter ends with its tip in the distal superior vena cava. Rig ht basilar airspace opacities are consistent with atelectasis versus pneumonia. Free intraperitoneal gas is again noted. IMPRESSION: 1. Tip of the nasogastric tube in the stomach with the proximal side port in the distal esophagus. Tu be can be safely advanced 6 cm. Reviewed, dictated and finalized at location A. IMPRESSION: 1. Tip of the nasogastric tube in the stomach with the proximal side port in th e distal esophagus. Tube can be safely advanced 6 cm.
--- NOTE | ~2020-01-30 | XR_ITS ---
EXAMINATION: XR chest 1V portable DATE: 02/07/2020 05:51 INDICATION: Pleural effusion. TECHNIQUE: A single frontal view of the chest was obtained. COMPARISON: Chest single view 02/05/2020, CT abdomen and pelvis 01/26/2020 FINDINGS: There is a moderate-sized left pleural effusion. There are airspace opacities at left lung base. There is mild atelectasis at right lung base. No pneumothorax. The heart size is normal. Calcif ied mediastinal lymph nodes are consistent with old granulomatous disease. Again seen is free intrape ritoneal gas. There is a catheter tip in left axilla. IMPRESSION: 1. Stable moderate-sized left pleural effusion. 2. Improved airspace opacities at left lung base, consistent with atelectasis versus pneumonia. 3. Free intraperitoneal gas again seen. Reviewed, dictated and finalized at location A. IMPRESSION: 1. Stable moderate-sized left pleural effusion. 2. Improved airspace opacities at left lung base, consistent with atelectasis v ersus pneumonia. 3. Free intraperitoneal gas again seen.
--- NOTE | ~2020-01-30 | XR_ITS ---
XR abdomen NG/feed tube insert DATE: 01/31/2020 14:58 INDICATION: NG tube placement] TECHNIQUE: Portable upright AP abdomen on 01/31/2020 at 1451 hours COMPARISON: 01/31/2020 obstructive series FINDINGS: A nasogastric tube overlies the body of the stomach. Intraperitoneal free air is suggested. There is infiltrate and/atelectasis at the left lung base, left lower lobe. IMPRESSION: NG tube in stomach Suspected intraperitoneal free air Reviewed, dictated and finalized at Location A. Reviewed, dictated and finalized at location A.
--- NOTE | ~2020-01-30 | XR_ITS ---
EXAMINATION: XR chest 1V portable INDICATION: Decreased breath sounds on the left TECHNIQUE: Portable AP chest at 1121 hours COMPARISON: 11/29/2019 FINDINGS: A moderate-sized left pleural effusion has developed. There are airspace opacities in the l eft mid and lower lung zones. The right lung is clear. No pneumothorax is identified. The heart size is normal. IMPRESSION: 1. Moderate-sized left pleural effusion with airspace opacities of the left mid and lower lung zones, likely atelectasis. Reviewed, dictated and finalized at location A.
[2020-01-30 20:04] VITALS: BP 147/81; PULSE 97; RESP 18; TEMP 36.4; O2SAT 99
[2020-01-30] MEDS: MORPHINE SULFATE 4 MG/ML INJ IV PUSH (20:44)
[2020-01-30 20:45] LABS: Basophils Absolute Auto 0.1 K/mm3 (0.0-0.1); Basophils Percent Auto 0.4 % (0.2-1.2); Eosinophils Absolute Auto 0.1 K/mm3 (0-0.3); Eosinophils Percent Auto 1.2 % (0-4.4); Hematocrit 35.3 % (42.0-52.0); Hemoglobin 11.2 g/dL (14.0-18.0); Immature Granulocyte Absolute 0.04 K/mm3 (0.00-0.031); Immature Granulocyte Percent A 0.4 % (0-0.5); Lymphocytes Absolute Auto 0.89 K/mm3 (0.9-3.2); Mean Corpuscular HGB Conc 31.7 g/dl (32-36); Mean Corpuscular Hemoglobin 29.2 pg (26-34); Mean Corpuscular Volume 92.2 fl (80-100); Mean Platelet Volume 10.4 fl (7.4-10.4); Monocytes Absolute Auto 0.4 K/mm3 (0.1-0.6); Monocytes Percent Auto 3.3 % (2.6-8.5); Neutrophils Absolute Auto 9.7 K/mm3 (1.3-6.7); Neutrophils Percent Auto 86.7 % (45.5-73.1); Platelet Count Result 344 k/mm3 (150-375); Red Blood Count 3.83 M/mm3 (4.6-6.20); White Blood Count 11.2 K/mm3 (4.5-10.0)
[2020-01-30 20:58] LABS: Alanine Aminotransferase 18 U/L (4-50); Albumin Level 3.3 g/dL (3.5-5.1); Alkaline Phosphatase 99 U/L (38-126); Aspartate Amino Transferase 20 U/L (17-59); Bilirubin,Total 0.5 mg/dL (0.2-1.3); Blood Urea Nitrogen 34 mg/dL (9-20); Calcium 9.3 mg/dL (8.4-10.2); Carbon Dioxide 23 mmol/L (22-30); Chloride 112 mmol/L (98-107); Estimated CRCL calculation 15 ml/min; Estimated Glomerular Filt Rate 26; Glucose 170 mg/dL (75-110); Lipase 38 U/L (23-300); Potassium 3.8 mmol/L (3.4-5.0); Sodium 142 mmol/L (137-145)
[2020-01-30 21:32] VITALS: BP 120/74; PULSE 64; RESP 20; O2SAT 100
[2020-01-30] MEDS: PANTOPRAZOLE SODIUM IV 40 MG VIAL IV PUSH (22:55)
[2020-01-30] MEDS: SODIUM CHLORIDE 0.9% IV 1,000 ML 999 ML IV CONT (22:56)
[2020-01-30 22:58] VITALS: BP 108/57; PULSE 60; RESP 20; O2SAT 100
--- NOTE | 2020-01-30 23:05 | ED.ABDPAIN ---
HPI - Abdominal Pain General Chief Complaint: Abdominal Pain Stated Complaint: abd Time Seen by Provider: 01/30/20 20:10 History of Present Illness HPI narrative: Patient is a 84-year-old man who presents ER with epigastric pain worsening over the last day. Has history of gastric ulcers. Denies any dark black stools or overt bleeding. Mild nausea but no vomiting. No fever/chills/sweats. Has had no diarrhea. Related Data Home Medications Medication Instructions Recorded Confirmed coQ10 (ubiquinol) 100 mg PO DAILY 11/29/19 11/29/19 omega 4-yhg-msb-fish oil [Fish Oil] 1 cap PO QAM 11/29/19 11/29/19 vitamin B complex 1 tablet PO DAILY 11/29/19 11/29/19 amlodipine 01/31/20 Allergies Allergy/AdvReac Type Severity Reaction Status Date / Time naproxen Allergy Unknown Rash Verified 01/30/20 20:15 Review of Systems Review of Systems: All systems reviewed & are unremarkable except as noted in HPI and below Constitutional: Constitutional: Denies chills, Denies fever(s) and Denies weakness Gastrointestinal: Gastrointestinal: Reports abdominal pain, Denies heartburn, Denies diarrhea, Reports nausea and Denies vomiting Comments: No GI bleeding PMFSH Past Medical History Medical History IPMN (intraductal papillary mucinous neoplasm) UTI due to Klebsiella species Surgical History Surgical History History of cholecystectomy History of pancreatectomy History of resection of stomach S/P small bowel resection Family History Family History Mother Patient's mother is Family history of cardiovascular disease Family history of malignant neoplasm Sibling Patient's sister is Patient's brother is Family history of multiple sclerosis Family history of Alzheimer's disease Family history of pancreatic cancer Family history of lung cancer Social History Social History Social History: Patient currently smokes 6-8 cigarettes a day. 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 Smoking packs per day: 0.5 Smoking cigarettes per day: 10.0 Years smoked: 75 Smoking pack-years: 37.50 Smoking status: Light tobacco smoker Tobacco type: cigarettes Alcohol intake: former Substance use: never Gender identity (if verbalized by the patient): Male Spiritual care concerns: No Agree to blood products: Yes Exam Narrative: Exam Narrative: GENERAL: Well-appearing, well-nourished, and in no acute distress. HEAD: Normocephalic, atraumatic. ENT: Mucous membranes moist. NECK: Supple. CHEST: Clear to auscultation. No respiratory distress. HEART: Regular rate and rhythm. Normal peripheral pulses. ABDOMEN: Soft, epigastric tenderness with guarding as well as mild discomfort in the left upper quadrant, increased abdominal pain with movement on the bed, nondistended, normal active bowel sounds. EXTREMITIES: Normal range of motion. No edema. NEURO: Alert and oriented x3. PSYCH: Normal mood and affect. Course Course Emergency Course: Acute on chronic renal failure. Persistent pain in the epigastrium. Likely related to gastric ulcerations. Will give IV Protonix and hydrate. Observe. We will have GI consulted in the morning. Vital Signs Vital signs: Vital Signs Temperature 97.5 F L 01/30/20 20:04 Pulse Rate 97 01/30/20 20:04 Respiratory Rate 18 01/30/20 20:04 Blood Pressure 147/81 H 01/30/20 20:04 Pulse Oximetry 99 01/30/20 20:04 Temperature 96.8 F L 01/31/20 06:00 Pulse Rate 47 L 01/31/20 06:00 Respiratory Rate 14 01/31/20 06:00 Blood Pressure 104/50 L 01/31/20 06:00 Pulse Oximetry 100 01/31/20 06:00 MDM - Abdominal Pain Lab Data Res
[2020-01-31] VITALS (14 sets, daily range): BP systolic 104–173; BP diastolic 47–91; PULSE 47–114; RESP 14–28; TEMP 35.9–36.7; O2SAT 95–100; BMI 16.6; BMI 16.7
--- NOTE | 2020-01-31 01:53 | ADMGEN ---
This patient, Isiah Tobar, was admitted to Medical Room 342-01. Patient/family oriented to hospital policies and general routines including ID bracelet, bed and alarms, visiting hours, pain management, procedures, bathroom and other care routines, personal items, smoking policy, room service/diet, and visiting hours. Valuables list has been completed. Information on how to activate the Rapid Response Team has been discussed. Patient/Family are encouraged to report perceived risks to care and to ask questions if they do not understand what they are told or what they should do.
[2020-01-31 01:55] LABS: Add Urine Microscopic? YES; Appearance Urine Cloudy (Clear); Bacteria Urine Trace /hpf; Bilirubin Urine Negative (Negative); Blood Urine Negative (Negative); Color Urine Yellow (Yellow); Glucose Urine UA Negative (Negative); Ketones Urine Negative (Negative); Leukocyte Esterase Ur 3+ LEU/UL (Negative); Mucus Urine Few /lpf; Nitrate Urine Negative (Negative); Protein Urine 1+ mg/dL (Negative); RBC Urine 21-50 /hpf (0-2); Specific Grav Ur 1.018 (1.001-1.035); Squamous Epithelial Cell Urine Many /hpf (Few); WBC Urine 31-50 /hpf
--- NOTE | 2020-01-31 03:54 | PM.IMHP ---
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 The patient just recently underwent endoscopic evaluation in November which demonstrated multiple cratered ulcers in the jejunum. The patient has been on carafate and PPI therapy per Gastroenterology. Tonight in the ER CT abd/pelvis demonstrated mild thickening of the colon at the splenic flexure with pericolonic inflammation. There is adjacent wall thickening and surrounding inflammatory change of the Nik limb immediately distal to the gastrojejunal anastomosis. On my encounter with the patient he currently denies any abodminal pain, nausea, vomiting, diarrhea, rectal bleeding, fever, cough, chest pain or heart burn. ER provider has asked that we admit the patient to the hospital for IV fluids, bowel rest, and have gastroenterology again evaluate the patient. No other complaints tonight. Review of Systems Review of Systems: All systems reviewed & are unremarkable except as noted in HPI and below PMFSH Past Medical History Medical History Chronic renal failure Dementia Essential hypertension Gastroesophageal reflux disease IPMN (intraductal papillary mucinous neoplasm) Urinary retention UTI due to Klebsiella species Surgical History Surgical History History of cholecystectomy History of pancreatectomy History of resection of stomach S/P small bowel resection Family History Family History Mother Patient's mother is Family history of cardiovascular disease Family history of malignant neoplasm Sibling Patient's sister is Patient's brother is Family history of multiple sclerosis Family history of Alzheimer's disease Family history of pancreatic cancer Family history of lung cancer Social History Social History Social History: Patient currently smokes 6-8 cigarettes a day. 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 Smoking packs per day: 0.5 Smoking cigarettes per day: 10.0 Years smoked: 75 Smoking pack-years: 37.50 Smoking status: Light tobacco smoker Tobacco type: cigarettes Alcohol intake: former Substance use: never Gender identity (if verbalized by the patient): Male Spiritual care concerns: No Agree to blood products: Yes Meds Home Medications and Allergies Home Medications Medication Instructions Recorded Confirmed Type tamsulosin 0.4 mg capsule 0.4 mg PO DAILY #30 cap 09/26/19 01/31/20 Rx omega 5-ion-lxg-fish oil [Fish Oil] 1 cap PO QAM 11/29/19 01/31/20 History vitamin B complex 1 tablet PO DAILY 11/29/19 01/31/20 History sucralfate 1 gram tablet 1 gm PO TID #90 tablet 12/18/19 01/31/20 Rx benazepril 40 mg tablet 40 mg PO DAILY #90 tablet 01/13/20 01/31/20 Rx fenofibrate 160 mg tablet 160 mg PO DAILY #90 tablet 01/13/20 01/31/20 Rx zrvrep-brgskkcr-rkpmkcr 1 cap PO TID #270 cap 01/13/20 01/31/20 Rx 25,000-79,000-105,000 unit capsule,delayed rel pantoprazole 40 mg tablet,delayed 40 mg PO Q12HR 30 Days #180 tablet 01/13/20 01/31/20 Rx release amlodipine 10 mg PO HS 01/31/20 01/31/20 History quetiapine 25 mg PO HS 01/31/20 01/31/20 History Allergies Allergy/AdvReac Type Severity Reaction Status Date / Time naproxen Allergy Unknown Rash Verified 01/30/20 20:15 Vital Signs Vital Signs - 24 hr 01/30/20 20:04 01/29
[2020-01-31] MEDS: SODIUM CHLORIDE 0.9% IV 1,000 ML 125 ML IV CONT ×2 (06:17→19:50)
--- NOTE | 2020-01-31 08:39 | WPDANESEPPF ---
Anes - Initial Pre Proc Eval Procedure: Operation Date: 01/31/20 10:00 Proposed Procedures p Esophagogastroduodenoscopy - Adalberto Abel MD Date/Time: 01/31/20 08:39 Surgeon: Diogenes Brooks PA-C Pre Op Diagnosis: acute on chronic renal failure/gastritis/colitis Patient Data Age: 84 Gender: M Height: 5 ft 6 in Weight: 47.1 kg Last Vital Signs Temp 36.0 C L 01/31/20 06:00 Pulse 47 L 01/31/20 06:00 Resp 14 01/31/20 06:00 BP 104/50 L 01/31/20 06:00 Pulse Ox 100 01/31/20 06:00 Allergies Allergy/AdvReac Type Severity Reaction Status Date / Time naproxen Allergy Unknown Rash Verified 01/30/20 20:15 Home Medications Medication Instructions Recorded Confirmed Type aspirin 81 mg tablet,delayed 81 mg PO DAILY #30 tablet 09/18/19 11/29/19 Rx release ferrous sulfate 325 mg (65 mg 325 mg PO DAILY #30 tablet 09/18/19 11/29/19 Rx iron) tablet tamsulosin 0.4 mg capsule 0.4 mg PO DAILY #30 cap 09/26/19 11/29/19 Rx coQ10 (ubiquinol) 100 mg PO DAILY 11/29/19 11/29/19 History omega 4-hgf-lnh-fish oil [Fish Oil] 1 cap PO QAM 11/29/19 11/29/19 History vitamin B complex 1 tablet PO DAILY 11/29/19 11/29/19 History nicotine 1 patch TRANSDERMAL QAM PRN #7 each 12/04/19 Rx sucralfate 1 gram tablet 1 gm PO TID #90 tablet 12/18/19 12/18/19 Rx lorazepam 0.5 mg tablet 0.25 mg PO BID PRN #30 tablet 12/20/19 Rx amlodipine 10 mg tablet 10 mg PO DAILY #90 tablet 01/13/20 Rx benazepril 40 mg tablet 40 mg PO DAILY #90 tablet 01/13/20 Rx fenofibrate 160 mg tablet 160 mg PO DAILY #90 tablet 01/13/20 Rx bctnqh-aatwjywf-eavhuvz 1 cap PO TID #270 cap 01/13/20 Rx 25,000-79,000-105,000 unit capsule,delayed rel pantoprazole 40 mg tablet,delayed 40 mg PO Q12HR 30 Days #180 tablet 01/13/20 Rx release quetiapine 25 mg tablet 25 mg PO ONCE #90 tablet 01/13/20 Rx amlodipine 01/31/20 History Laboratory Tests 01/30/20 01/30/20 01/31/20 20:37 20:37 01:09 WBC 11.2 K/mm3 H K/mm3 (4.5-10.0) RBC 3.83 M/mm3 L M/mm3 (4.6-6.20) Hgb 11.2 g/dL L g/dL (14.0-18.0) Hct 35.3 % L % (42.0-52.0) MCV 92.2 fl fl (80-100) MCH 29.2 pg pg (26-34) MCHC 31.7 g/dl L g/dl (32-36) RDW 15.0 % H % (11.5-14.5) Plt Count 344 k/mm3 k/mm3 (150-375) MPV 10.4 fl fl (7.4-10.4) Immature Gran % (Auto) 0.4 % % (0-0.5) Neut % (Auto) 86.7 % H % (45.5-73.1) Lymph % (Auto) 8.0 % L % (18.3-44.2) [place] % (Auto) 3.3 % % (2.6-8.5) Eos % (Auto) 1.2 % % (0-4.4) Baso % (Auto) 0.4 % % (0.2-1.2) Lymph # (Auto) 0.89 K/mm3 L K/mm3 (0.9-3.2) [place] # (Auto) 0.4 K/mm3 K/mm3 (0.1-0.6) Eos # (Auto) 0.1 K/mm3 K/mm3 (0-0.3) Baso # (Auto) 0.1 K/mm3 K/mm3 (0.0-0.1) Abs Immat Gran (auto) 0.04 K/mm3 H K/mm3 (0.00-0.031) Absolute Neuts (auto) 9.7 K/mm3 H K/mm3 (1.3-6.7) Absolute Nucleated RBC 0.0 K/mm3 K/mm3 (0.0-0.012) Nucleated RBC % 0.0 % % (0.0-0.2) Sodium 142 mmol/L mmol/L (137-145) Potassium 3.8 mmol/L mmol/L (3.4-5.0) Chloride 112 mmol/L H mmol/L (98-107) Carbon Dioxide 23 mmol/L mmol/L (22-30) BUN 34 mg/dL H D mg/dL (9-20) Creatinine 2.40 mg/dL H mg/dL (0.7-1.3) Estim Creat Clear Calc 15 ml/min ml/min Estimated GFR 26 L (59 - ) Glucose 170 mg/dL H mg/dL (75-110) Calcium 9.3 mg/dL mg/dL (8.4-10.2) Total Bilirubin 0.5 mg/dL mg/dL (0.2-1.3) AST 20 U/L U/L (17-59) ALT 18 U/L U/L (4-50) Alkaline Phosphatase 99 U/L U/L (38-126) Total Protein 7.0 g/dL g/dL (6.3-8.2) Albumin 3.3 g/dL L g/dL (3.5-5.1) Lipase 38 U/L U/L (23-300) Urine Color Yellow (Yellow) Urine Appearance
--- NOTE | 2020-01-31 08:41 | WPDGICN ---
Assessment and Plan Assessment and plan (1) Abdominal pain: Code(s): R10.9 - Unspecified abdominal pain Status: Acute Assessment and Plan: Abdominal pain was severe yesterday but is improved today likely related to recent ulcer disease. Plan is for proton pump inhibitor therapy an EGD will be performed. 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 There is concern of residual tumor in this area. Plan is for repeat EGD. (3) Dementia: Qualifiers: Dementia type: unspecified type Dementia behavioral disturbance: without behavioral disturbance Qualified Code(s): F03.90 - Unspecified dementia without behavioral disturbance Code(s): F03.90 - Unspecified dementia without behavioral disturbance Status: Chronic (4) IPMN (intraductal papillary mucinous neoplasm): Code(s): D49.0 - Neoplasm of unspecified behavior of digestive system Status: Acute Assessment and Plan: IPMN was resected by Whipple's resection. It is uncertain if there was recurrence. Plan is for EGD to assess surgical area this area was noted be thickened on recent CT scan. 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 Area of thickening on CT scan is in this margin will be evaluated by EGD. Pancreatic insufficiency may be secondary to this. Pancreatic enzyme replacement may be of some benefit. GI Consult Note Consult date/time: 01/31/20 08:41 HPI: Isiah Tobar is a 84 year old male seen in evaluation at the request of the hospitalist service. Patient reports rather severe abdominal pain yesterday prompting him to go to the emergency room and subsequently admitted to the hospital. This morning he states pain has improved. Patient's Past history is significant for Whipple surgery resecting the head of his pancreas. He has a history of an IPMN. He was hospitalized in November several months ago with multiple crated ulcers in the jejunum. At that time histology was benign. Since that time he has been maintained on proton pump inhibitor in addition to Carafate. Additionally a CT scan of the abdomen was performed last evening revealed swelling in the area of the gastrojejunal anastomosis but also question of pericolonic inflammation. Review of Systems Review of Systems: All systems reviewed & are unremarkable except as noted in HPI and below PMFSH Past Medical History Medical History IPMN (intraductal papillary mucinous neoplasm) UTI due to Klebsiella species Surgical History Surgical History History of cholecystectomy History of pancreatectomy History of resection of stomach S/P small bowel resection Family History Family History Mother Patient's mother is Family history of cardiovascular disease Family history of malignant neoplasm Sibling Patient's sister is Patient's brother is Family history of multiple sclerosis Family history of Alzheimer's disease Family history of pancreatic cancer Family history of lung cancer Social History Social History Social History: Patient currently smokes 6-8 cigarettes a day. 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
--- NOTE | 2020-01-31 08:52 | PC.NURSE ---
Call to patient's , Ana, to obtain consent for EGD and to review home medications. Home med list updated per information provided during phone call.
--- NOTE | 2020-01-31 09:01 | PC.NURSE ---
Patient to GI lab per hazel. Report to FADUMO Randhawa.
[2020-01-31] MEDS: LACTATED RINGERS 1,000 ML 150 ML IV CONT (09:30)
--- NOTE | 2020-01-31 09:33 | SUR.PREOP ---
0902 Up in patient's room, patient is alert and oriented times 3, questions voiced from patient regarding procedure this morning. Patient transferred to Endoscopy department via stretcher. Patient's wedding ring left in his room by the hospital telephone at the bedside. Notified his nurse Sun regarding his wedding ring. 0940 Patient's glasses, upper denture and lower partials removed and kept in his Endoscopy room during procedure. Instructed patient that we would give them back to him upon his return to the room after the procedure was completed.
--- NOTE | 2020-01-31 10:59 | SUR.PHASEII ---
1058 PATIENT AWAKE, GLASSES APPLIED AND DENTURES AND PARTIAL PLATE PUT BACK IN.
--- NOTE | 2020-01-31 11:19 | PC.NURSE ---
Patient returned from GI lab per kaleigher. Report received from FADUMO Randhawa.
[2020-01-31] MEDS: HYDROMORPHONE HCL 1 MG/ML INJ 0.5 MG IV PUSH (14:47)
--- NOTE | 2020-01-31 16:05 | PM.IMPN ---
Progress Note: A&P Assessment and Plan (1) Abdominal pain: Code(s): R10.9 - Unspecified abdominal pain Status: Acute Assessment and Plan: Imaging today showing signs of intraperitoneal free air; possible perforation. EGD per Dr. Abel today; shows acute gastrojejunal cratered ulcers; no signs of bleeding. GI following and appreciate recommendations General Surgery consulted by GI for possible perforation Continue pain control as needed Limit narcotics if possible (2) Acute on chronic renal failure: Qualifiers: Acute renal failure type: unspecified Chronic kidney disease stage: stage 3 (moderate) Qualified Code(s): N17.9 - Acute kidney failure, unspecified; N18.3 - Chronic kidney disease, stage 3 (moderate) Code(s): N17.9 - Acute kidney failure, unspecified; N18.9 - Chronic kidney disease, unspecified Status: Acute Assessment and Plan: Cr 2.00 this afternoon; improved. Continue IV fluid challenge overnight. Monitor renal function. Avoid nephrotoxic agents, renally dose medications. 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 Appreciate GI recommendations. (4) Dementia: Qualifiers: Dementia type: unspecified type Dementia behavioral disturbance: without behavioral disturbance Qualified Code(s): F03.90 - Unspecified dementia without behavioral disturbance Code(s): F03.90 - Unspecified dementia without behavioral disturbance Status: Chronic Assessment and Plan: Continue Seroquel when off NPO status (5) Essential hypertension: Code(s): I10 - Essential (primary) hypertension Status: Acute Assessment and Plan: Stable this morning, however 170s sys this afternoon, likely secondary to pain Monitor blood pressure. Resume home antihypertensive medications once off NPO status PRN hydralazine with parameters (6) Gastroesophageal reflux disease: Code(s): K21.9 - Gastro-esophageal reflux disease without esophagitis Status: Chronic Assessment and Plan: Continue PPI therapy. 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 Patient is in significant discomfort during my visit this afternoon, screaming out multiple times in pain. He is A&O to himself, birthdate, place, and year; does not know the president. Patient states his pain is upper abdomen and does not radiate. Describes it as sharp. Position does not make it better or worse. Otherwise, patient has no other complaints at this moment. Denies f/c/s, headaches, cp/palpitations, sob/cough, n/v/d/c, dysuria, hematuria, cloudy urine, calf pain/swelling. Review of Systems Review of Systems: All systems reviewed & are unremarkable except as noted in HPI and below Exam Narrative: Exam Narrative: Patient initially sitting upright in bed at time of visit; uncomfortable, screaming out in pain occasionally, holding abdomen Const: General: alert, awake, acute distress moderate, anxious and uncomfortable Nutritional Appearance: well nourished Orientation/consciousness: patient oriented x3 HENMT: Head: normocephalic and atraumatic
[2020-01-31 16:18] LABS: Hematocrit 38.1 % (42.0-52.0); Hemoglobin 11.7 g/dL (14.0-18.0); Mean Corpuscular HGB Conc 30.7 g/dl (32-36); Mean Corpuscular Hemoglobin 28.6 pg (26-34); Mean Corpuscular Volume 93.2 fl (80-100); Mean Platelet Volume 10.8 fl (7.4-10.4); Platelet Count Result 336 k/mm3 (150-375); Red Blood Count 4.09 M/mm3 (4.6-6.20); Red Cell Distribution Width 15.2 % (11.5-14.5); White Blood Count 9.4 K/mm3 (4.5-10.0)
[2020-01-31 16:31] LABS: Magnesium 1.8 mg/dL (1.6-2.3)
[2020-01-31 16:32] LABS: Alanine Aminotransferase 16 U/L (4-50); Alkaline Phosphatase 86 U/L (38-126); Aspartate Amino Transferase 25 U/L (17-59); Bilirubin,Total 0.7 mg/dL (0.2-1.3); Blood Urea Nitrogen 35 mg/dL (9-20); Calcium 9.2 mg/dL (8.4-10.2); Carbon Dioxide 17 mmol/L (22-30); Chloride 119 mmol/L (98-107); Estimated CRCL calculation 17 ml/min; Estimated Glomerular Filt Rate 32; Glucose 126 mg/dL (75-110); Potassium 3.9 mmol/L (3.4-5.0); Sodium 142 mmol/L (137-145)
--- NOTE | 2020-01-31 16:38 | PM.CNGS ---
Assessment and Plan Assessment and plan (1) Free intraperitoneal air: Code(s): K66.8 - Other specified disorders of peritoneum Status: Acute Assessment and Plan: this is probably a micro perforation associated with EGD and biopsy of marginal ulcers. The insufflation associated with EGD can create a large amount of free intraperitoneal air even though the area of perforation is quite small. The patient is a very poor surgical candidate and we will try to treat this medically. It is usually successful in this setting. Will have NG tube placed, start Zosyn antibiotics and continue IV Protonix q.12 hours. I discussed with Dr. Abel. 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 Suggests patient is not taking his Protonix as he was instructed after his visit in November. Biopsies were negative in November. Re-biopsy was done today. Possible recurrent tumor is a consideration although the diagnosis of IPMN as the indication for pancreatic resection would make this less likely to be recurrent neoplasm. (3) Acute on chronic renal failure: Qualifiers: Acute renal failure type: unspecified Chronic kidney disease stage: stage 3 (moderate) Qualified Code(s): N17.9 - Acute kidney failure, unspecified; N18.3 - Chronic kidney disease, stage 3 (moderate) Code(s): N17.9 - Acute kidney failure, unspecified; N18.9 - Chronic kidney disease, unspecified Status: Acute Assessment and Plan: Creatinine clearance currently only 15. Creatinine was elevated in November but responded to fluids which he is receiving again now. 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 Reoperation would be very difficult in this setting. (5) Dementia: Qualifiers: Dementia type: unspecified type Dementia behavioral disturbance: without behavioral disturbance Qualified Code(s): F03.90 - Unspecified dementia without behavioral disturbance Code(s): F03.90 - Unspecified dementia without behavioral disturbance Status: Chronic Assessment and Plan: Also makes patient a poor surgical candidate. History of Present Illness Consult details Consult date: 01/31/20 Reason for consult: abdominal pain Narrative: the patient is an 84-year-old gentleman who in 2016 had a pancreaticoduodenectomy or Whipple procedure. He was admitted in November with abdominal pain and weight loss. EGD at that time showed marginal ulcers of the proximal E Safia limb. He was discharged on b.i.d. Protonix. biopsies of these ulcers at that time were negative for recurrent cancer. He had recurrent abdominal pain yesterday and came back to the emergency room.. CT scan showed some inflammation in the area of the splenic flexure of the colon but also of the efferent limb. His pain improved with some proton pump inhibitors IV and some fluids. He was seen in consultation by this morning and taken for EGD. EGD in biopsies were done. The finding showed both afferent and efferent limb ulceration. Following the procedure, the patient was noted to have increased abdominal pain. An obstructive series was done which showed free intraperitoneal air. I was asked to see the patient regarding possible bowel perforation. Besides having the previous Whipple procedure, he is known to have dementia, acute on chronic renal failure and hypertension. Review of Systems Review of Systems: All systems reviewed & are unremarkable except as noted in HPI and below [facility] Past Medical History Medical History (Updated 01/31/20 @ 16:59 by Bacilio Machuca MD) Chronic renal failure Dementia Essential hypertension Gastroesophageal
[2020-01-31 16:40] LABS: Band Neutrophils Percent 16 % (0-6); Lymphocytes Absolute Manual 0.37 K/mm3 (1.1-4.5); Monocytes Absolute Manual 0.09 K/mm3 (0.1-0.90); Monocytes Percent Manual 1 % (3-9); Neutrophils Absolute Manual 8.93 K/mm3 (1.3-6.7); Neutrophils Percent Manual 79 % (46-73); Platelet Estimate Adequate (Adequate); Total Cells Counted 100
[2020-01-31 16:41] LABS: Anisocytosis 2+ (NORMAL)
--- NOTE | 2020-01-31 20:37 | PC.NURSE ---
PT COMPLAINT OF GENERALIZED PAIN. IV ACETAMINOPHEN ON ORDER PHARMACY NOTIFIED ABOUT NEED.
[2020-01-31] MEDS: hydrALAZINE HCL 20 MG/ML VIAL 10 MG IV PUSH (20:46)
[2020-01-31] MEDS: PANTOPRAZOLE SODIUM IV 40 MG VIAL IV PUSH (20:46)
--- NOTE | 2020-01-31 21:50 | PC.NURSE ---
[facility] CALLED AGAIN REGARDING NEED FOR IV ACETAMINOPHEN. STATES WILL BE WORKING ON GETTING THAT RIGHT UP.
[2020-01-31] MEDS: LORAZEPAM INJ 2 MG/ML VIAL 0.5 MG IV PUSH (22:05)
[2020-02-01 01:57] VITALS: BP 124/65; PULSE 109; RESP 18; TEMP 36.3
[2020-02-01] MEDS: HYDROMORPHONE HCL 1 MG/ML INJ 0.5 MG IV PUSH (02:19)
[2020-02-01] MEDS: SODIUM CHLORIDE 0.9% IV 1,000 ML 125 ML IV CONT ×2 (05:14→15:45)
[2020-02-01 06:00] VITALS: BP 113/52; PULSE 98; RESP 18; TEMP 36.2; O2SAT 96
--- NOTE | 2020-02-01 07:40 | WPDGIPROGNO ---
Progress Note: A&P Additional Plan Patient restless and confused throughout the night this morning. Unable to hold a conversation this morning. Physical exam reveals patient to be afebrile. Very restless. Abdomen to be soft. Difficult to appreciate bowel sounds. Modest diffuse tenderness noted. No organomegaly evident. Labs reveal KUB with free air. Morning labs pending. Impression 1. Jejunal ulcers. Noted at margin of previous resection. 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 Persistent ulcers raise question of residual IPMN. Histology pending. Continue IV Protonix. 2. Free air. Perforation at the ulcer is suspected. Dr. Machuca now following from surgical perspective. Patient currently with NG tube decompression IV antibiotics and bowel rest. Surgical exploration deferred at present. Will continue to have surgery follow patient. 3. Dementia. Patient very restless during the night history is unable to be obtained. May be restless because of free air. Subjective Date/time seen: 02/01/20 07:40 Objective Data Vital Signs Vital Signs: Vital Signs - 24 hr 01/31/20 08:41 01/31/20 09:23 01/31/20 10:43 Temperature 36.1 C L 36.4 C Pulse Rate 50 L 49 L 70 Respiratory Rate 14 16 28 H Blood Pressure 105/54 L 111/53 L 139/69 Pulse Oximetry 100 100 100 01/31/20 10:50 01/31/20 11:00 01/31/20 11:30 Temperature 36.2 C L Pulse Rate 59 L 69 66 Respiratory Rate 18 15 16 Blood Pressure 121/63 114/68 137/67 Pulse Oximetry 100 100 98 01/31/20 11:45 01/31/20 12:15 01/31/20 14:00 Temperature 36.2 C L 36.0 C L 36.2 C L Pulse Rate 84 82 99 Respiratory Rate 16 16 18 Blood Pressure 147/53 H 112/70 173/91 H Pulse Oximetry 98 96 95 01/31/20 20:20 01/31/20 22:00 02/01/20 01:57 Temperature 36.7 C 36.3 C L Pulse Rate 114 H 109 H Respiratory Rate 21 H 18 Blood Pressure 144/81 H 124/65 Pulse Oximetry 100 100 02/01/20 06:00 Temperature 36.2 C L Pulse Rate 98 Respiratory Rate 18 Blood Pressure 113/52 L Pulse Oximetry 96 Intake/Output Intake/Output: Intake & Output 01/29/20 01/30/20 01/31/20 02/01/20 23:59 23:59 23:59 23:59 Intake Total 1000 1430 1000 Output Total 25 430 Balance 1000 1405 570 Meds/Results Medications: Active Medications Generic Name Dose Route Start Last Admin Trade Name Freq PRN Reason Stop Dose Admin Amlodipine Besylate 10 mg 01/31/20 21:00 01/31/20 20:48 Norvasc PO Not Given HS ESTHELA Lipase/Protease/Amylase 2 cap 01/31/20 12:00 01/31/20 16:[address] 12,000 Units Capsule PO Not Given TIDWM ESTHELA Fenofibrate 160 mg 02/01/20 09:00 Fenofibrate PO DAILY ESTHELA Hydralazine HCl 10 mg 01/31/20 20:30 Apresoline Hcl Inj IV PUSH Q8H PRN Blood Pressure - High>160/80 Sodium Chloride 1,000 mls @ 125 mls/hr 01/31/20 00:10 02/01/20 05:14 Normal Saline Iv IV CONT 125 mls/hr .Q8H ESTHELA Administration Piperacillin Sod/Tazobactam Sod 2.25 gm in 50 mls @ 100 mls/hr 01/31/20 15:25 02/01/20 05:15 Zosyn 2.25 Gm/D5w 50 Ml IVPB 100 mls/hr Q8HR ESTHELA Administration Lorazepam 0.5 mg 01/31/20 21:40 01/31/20 22:05 Ativan Inj IV PUSH 0.5 mg Q4H PRN Administration Anxiety Ondansetron HCl 4 mg 01/31/20 00:08 Zofran Inj IV PUSH Q4H PRN Nausea Pantoprazole Sodium 40 mg 01/31/20 21:00 01/31/20 20:46 Protonix Iv IV PUSH 40 mg Q12HR ESTHELA Administration Quetiapine Fumarate 25 mg 01/31/20 21:00 01/31/20 20:47 Seroquel PO Not Given HS ESTHELA Sucralfate 1 gm 01/31/20 13:00 01/31/20 16:42 Carafate PO Not Given TID ESTHELA Tamsulosin HCl 0.4 mg 02/01/20 09:00 Flomax PO DAILY ESTHELA Vitamin B Complex 1 cap 02/01/20 09:00 Vitamin B Complex PO DAILY [facility] Radiology Results: ITS Impressions Abdomen/Pelvis CT 01/30/20 21:17 IMPRESSION: 1. Mild thickening of the colon at the splenic flexure with pericolonic inflamm
--- NOTE | 2020-02-01 08:20 | PC.NURSE ---
0820- Patient to XR per bed.
[2020-02-01] MEDS: PANTOPRAZOLE SODIUM IV 40 MG VIAL IV PUSH ×2 (08:45→20:49)
[2020-02-01 10:59] LABS: Basophils Absolute Auto 0.1 K/mm3 (0.0-0.1); Basophils Percent Auto 0.5 % (0.2-1.2); Hematocrit 37.4 % (42.0-52.0); Hemoglobin 11.6 g/dL (14.0-18.0); Immature Granulocyte Absolute 0.04 K/mm3 (0.00-0.031); Immature Granulocyte Percent A 0.3 % (0-0.5); Lymphocytes Absolute Auto 0.49 K/mm3 (0.9-3.2); Mean Corpuscular Hemoglobin 28.6 pg (26-34); Mean Corpuscular Volume 92.3 fl (80-100); Mean Platelet Volume 11.1 fl (7.4-10.4); Monocytes Absolute Auto 0.3 K/mm3 (0.1-0.6); Monocytes Percent Auto 2.8 % (2.6-8.5); Neutrophils Absolute Auto 11.3 K/mm3 (1.3-6.7); Neutrophils Percent Auto 92.4 % (45.5-73.1); Platelet Count Result 343 k/mm3 (150-375); Red Blood Count 4.05 M/mm3 (4.6-6.20); Red Cell Distribution Width 15.3 % (11.5-14.5); White Blood Count 12.2 K/mm3 (4.5-10.0)
[2020-02-01 11:16] LABS: Alanine Aminotransferase 15 U/L (4-50); Albumin Level 2.5 g/dL (3.5-5.1); Alkaline Phosphatase 67 U/L (38-126); Aspartate Amino Transferase 19 U/L (17-59); Bilirubin,Total 0.5 mg/dL (0.2-1.3); Blood Urea Nitrogen 36 mg/dL (9-20); Calcium 8.4 mg/dL (8.4-10.2); Carbon Dioxide 13 mmol/L (22-30); Chloride 123 mmol/L (98-107); Estimated CRCL calculation 16 ml/min; Estimated Glomerular Filt Rate 30; Glucose 88 mg/dL (75-110); Magnesium 1.8 mg/dL (1.6-2.3); Potassium 3.9 mmol/L (3.4-5.0); Sodium 144 mmol/L (137-145)
--- NOTE | 2020-02-01 11:34 | PM.PNGS ---
Progress Note: A&P Assessment and Plan (1) Free intraperitoneal air: Code(s): K66.8 - Other specified disorders of peritoneum Status: Acute Assessment and Plan: No worse today, possibly a bit better. Less tender, same or less loculated free air on plain films. Cont NPO, NG suction, IV Zosyn. Follow exam, labs, plain films. Patient very poor surgical candidate, not sure I would proceed with surgery even if he worsens. Previous pancreaticoduodenectomy and comorbidities make survival from surgery unlikely. 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 Patient generally resting comfortably but when moved or checked he becomes restless. Discussed with nursing), no bowel movement and afebrile Review of Systems Review of Systems: ROS unobtainable: Yes unobtainable due to mental status Exam Const: General: comfortable, no acute distress, awake and confusion Nutritional Appearance: thin Orientation/consciousness: confusion Resp: Effort & Inspection: normal respiratory effort Auscultation: clear to auscultation bilaterally Cardio: Rate: regular rate Rhythm: regular rhythm GI: Inspection: non-distended GI Palp: Yes Soft to palpation, Yes Tenderness to palpation present (GI) ( Less tender than yesterday), No Guarding due to palpation present (GI) and No Rebound tenderness present Auscultation: absent bowel sounds Extrem: General: no calf tenderness and no edema Psych: Speech and movement: No Psychomotor agitation in speech present or Restless speech present Insight: Poor insight present (Psych) Judgement: Poor judgement present (Psych) Objective Data Vital Signs Vital Signs: Vital Signs - 24 hr 01/31/20 11:45 01/31/20 12:15 01/31/20 14:00 Temperature 36.2 C L 36.0 C L 36.2 C L Pulse Rate 84 82 99 Respiratory Rate 16 16 18 Blood Pressure 147/53 H 112/70 173/91 H Pulse Oximetry 98 96 95 01/31/20 20:20 01/31/20 22:00 02/01/20 01:57 Temperature 36.7 C 36.3 C L Pulse Rate 114 H 109 H Respiratory Rate 21 H 18 Blood Pressure 144/81 H 124/65 Pulse Oximetry 100 100 02/01/20 06:00 Temperature 36.2 C L Pulse Rate 98 Respiratory Rate 18 Blood Pressure 113/52 L Pulse Oximetry 96 Intake/Output Intake/Output: Intake & Output 01/29/20 01/30/20 01/31/20 02/01/20 23:59 23:59 23:59 23:59 Intake Total 1000 1430 1050 Output Total 25 430 Balance 1000 1405 620 Meds/Results Medications: Active Medications Generic Name Dose Route Start Last Admin Trade Name Freq PRN Reason Stop Dose Admin Amlodipine Besylate 10 mg 01/31/20 21:00 01/31/20 20:48 Norvasc PO Not Given HS ESTHELA Lipase/Protease/Amylase 2 cap 01/31/20 12:00 02/01/20 07:[address] 12,000 Units Capsule PO Not Given TIDWM ESTHELA Fenofibrate 160 mg 02/01/20 09:00 Fenofibrate PO DAILY ESTHELA Hydralazine HCl 10 mg 01/31/20 20:30 Apresoline Hcl Inj IV PUSH Q8H PRN Blood Pressure - High>160/80 Sodium Chloride 1,000 mls @ 125 mls/hr 01/31/20 00:10 02/01/20 05:14 Normal Saline Iv IV CONT 125 mls/hr .Q8H ESTHELA Administration Piperacillin Sod/Tazobactam Sod 2.25 gm in 50 mls @ 100 mls/hr 01/31/20 15:25 02/01/20 07:00 Zosyn 2.25 Gm/D5w 50 Ml IVPB Infused Q8HR ESTHELA Infusion Acetaminophen
--- NOTE | 2020-02-01 13:16 | PM.IMPN ---
Progress Note: A&P Assessment and Plan (1) Abdominal pain: Code(s): R10.9 - Unspecified abdominal pain Status: Acute Assessment and Plan: Admit for observation. Likely secondary to ongoing known ulcer disease. NPO overnight. Continue pain control as needed. GI Consult in am. Currently the patient is asymptomtic. (2) Acute on chronic renal failure: Qualifiers: Acute renal failure type: unspecified Chronic kidney disease stage: stage 3 (moderate) Qualified Code(s): N17.9 - Acute kidney failure, unspecified; N18.3 - Chronic kidney disease, stage 3 (moderate) Code(s): N17.9 - Acute kidney failure, unspecified; N18.9 - Chronic kidney disease, unspecified Status: Acute Assessment and Plan: Continue IV fluid challenge overnight. Monitor renal function. Avoid nephrotoxic agents, renally dose medications. (3) Jejunal ulcer: Code(s): K28.9 - Gastrojejunal ulcer, unspecified as acute or chronic, without hemorrhage or perforation Status: Chronic Assessment and Plan: continue PPI therapy. Appreciate GI recommendations. (4) Dementia: Qualifiers: Dementia type: unspecified type Dementia behavioral disturbance: without behavioral disturbance Qualified Code(s): F03.90 - Unspecified dementia without behavioral disturbance Code(s): F03.90 - Unspecified dementia without behavioral disturbance Status: Chronic Assessment and Plan: Continue Seroquel when appropriate. (5) Benign essential HTN: Code(s): I10 - Essential (primary) hypertension Status: Chronic Assessment and Plan: Stable. Monitor blood pressure. Resume home antihypertensive medications. (6) Gastroesophageal reflux disease: Code(s): K21.9 - Gastro-esophageal reflux disease without esophagitis Status: Chronic Assessment and Plan: Continue PPI therapy. 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 Patient is in significant discomfort during my visit this afternoon, screaming out multiple times in pain. He is A&O to himself, birthdate, place, and year; does not know the president. Patient states his pain is upper abdomen and does not radiate. Describes it as sharp. Position does not make it better or worse. Otherwise, patient has no other complaints at this moment. Denies f/c/s, headaches, cp/palpitations, sob/cough, n/v/d/c, dysuria, hematuria, cloudy urine, calf pain/swelling. Review of Systems Review of Systems: All systems reviewed & are unremarkable except as noted in HPI and below Exam Narrative: Exam Narrative: Patient initially sitting upright in bed at time of visit; uncomfortable, screaming out in pain occasionally, holding abdomen Const: General: alert, awake, acute distress moderate, anxious and uncomfortable Nutritional Appearance: well nourished Orientation/consciousness: patient oriented x3 HENMT: Head: normocephalic and atraumatic General nose exam: Normal external nose present Face and sinus: face symmetric Mouth: Yes moist mucous membranes Teeth and gingiva: poor dentition Eyes: General: appearance normal, both eyes and all related structures Pupils: Equal, round and reactive pupils present EOM: EOMs intact bilaterally Neck: Neck: trachea midline and supple Thyroid: thyroid normal Lymphatic: lymphadenopathy not noted Resp: Effort & Inspection: normal respiratory effort Auscultation: clear to auscultation bilaterally Cardio: Rate: regular rate Rhythm: regular rhythm Heart sounds: no murmurs GI: Inspection: non-distended Auscultation: normal bowel sounds and normoactive bowel sounds Skin: General skin exam: normal color and no rashes or lesions noted Neuro: General: patient oriented x3, moves all ext
[2020-02-01] MEDS: LORAZEPAM INJ 2 MG/ML VIAL 0.5 MG IV PUSH ×2 (13:17→20:48)
--- NOTE | 2020-02-01 13:33 | PM.IMPN ---
Progress Note: A&P Assessment and Plan (1) Free intraperitoneal air: Code(s): K66.8 - Other specified disorders of peritoneum Status: Acute Assessment and Plan: Imaging showing signs of persistent intraperitoneal free air today; possible perforation. EGD per Dr. Abel yesterday; shows acute gastrojejunal cratered ulcers; no signs of bleeding. Patient appears to be more comfortable today, although confused GI following and appreciate recommendations General Surgery consulted by GI for possible perforation; appreciate recommendations Now on Zosyn IV and NGT per Surgery. NPO status for now Continue pain control as needed Limit narcotics if possible due to dementia (2) Acute on chronic renal failure: Qualifiers: Acute renal failure type: unspecified Chronic kidney disease stage: stage 3 (moderate) Qualified Code(s): N17.9 - Acute kidney failure, unspecified; N18.3 - Chronic kidney disease, stage 3 (moderate) Code(s): N17.9 - Acute kidney failure, unspecified; N18.9 - Chronic kidney disease, unspecified Status: Acute Assessment and Plan: Cr 2.10 this afternoon; stable Continue IV fluid challenge overnight. Monitor renal function. Avoid nephrotoxic agents, renally dose medications. (3) Jejunal ulcer: Code(s): K28.9 - Gastrojejunal ulcer, unspecified as acute or chronic, without hemorrhage or perforation Status: Chronic Assessment and Plan: Confirmed on EGD again yesterday Continue PPI therapy, carafate once off NPO status Appreciate GI recommendations. (4) Dementia: Qualifiers: Dementia type: unspecified type Dementia behavioral disturbance: without behavioral disturbance Qualified Code(s): F03.90 - Unspecified dementia without behavioral disturbance Code(s): F03.90 - Unspecified dementia without behavioral disturbance Status: Chronic Assessment and Plan: Continue Seroquel when off NPO status (5) Gastroesophageal reflux disease: Code(s): K21.9 - Gastro-esophageal reflux disease without esophagitis Status: Chronic Assessment and Plan: Continue PPI therapy. (6) Essential hypertension: Code(s): I10 - Essential (primary) hypertension Status: Acute Assessment and Plan: Stable this morning, 110s sys Monitor blood pressure. Resume home antihypertensive medications once off NPO status PRN hydralazine with parameters (7) Urinary retention: Code(s): R33.9 - Retention of urine, unspecified Status: Chronic Assessment and Plan: Continue Tamsulosin when off NPO status (8) ASB (asymptomatic bacteriuria): Code(s): R82.71 - Bacteriuria Status: Acute Assessment and Plan: Urine Culture growing 50-100k of klebsiella oxytoca ESBL. 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 Patient is more confused today, but appears to be in less pain, not expressing much pain. Patient alert but refusing to answer orientation questions/ROS. He does deny any abdominal pain at this moment, but likely unreliable historian due to current mental status. Review of Systems Review of Systems: ROS unobtainable: Yes unobtainable due to mental status Exam Narrative: Exam Narrative: Patient lying supine in bed attempting to climb
[2020-02-01 14:00] VITALS: BP 127/73; PULSE 113; RESP 16; TEMP 36.1; O2SAT 96
--- NOTE | 2020-02-01 16:43 | WPDANESPN ---
Anes - Prog Note Post-Op Date/Time: 02/01/20 16:43 Cardiovascular status: normal Respiratory status: normal Airway patency: baseline Mental status: other (Patient appears to be confused. Spoke with RN, no change during shift of care. ) Post-Op hydration status: normal Vital Signs: Last Vital Signs Temp 36.1 C L 02/01/20 14:00 Pulse 113 H 02/01/20 14:00 Resp 16 02/01/20 14:00 BP 127/73 02/01/20 14:00 Pulse Ox 96 02/01/20 14:00 I/O: Intake & Output 02/01/20 02/01/20 02/01/20 07:59 15:59 23:59 Intake Total 1050 1115 Output Total 430 Balance 620 1115 Laboratory Tests 02/01/20 10:52 02/01/20 10:54 02/01/20 02/01/20 02/01/20 01:50 10:52 10:54 WBC 12.2 H RBC 4.05 L Hgb 11.6 L Hct 37.4 L MCV 92.3 MCH 28.6 MCHC 31.0 L RDW 15.3 H Plt Count 343 MPV 11.1 H Immature Gran % (Auto) 0.3 Neut % (Auto) 92.4 H Lymph % (Auto) 4.0 L Clarke % (Auto) 2.8 Eos % (Auto) 0.0 Baso % (Auto) 0.5 Lymph # (Auto) 0.49 L Clarke # (Auto) 0.3 Eos # (Auto) 0.0 Baso # (Auto) 0.1 Abs Immat Gran (auto) 0.04 H Absolute Neuts (auto) 11.3 H Absolute Nucleated RBC 0.0 Nucleated RBC % 0.0 Sodium 144 Potassium 3.9 Chloride 123 H Carbon Dioxide 13 L BUN 36 H Creatinine 2.10 H Estim Creat Clear Calc 16 Estimated GFR 30 L Glucose 88 Lactic Acid 1.0 Calcium 8.4 Magnesium 1.8 Total Bilirubin 0.5 AST 19 ALT 15 Alkaline Phosphatase 67 Total Protein 5.0 L Albumin 2.5 L Microbiology 01/31/20 01:09 Urine Clean Catch Urine Culture - Preliminary Klebsiella Oxytoca (ESBL) Post-procedural complaints: none Patient Feedback: Patient satisfied with anesthetic care.
[2020-02-01 20:00] VITALS: PULSE 96; RESP 18; O2SAT 99
[2020-02-01 22:00] VITALS: BP 112/57; PULSE 96; RESP 18; TEMP 36; O2SAT 99
[2020-02-02] MEDS: SODIUM CHLORIDE 0.9% IV 1,000 ML 125 ML IV CONT (00:57)
[2020-02-02 05:22] VITALS: BP 113/62; PULSE 92; RESP 18; TEMP 36.6; O2SAT 98
[2020-02-02 06:00] LABS: Hemoglobin 10.6 g/dL (14.0-18.0); Mean Corpuscular HGB Conc 31.2 g/dl (32-36); Mean Corpuscular Hemoglobin 28.8 pg (26-34); Mean Corpuscular Volume 92.4 fl (80-100); Mean Platelet Volume 11.4 fl (7.4-10.4); Platelet Count Result 366 k/mm3 (150-375); Red Blood Count 3.68 M/mm3 (4.6-6.20); Red Cell Distribution Width 15.7 % (11.5-14.5); White Blood Count 11.2 K/mm3 (4.5-10.0)
[2020-02-02 06:24] LABS: Blood Urea Nitrogen 40 mg/dL (9-20); Carbon Dioxide 11 mmol/L (22-30); Chloride 124 mmol/L (98-107); Estimated CRCL calculation 15 ml/min; Estimated Glomerular Filt Rate 29; Glucose 94 mg/dL (75-110); Potassium 3.6 mmol/L (3.4-5.0); Sodium 144 mmol/L (137-145)
--- NOTE | 2020-02-02 08:06 | WPDGIPROGNO ---
Progress Note: A&P Additional Plan Patient remains confused. Some periods of agitation described. He is unable to give me any history today. On physical exam he is somnolent. Abdomen is soft. Bowel sounds are noted. He has diffuse mild tenderness. Labs reveal WBC 11.2, hemoglobin 10.6. Impression 1. Anastomotic ulcer disease. He has poorly hearing healing ulcers in the post anastomotic jejunum status post previous Whipple's resection pancreatic head mass. Histology of ulcer pending. Consideration that IPMN tumor may be recurrent in this area. 2. Free air on KUB suggesting perforation of viscus. Perforated ulcer is suspected. Surgery following. Patient now on bowel rest with NG tube decompression broad-spectrum antibiotic coverage. Proton pump inhibitor therapy continues. 3. Dementia. Plan to continue supportive care. Appreciate surgical follow-up. Patient high risk surgical candidate. Subjective Date/time seen: 02/02/20 08:06 Objective Data Vital Signs Vital Signs: Vital Signs - 24 hr 02/01/20 14:00 02/01/20 20:00 02/01/20 22:00 Temperature 36.1 C L 36.0 C L Pulse Rate 113 H 96 96 Respiratory Rate 16 18 18 Blood Pressure 127/73 112/57 L Pulse Oximetry 96 99 99 02/02/20 05:22 Temperature 36.6 C Pulse Rate 92 Respiratory Rate 18 Blood Pressure 113/62 Pulse Oximetry 98 Intake/Output Intake/Output: Intake & Output 01/30/20 01/31/20 02/01/20 02/02/20 23:59 23:59 23:59 23:59 Intake Total 1000 1430 3315 150 Output Total 25 480 Balance 1000 1405 2835 150 Meds/Results Medications: Active Medications Generic Name Dose Route Start Last Admin Trade Name Freq PRN Reason Stop Dose Admin Amlodipine Besylate 10 mg 01/31/20 21:00 01/31/20 20:48 Norvasc PO Not Given HS [facility] Lipase/Protease/Amylase 2 cap 01/31/20 12:00 02/01/20 17:27 Sushila Fernandez 12,000 Units Capsule PO Not Given TIDWM [facility] Enoxaparin Sodium 30 mg 02/02/20 09:00 Lovenox SUB-Q DAILY [facility] Fenofibrate 160 mg 02/01/20 09:00 Fenofibrate PO DAILY [facility] Fentanyl Citrate 12.5 mcg 02/01/20 12:08 02/02/20 05:20 Sublimaze IV PUSH 12.5 mcg Q2H PRN Administration Pain Rated 6 or Greater Hydralazine HCl 10 mg 01/31/20 20:30 Apresoline Hcl Inj IV PUSH Q8H PRN Blood Pressure - High>160/80 Piperacillin Sod/Tazobactam Sod 2.25 gm in 50 mls @ 100 mls/hr 01/31/20 15:25 02/02/20 05:46 Zosyn 2.25 Gm/D5w 50 Ml IVPB Infused Q8HR [facility] Infusion Acetaminophen 1,000 mg in 100 mls @ 400 mls/hr 02/01/20 18:00 02/02/20 01:15 Ofirmev 1,000 Mg Ivpb IVPB 02/02/20 17:01 Infused Q6HR PRN Infusion Pain Rated 5 or Less Dextrose 1,000 mls @ 100 mls/hr 02/02/20 07:50 Dextrose 5% 1,000 Ml IV CONT .Q10H [facility] Potassium Chloride 100 mls @ 50 mls/hr 02/02/20 08:15 Potassium Chloride 20 Meq/Sw 100 Ml IVPB 02/02/20 10:14 ONCE ONE Lorazepam 0.5 mg 01/31/20 21:40 02/01/20 20:48 Ativan Inj IV PUSH 0.5 mg Q4H PRN Administration Anxiety Ondansetron HCl 4 mg 01/31/20 00:08 Zofran Inj IV PUSH Q4H PRN Nausea Pantoprazole Sodium 40 mg 01/31/20 21:00 02/01/20 20:49 Protonix Iv IV PUSH 40 mg Q12HR [facility] Administration Quetiapine Fumarate 25 mg 01/31/20 21:00 02/01/20 20:34 Seroquel PO Not Given HS [facility] Radiology Results: ITS Impressions Abdomen/Pelvis CT 01/30/20 21:17 IMPRESSION: 1. Mild thickening of the colon at the splenic flexure with pericolonic inflammation. There is adjacent wall thickening and surrounding inflammatory change of the Nik limb immediately distal to the gastrojejunal anastomosis. These findings are most likely infectious, inflammatory or malignant. No significant change dating back to 11/30/2019. Abdomen X-Ray 02/02/20 07:32 IMPRESSION: 1. Dilated small bowel, likely adynamic ileus. 2. Free intraperitoneal gas again seen, consistent with perforated viscus.
[2020-02-02] MEDS: ENOXAPARIN 30 MG/0.3 ML SYRINGE SUB-Q (08:12)
[2020-02-02] MEDS: PANTOPRAZOLE SODIUM IV 40 MG VIAL IV PUSH ×2 (08:13→20:02)
[2020-02-02] MEDS: KCL 20 MEQ/SW 100 ML 100 ML 50 MEQ IVPB (08:20)
[2020-02-02] MEDS: DEXTROSE 5% 1,000 ML 1,000 ML 100 ML IV CONT ×2 (08:28→23:37)
--- NOTE | 2020-02-02 09:33 | PM.PNGS ---
Progress Note: A&P Assessment and Plan (1) Free intraperitoneal air: Code(s): K66.8 - Other specified disorders of peritoneum Status: Acute Assessment and Plan: not a lot of change from yesterday. White count is slightly lower. Fentanyl seems to be helping with restlessness. Continue present treatment. 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 Subjective Subjective Date/Time Seen: 02/02/20 09:33 Patient reports: no new complaints ( Confusion dementia, not very reliable.), pain is less ( Low-dose fentanyl is helping with pain.) and afebrile Review of Systems Review of Systems: ROS unobtainable: Yes unobtainable due to mental status Exam Const: General: comfortable and no acute distress Nutritional Appearance: thin Orientation/consciousness: confusion Resp: Effort & Inspection: normal respiratory effort Auscultation: clear to auscultation bilaterally Cardio: Rate: regular rate Rhythm: regular rhythm GI: Inspection: normal to inspection, non-distended, scar and other ( Minimal NG output) GI Palp: Yes Soft to palpation, Yes Tenderness to palpation present (GI) ( Left upper quadrant, about the same or a little less than before.), No Guarding due to palpation present (GI) and No Rebound tenderness present Auscultation: Hypoactive bowel sounds present Extrem: General: no calf tenderness and no edema Psych: Affect: normal affect Insight: Good insight present (Psych) Judgement: Good judgement present (Psych) Objective Data Vital Signs Vital Signs: Vital Signs - 24 hr 02/01/20 14:00 02/01/20 20:00 02/01/20 22:00 Temperature 36.1 C L 36.0 C L Pulse Rate 113 H 96 96 Respiratory Rate 16 18 18 Blood Pressure 127/73 112/57 L Pulse Oximetry 96 99 99 02/02/20 05:22 Temperature 36.6 C Pulse Rate 92 Respiratory Rate 18 Blood Pressure 113/62 Pulse Oximetry 98 Intake/Output Intake/Output: Intake & Output 01/30/20 01/31/20 02/01/20 02/02/20 23:59 23:59 23:59 23:59 Intake Total 1000 1430 3315 428 Output Total 25 480 Balance 1000 1405 2835 428 Meds/Results Medications: Active Medications Generic Name Dose Route Start Last Admin Trade Name Freq PRN Reason Stop Dose Admin Amlodipine Besylate 10 mg 01/31/20 21:00 01/31/20 20:48 Norvasc PO Not Given HS [facility] Lipase/Protease/Amylase 2 cap 01/31/20 12:00 02/01/20 17:[address] 12,000 Units Capsule PO Not Given TIDWM [facility] Enoxaparin Sodium 30 mg 02/02/20 09:00 02/02/20 08:12 Lovenox SUB-Q 30 mg DAILY [facility] Administration Fenofibrate 160 mg 02/01/20 09:00 Fenofibrate PO DAILY [facility] Fentanyl Citrate 12.5 mcg 02/01/20 12:08 02/02/20 05:20 Sublimaze IV PUSH 12.5 mcg Q2H PRN Administration Pain Rated 6 or Greater Hydralazine HCl 10 mg 01/31/20 20:30 Apresoline Hcl Inj IV PUSH Q8H PRN Blood Pressure - High>160/80 Piperacillin Sod/Tazobactam Sod 2.25 gm in 50 mls @ 100 mls/hr 01/31/20 15:25 02/02/20 05:46 Zosyn 2.25 Gm/D5w 50 Ml IVPB Infused Q8HR [facility] Infusion Acetaminophen 1,000 mg in 100 mls @ 400 mls/hr 02/01/20 18:00 02/02/20 01:15 Ofirmev 1,000 Mg Ivpb IVPB 02/02/20 17:01 Infused Q6HR PRN Infusion Pain Rated 5 or Less Dextros
--- NOTE | 2020-02-02 13:55 | PM.IMPN ---
Progress Note: A&P Assessment and Plan (1) Free intraperitoneal air: Code(s): K66.8 - Other specified disorders of peritoneum Status: Acute Assessment and Plan: Imaging showing signs of persistent intraperitoneal free air today; possible perforation; ileus also noted. EGD per Dr. Abel earlier in stay; reveals acute gastrojejunal cratered ulcers; no signs of bleeding. Patient appears to be comfortable today, although still reported to be confused; pulled out NGT today. GI following and appreciate recommendations General Surgery consulted by GI for possible perforation; appreciate recommendations Continue on Zosyn IV. Patient pulled out NGT toda; Per surgery, keep NPO status for now Continue pain control as needed Limit narcotics if possible due to dementia (2) Acute on chronic renal failure: Qualifiers: Acute renal failure type: unspecified Chronic kidney disease stage: stage 3 (moderate) Qualified Code(s): N17.9 - Acute kidney failure, unspecified; N18.3 - Chronic kidney disease, stage 3 (moderate) Code(s): N17.9 - Acute kidney failure, unspecified; N18.9 - Chronic kidney disease, unspecified Status: Acute Assessment and Plan: Cr 2.20 this afternoon; stable Continue IVF Monitor renal function. Avoid nephrotoxic agents, renally dose medications. 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 (4) Dementia: Qualifiers: Dementia behavioral disturbance: without behavioral disturbance Dementia type: unspecified type Qualified Code(s): F03.90 - Unspecified dementia without behavioral disturbance Code(s): F03.90 - Unspecified dementia without behavioral disturbance Status: Chronic Assessment and Plan: Continue Seroquel (5) Gastroesophageal reflux disease: Code(s): K21.9 - Gastro-esophageal reflux disease without esophagitis Status: Chronic Assessment and Plan: Continue PPI therapy. (6) Essential hypertension: Code(s): I10 - Essential (primary) hypertension Status: Acute Assessment and Plan: Stable this morning, 110s sys Monitor blood pressure. Resume home antihypertensive medications once off NPO status PRN hydralazine with parameters (7) Urinary retention: Code(s): R33.9 - Retention of urine, unspecified Status: Chronic Assessment and Plan: Continue Tamsulosin when off NPO status (8) ASB (asymptomatic bacteriuria): Code(s): R82.71 - Bacteriuria Status: Acute Assessment and Plan: Urine Culture growing 50-100k of klebsiella oxytoca ESBL sensitive to Zosyn which patient is already on. 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 Patient is lethargic today, although was very agitated this morning. Patient appears comfortable now, sleeping, opens his eyes to verbal stimuli. Nods his head to yes/no questions. Patient denies chest pain, sob, abdominal pain at this moment but likely unreliable historian due to current mental status. Review of Systems Review of Systems: ROS unobtainable: Y
[2020-02-02 14:00] VITALS: BP 118/88; PULSE 106; RESP 18; TEMP 36.6; O2SAT 99
[2020-02-02] MEDS: QUEtiapine FUMARATE 25 MG TABLET PO (20:02)
[2020-02-02 20:11] VITALS: PULSE 106; RESP 18; O2SAT 99
[2020-02-03 01:37] VITALS: BP 116/54; PULSE 104; RESP 18; TEMP 36.4; O2SAT 97
[2020-02-03] MEDS: LORAZEPAM INJ 2 MG/ML VIAL 0.5 MG IV PUSH (05:34)
[2020-02-03 06:00] VITALS: BP 123/63; PULSE 98; RESP 18; TEMP 36.1; O2SAT 100
--- NOTE | 2020-02-03 07:09 | WPDGIPROGNO ---
Progress Note: A&P Additional Plan Patient is somnolent and sedated this morning. Physical exam reveals Vital Signs to be stable. He is afebrile. Lungs are clear. Heart without murmur. Abdomen bowel sounds are diminished. Abdomen is soft. No organomegaly appreciated. Impression 1. Free air. Suggestive of viscus perforation. Abdomen soft. Bowel sounds diminished however. KUB pending from this morning. Suspicious this may be from ulceration. He has a history of will post resection of pancreatic head mass. Histology of ulcers pending. 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 Ulcers in this area suspicious for possible recurrence. Histology pending. 3. 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 4. Dementia. Plan is to follow KUB. Continue antibiotics and bowel rest. Surgery following for apparent perforation of the small bowel. Ulcer suspected. Subjective Date/time seen: 02/03/20 07:09 Objective Data Vital Signs Vital Signs: Vital Signs - 24 hr 02/02/20 14:00 02/02/20 20:11 02/03/20 01:37 Temperature 36.6 C 36.4 C L Pulse Rate 106 H 106 H 104 H Respiratory Rate 18 18 18 Blood Pressure 118/88 116/54 L Pulse Oximetry 99 99 97 02/03/20 06:00 Temperature 36.1 C L Pulse Rate 98 Respiratory Rate 18 Blood Pressure 123/63 Pulse Oximetry 100 Intake/Output Intake/Output: Intake & Output 01/31/20 02/01/20 02/02/20 02/03/20 23:59 23:59 23:59 23:59 Intake Total 1430 3315 1628 100 Output Total 25 480 200 Balance 1405 2835 1428 100 Meds/Results Medications: Active Medications Generic Name Dose Route Start Last Admin Trade Name Freq PRN Reason Stop Dose Admin Amlodipine Besylate 10 mg 01/31/20 21:00 01/31/20 20:48 Norvasc PO Not Given HS [facility] Lipase/Protease/Amylase 2 cap 01/31/20 12:00 02/01/20 17:27 Sushila Fernandez 12,000 Units Capsule PO Not Given TIDWM [facility] Enoxaparin Sodium 30 mg 02/02/20 09:00 02/02/20 08:12 Lovenox SUB-Q 30 mg DAILY [facility] Administration Fenofibrate 160 mg 02/01/20 09:00 Fenofibrate PO DAILY [facility] Fentanyl Citrate 12.5 mcg 02/01/20 12:08 02/02/20 19:46 Sublimaze IV PUSH 12.5 mcg Q2H PRN Administration Pain Rated 6 or Greater Hydralazine HCl 10 mg 01/31/20 20:30 Apresoline Hcl Inj IV PUSH Q8H PRN Blood Pressure - High>160/80 Piperacillin Sod/Tazobactam Sod 2.25 gm in 50 mls @ 100 mls/hr 01/31/20 15:25 02/03/20 06:03 Zosyn 2.25 Gm/D5w 50 Ml IVPB Infused Q8HR [facility] Infusion Dextrose 1,000 mls @ 100 mls/hr 02/02/20 07:50 02/02/20 23:37 Dextrose 5% 1,000 Ml IV CONT 100 mls/hr .Q10H [facility] Administration Lorazepam 0.5 mg 01/31/20 21:40 02/03/20 05:34 Ativan Inj IV PUSH 0.5 mg Q4H PRN Administration Anxiety Ondansetron HCl 4 mg 01/31/20 00:08 Zofran Inj IV PUSH Q4H PRN Nausea Pantoprazole Sodium 40 mg 01/31/20 21:00 02/02/20 20:02 Protonix Iv IV PUSH 40 mg Q12HR [facility] Administration Quetiapine Fumarate 25 mg 01/31/20 21:00 02/02/20 20:02 Seroquel PO 25 mg HS [facility] Administration Radiology Results: ITS Impressions Abdomen/Pelvis CT 01/30/20 21:17 IMPRESSION: 1. Mild thickening of the colon at the splenic flexure with pericolonic inflammation. There is adjacent wall thickening and surrounding inflammatory change of the Nik limb immediately distal to the gastrojejunal anastomosis. These findings are most likely infectious, inflammatory or malignant. No significant change dating back to 11/30/2019. Abdomen X-Ray 02/02/20 07:32 IMPRESSION: 1. Dilated small bowel, likely adynamic ileus. 2. Free intraperitoneal gas again seen, consistent with perforated viscus.
--- NOTE | 2020-02-03 07:15 | PM.PNGS ---
Progress Note: A&P Assessment and Plan (1) Free intraperitoneal air: Code(s): K66.8 - Other specified disorders of peritoneum Status: Acute Assessment and Plan: Pending KUB and labs this morning. No fever. Heart rate trending down. Patient pulled out NG tube again last night. We left it out. Continue present treatment. Does not appear to be worse. 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 (3) Dementia: Qualifiers: Dementia type: unspecified type Dementia behavioral disturbance: without behavioral disturbance Qualified Code(s): F03.90 - Unspecified dementia without behavioral disturbance Code(s): F03.90 - Unspecified dementia without behavioral disturbance Status: Chronic Assessment and Plan: Confusion, restless, days and nights are reversed. 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 Subjective Subjective Date/Time Seen: 02/03/20 07:15 Patient sleepy this morning. Sitter reports he was up all night. Confused, wanting to leave. Days and nights are reversed. Review of Systems Review of Systems: ROS unobtainable: Yes unobtainable due to mental status Exam GI: Inspection: normal to inspection, non-distended and scar GI Palp: Yes Soft to palpation, Yes Tenderness to palpation present (GI) ( Mostly left upper quadrant, not as much as before.), No Hernia present and No Palpable mass present Auscultation: Hypoactive bowel sounds present Objective Data Vital Signs Vital Signs: Vital Signs - 24 hr 02/02/20 14:00 02/02/20 20:11 02/03/20 01:37 Temperature 36.6 C 36.4 C L Pulse Rate 106 H 106 H 104 H Respiratory Rate 18 18 18 Blood Pressure 118/88 116/54 L Pulse Oximetry 99 99 97 02/03/20 06:00 Temperature 36.1 C L Pulse Rate 98 Respiratory Rate 18 Blood Pressure 123/63 Pulse Oximetry 100 Intake/Output Intake/Output: Intake & Output 01/31/20 02/01/20 02/02/20 02/03/20 23:59 23:59 23:59 23:59 Intake Total 1430 3315 1628 100 Output Total 25 480 200 Balance 1405 2835 1428 100 Meds/Results Medications: Active Medications Generic Name Dose Route Start Last Admin Trade Name Freq PRN Reason Stop Dose Admin Amlodipine Besylate 10 mg 01/31/20 21:00 01/31/20 20:48 Norvasc PO Not Given HS [facility] Lipase/Protease/Amylase 2 cap 01/31/20 12:00 02/01/20 17:[address] 12,000 Units Capsule PO Not Given TIDWM [facility] Enoxaparin Sodium 30 mg 02/02/20 09:00 02/02/20 08:12 Lovenox SUB-Q 30 mg DAILY [facility] Administration Fenofibrate 160 mg 02/01/20 09:00 Fenofibrate PO DAILY [facility] Fentanyl Citrate 12.5 mcg 02/01/20 12:08 02/02/20 19:46 Sublimaze IV PUSH 12.5 mcg Q2H PRN Administration Pain Rated 6 or Greater Hydralazine HCl 10 mg 01/31/20 20:30 Apresoline Hcl Inj IV PUSH Q8H PRN Blood Pressure - High>160/80 Piperacillin Sod/Tazobactam Sod 2.25 gm in 50 mls @ 100 mls/hr 01/31/20 15:25 02/03/20 06:03 Zosyn 2.25 Gm/D5w 50 Ml IVPB Infused Q8HR [facility] Infusion Dextrose 1,000 mls @ 100 mls/hr 02/02/20 07:50 02/02/20 23:37 Dextrose 5% 1,000 Ml IV CONT 100 mls/hr .Q10H [facility] Administration Lorazepam 0.5 mg 01/31/20 21:40 02/03/20 05:34 Ativan Inj IV PUSH 0.5 mg Q4H PRN Administration Anxiety Ondansetron H
[2020-02-03 07:42] LABS: Basophils Absolute Auto 0.1 K/mm3 (0.0-0.1); Basophils Percent Auto 0.7 % (0.2-1.2); Eosinophils Absolute Auto 0.1 K/mm3 (0-0.3); Eosinophils Percent Auto 1.3 % (0-4.4); Hematocrit 33.9 % (42.0-52.0); Hemoglobin 10.1 g/dL (14.0-18.0); Immature Granulocyte Absolute 0.04 K/mm3 (0.00-0.031); Immature Granulocyte Percent A 0.6 % (0-0.5); Lymphocytes Percent Auto 13.5 % (18.3-44.2); Mean Corpuscular HGB Conc 29.8 g/dl (32-36); Mean Corpuscular Hemoglobin 28.9 pg (26-34); Mean Corpuscular Volume 96.9 fl (80-100); Mean Platelet Volume 11.3 fl (7.4-10.4); Monocytes Absolute Auto 0.4 K/mm3 (0.1-0.6); Neutrophils Absolute Auto 5.2 K/mm3 (1.3-6.7); Neutrophils Percent Auto 77.9 % (45.5-73.1); Platelet Count Result 315 k/mm3 (150-375); White Blood Count 6.7 K/mm3 (4.5-10.0)
[2020-02-03 08:12] LABS: Alanine Aminotransferase 16 U/L (4-50); Alkaline Phosphatase 61 U/L (38-126); Aspartate Amino Transferase 27 U/L (17-59); Bilirubin,Total 0.7 mg/dL (0.2-1.3); Blood Urea Nitrogen 39 mg/dL (9-20); Calcium 7.8 mg/dL (8.4-10.2); Carbon Dioxide 13 mmol/L (22-30); Chloride 122 mmol/L (98-107); Estimated CRCL calculation 16 ml/min; Estimated Glomerular Filt Rate 30; Glucose 164 mg/dL (75-110); Magnesium 2.1 mg/dL (1.6-2.3); Potassium 4.4 mmol/L (3.4-5.0); Sodium 139 mmol/L (137-145)
[2020-02-03] MEDS: PANTOPRAZOLE SODIUM IV 40 MG VIAL IV PUSH ×2 (08:44→20:21)
[2020-02-03] MEDS: ENOXAPARIN 30 MG/0.3 ML SYRINGE SUB-Q (08:44)
--- NOTE | 2020-02-03 09:19 | PM.IMPN ---
Progress Note: A&P Assessment and Plan (1) Free intraperitoneal air: Code(s): K66.8 - Other specified disorders of peritoneum Status: Acute Assessment and Plan: Imaging today unable to assess for intraperitoneal free air. EGD per Dr. Abel earlier in stay; reveals acute gastrojejunal cratered ulcers; no signs of bleeding. Patient appears to be comfortable today; lethargic from Ativan given this morning GI following and appreciate recommendations General Surgery consulted by GI for possible perforation; appreciate recommendations Continue on Zosyn IV. Patient pulled out NGT yesterday; Per surgery, keep NPO status for now Provide oral care as mucus membranes appear dry Continue pain control as needed Limit narcotics if possible due to dementia (2) Acute on chronic renal failure: Qualifiers: Acute renal failure type: unspecified Chronic kidney disease stage: stage 3 (moderate) Qualified Code(s): N17.9 - Acute kidney failure, unspecified; N18.3 - Chronic kidney disease, stage 3 (moderate) Code(s): N17.9 - Acute kidney failure, unspecified; N18.9 - Chronic kidney disease, unspecified Status: Acute Assessment and Plan: Cr 2.10 this afternoon; stable Continue IVF Monitor renal function. Avoid nephrotoxic agents, renally dose medications. 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 (4) Dementia: Qualifiers: Dementia type: unspecified type Dementia behavioral disturbance: without behavioral disturbance Qualified Code(s): F03.90 - Unspecified dementia without behavioral disturbance Code(s): F03.90 - Unspecified dementia without behavioral disturbance Status: Chronic Assessment and Plan: Continue Seroquel Ativan PRN for anxiety (5) Gastroesophageal reflux disease: Code(s): K21.9 - Gastro-esophageal reflux disease without esophagitis Status: Chronic Assessment and Plan: Continue PPI therapy. (6) Essential hypertension: Code(s): I10 - Essential (primary) hypertension Status: Acute Assessment and Plan: Stable this morning, 120s sys Monitor blood pressure. Resume home antihypertensive medications once off NPO status PRN hydralazine with parameters (7) Urinary retention: Code(s): R33.9 - Retention of urine, unspecified Status: Chronic Assessment and Plan: Continue Tamsulosin when off NPO status (8) ASB (asymptomatic bacteriuria): Code(s): R82.71 - Bacteriuria Status: Acute Assessment and Plan: Urine Culture growing 50-100k of klebsiella oxytoca ESBL sensitive to Zosyn which patient is already on. 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 Patient is lethargic today, although received Ativan this morning. Patient appears comfortable now, sleeping, responds to moans when asked to open eyes. Patient unreliable historian due to current mental status. Review of Systems Review of Systems: ROS unobtainable: Yes unobtainable due to mental status Exam Narrative: Exam Narrative: Patient lying
[2020-02-03] MEDS: DEXTROSE 5% 1,000 ML 1,000 ML 100 ML IV CONT (10:39)
--- NOTE | 2020-02-03 10:43 | PCNFU ---
Nutrition Follow-Up Complete: Underweight as related to Gastritis/Ulcer as evidenced by BMI: 16.8 goal: Adequate Intake of at least 75% of meal/supplements limited progress towards goal. Pt current nutrition is NPO x 4 days. Nutrition recommendation: Agree at this time Last recorded weight is 47.1 kg. Bowel Motility:No BM reported. Labs Reviewed:GFR 30,BUN 39,Cr 2.10,Na 122,Alb 2.0 Meds Noted:Ativan,Lovenox,Protonix, Dextrose 1000 ml at 100 ml/hr Additional Notes:Spoke with nursing today regarding patient due to COVID19 precautions. Patient had NGT over the weekend, currently has pulled NGT. Confused. He will remain NPO for bowel rest and monitor perforation at this time. Would Recommend starting TPN if diet order does not start by day 5. Monitoring: RD will monitor every 3 days.
[2020-02-03 14:00] VITALS: BP 132/87; PULSE 72; RESP 16; TEMP 36.7; O2SAT 91
[2020-02-03] MEDS: QUEtiapine FUMARATE 25 MG TABLET PO (20:22)
[2020-02-03 20:38] VITALS: BP 147/92; PULSE 114; RESP 16; TEMP 36.6; O2SAT 97
[2020-02-04] MEDS: DEXTROSE 5% 1,000 ML 1,000 ML 50 ML IV CONT ×2 (00:25→21:42)
[2020-02-04 05:52] LABS: Basophils Percent Auto 0.4 % (0.2-1.2); Eosinophils Absolute Auto 0.2 K/mm3 (0-0.3); Eosinophils Percent Auto 2.4 % (0-4.4); Hematocrit 32.4 % (42.0-52.0); Hemoglobin 10.6 g/dL (14.0-18.0); Immature Granulocyte Absolute 0.07 K/mm3 (0.00-0.031); Immature Granulocyte Percent A 0.9 % (0-0.5); Lymphocytes Absolute Auto 1.09 K/mm3 (0.9-3.2); Lymphocytes Percent Auto 14.5 % (18.3-44.2); Mean Corpuscular HGB Conc 32.7 g/dl (32-36); Mean Corpuscular Hemoglobin 28.5 pg (26-34); Mean Corpuscular Volume 87.1 fl (80-100); Mean Platelet Volume 11.1 fl (7.4-10.4); Monocytes Absolute Auto 0.5 K/mm3 (0.1-0.6); Neutrophils Absolute Auto 5.7 K/mm3 (1.3-6.7); Neutrophils Percent Auto 75.8 % (45.5-73.1); Platelet Count Result 320 k/mm3 (150-375); Red Blood Count 3.72 M/mm3 (4.6-6.20); Red Cell Distribution Width 15.2 % (11.5-14.5); White Blood Count 7.5 K/mm3 (4.5-10.0)
[2020-02-04 06:00] VITALS: BP 127/69; PULSE 103; RESP 14; TEMP 36.1; O2SAT 98
[2020-02-04 06:11] LABS: Alanine Aminotransferase 17 U/L (4-50); Albumin Level 2.1 g/dL (3.5-5.1); Alkaline Phosphatase 67 U/L (38-126); Aspartate Amino Transferase 15 U/L (17-59); Bilirubin,Total 0.4 mg/dL (0.2-1.3); Blood Urea Nitrogen 28 mg/dL (9-20); Calcium 8.1 mg/dL (8.4-10.2); Carbon Dioxide 18 mmol/L (22-30); Chloride 117 mmol/L (98-107); Estimated CRCL calculation 19 ml/min; Estimated Glomerular Filt Rate 36; Glucose 124 mg/dL (75-110); Magnesium 1.9 mg/dL (1.6-2.3); Potassium 3.1 mmol/L (3.4-5.0); Sodium 138 mmol/L (137-145)
--- NOTE | 2020-02-04 08:18 | WPDGIPROGNO ---
Progress Note: A&P Additional Plan Patient more alert this morning. Still somewhat somnolent. He states he feels a little bit better today. Physical exam reveals him to be afebrile. HEENT exam is anicteric. Lungs are clear. Abdomen is soft. Bowel sounds are present. Minimal discomfort noted in the left epigastric area. Labs reveal WBC 7.5, hemoglobin 10.6, hematocrit 32.4. Impression 1. Perforated viscus. Free air noted on KUB. Clinically improving with conservative management. Patient to continue antibiotics. Bowel rest to continue for now. Surgery following conservatively. 2. Anastomotic ulcer. Nonhealing. Benign histology on biopsy. Benign jejunal ulcer by histology. This is an area of previous IPMN an resection. Will continue proton pump inhibitors. 3. History of Whipple's resection of pancreatic head mass. Patient may have some underlying pancreatic insufficiency. When diet resumed Creon or other pancreatic enzymes will be implemented. 4. Dementia. Plan is to continue broad-spectrum antibiotic coverage. NG tube now out after patient pulled out. Will continue bowel rest for now. Surgery following. Will monitor obstructive series for now. Continue proton pump inhibitor for ulcer therapy. Subjective Date/time seen: 02/04/20 08:18 Objective Data Vital Signs Vital Signs: Vital Signs - 24 hr 02/03/20 14:00 02/03/20 20:38 02/04/20 06:00 Temperature 36.7 C 36.6 C 36.1 C L Pulse Rate 72 114 H 103 H Respiratory Rate 16 16 14 Blood Pressure 132/87 147/92 H 127/69 Pulse Oximetry 91 97 98 Intake/Output Intake/Output: Intake & Output 02/01/20 02/02/20 02/03/20 02/04/20 23:59 23:59 23:59 23:59 Intake Total 3315 1628 1773 592 Output Total 480 200 Balance 2835 1428 1773 592 Meds/Results Medications: Active Medications Generic Name Dose Route Start Last Admin Trade Name Freq PRN Reason Stop Dose Admin Amlodipine Besylate 10 mg 01/31/20 21:00 01/31/20 20:48 Norvasc PO Not Given HS [facility] Lipase/Protease/Amylase 2 cap 01/31/20 12:00 02/01/20 17:[address] 12,000 Units Capsule PO Not Given TIDWM [facility] Enoxaparin Sodium 30 mg 02/02/20 09:00 02/03/20 08:44 Lovenox SUB-Q 30 mg DAILY [facility] Administration Fenofibrate 160 mg 02/01/20 09:00 Fenofibrate PO DAILY [facility] Fentanyl Citrate 12.5 mcg 02/01/20 12:08 02/02/20 19:46 Sublimaze IV PUSH 12.5 mcg Q2H PRN Administration Pain Rated 6 or Greater Hydralazine HCl 10 mg 01/31/20 20:30 Apresoline Hcl Inj IV PUSH Q8H PRN Blood Pressure - High>160/80 Piperacillin Sod/Tazobactam Sod 2.25 gm in 50 mls @ 100 mls/hr 01/31/20 15:25 02/04/20 05:43 Zosyn 2.25 Gm/D5w 50 Ml IVPB Infused Q8HR [facility] Infusion Dextrose 1,000 mls @ 50 mls/hr 02/02/20 07:50 02/04/20 00:25 Dextrose 5% 1,000 Ml IV CONT 50 mls/hr .Q20H [facility] Administration Acetaminophen 650 mg in 65 mls @ 260 mls/hr 02/03/20 09:17 02/04/20 06:30 Ofirmev 650 Mg Ivpb IVPB 02/04/20 09:18 Infused Q6H PRN Infusion Pain Rated 5 or Less Lorazepam 0.5 mg 01/31/20 21:40 02/03/20 05:34 Ativan Inj IV PUSH 0.5 mg Q4H PRN Administration Anxiety Ondansetron HCl 4 mg 01/31/20 00:08 Zofran Inj IV PUSH Q4H PRN Nausea Pantoprazole Sodium 40 mg 01/31/20 21:00 02/03/20 20:21 Protonix Iv IV PUSH 40 mg Q12HR [facility] Administration Quetiapine Fumarate 25 mg 01/31/20 21:00 02/03/20 20:22 Seroquel PO 25 mg HS [facility] Administration Radiology Results: ITS Impressions Abdomen/Pelvis CT 01/30/20 21:17 IMPRESSION: 1. Mild thickening of the colon at the splenic flexure with pericolonic inflammation. There is adjacent wall thickening and surrounding inflammatory change of the Nik limb immediately distal to the gastrojejunal anastomosis. These findings are most likely infectious, inflammatory or malignant. No significant change dating back to 11/30/2019. Labs Lab
[2020-02-04] MEDS: ENOXAPARIN 30 MG/0.3 ML SYRINGE SUB-Q (08:59)
[2020-02-04] MEDS: PANTOPRAZOLE SODIUM IV 40 MG VIAL IV PUSH ×2 (08:59→20:05)
--- NOTE | 2020-02-04 10:00 | PM.PNGS ---
Progress Note: A&P Assessment and Plan (1) Free intraperitoneal air: Code(s): K66.8 - Other specified disorders of peritoneum Status: Acute Assessment and Plan: Seems to be a smaller amount on plain films. I think clearly there is no more free air and this leak has sealed. Peritonitis is improving and ileus resolving with active bowel sounds present now. Patient also had 2 bowel movements. Probably try clear liquids tomorrow if okay with Dr. Abel. Today is day #4 of IV Zosyn antibiotics. 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 Continue treatment with proton pump inhibitors. Convert to oral when feels appropriate. 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 (4) Dementia: Qualifiers: Dementia type: unspecified type Dementia behavioral disturbance: without behavioral disturbance Qualified Code(s): F03.90 - Unspecified dementia without behavioral disturbance Code(s): F03.90 - Unspecified dementia without behavioral disturbance Status: Chronic (5) Acute on chronic renal failure: Qualifiers: Acute renal failure type: unspecified Chronic kidney disease stage: stage 3 (moderate) Qualified Code(s): N17.9 - Acute kidney failure, unspecified; N18.3 - Chronic kidney disease, stage 3 (moderate) Code(s): N17.9 - Acute kidney failure, unspecified; N18.9 - Chronic kidney disease, unspecified Status: Acute Assessment and Plan: creatinine down to 1.8 today. Potassium also low. Acute component seems to be resolving. Subjective Subjective Date/Time Seen: 02/04/20 10:00 Still pretty sleepy although he was awake earlier this morning. Did not voice any complaints of abdominal pain to nursing. Really not awake enough to give any subjective findings when I saw him. Pathology on biopsies is back and shows benign ulcers. Patient reports: bowel movement and afebrile Review of Systems Review of Systems: ROS unobtainable: Yes unobtainable due to mental status Constitutional: Constitutional: Reports daytime sleepiness Exam GI: Inspection: normal to inspection, non-distended and scar GI Palp: Yes Soft to palpation and Yes Tenderness to palpation present (GI) ( A little less tender each day, mostly LUQ) Auscultation: normal bowel sounds Objective Data Vital Signs Vital Signs: Vital Signs - 24 hr 02/03/20 14:00 02/03/20 20:38 02/04/20 06:00 Temperature 36.7 C 36.6 C 36.1 C L Pulse Rate 72 114 H 103 H Respiratory Rate 16 16 14 Blood Pressure 132/87 147/92 H 127/69 Pulse Oximetry 91 97 98 Intake/Output Intake/Output: Intake & Output 02/01/20 02/02/20 02/03/20 02/04/20 23:59 23:59 23:59 23:59 Intake Total 3315 1628 1773 592 Output Total 480 200 Balance 2835 1428 1773 592 Meds/Results Medications: Active Medications Generic Name Dose Route Start Last Admin Trade Name Freq PRN Reason Stop Dose Admin Amlodipine Besylate 10 mg 01/31/20 21:00 01/31/20 20:48 Norvasc PO Not Given HS [facility] Lipase/Protease/Amylase 2 cap 01/31/20 12:00 02/01/20 17:[address] 12,000 Units Capsule PO Not Given TIDWM [facility] Enoxaparin Sodium 30 mg 02/02/20 09:00 02/04/20 08:59 Lovenox SUB-Q 30 mg DAILY [facility] Administration Fenofibrate 160 mg 02/01/20 09:00 Fenofibrate PO DAILY [facility] Fentanyl Citrate 12.5 mcg 02/01/20 12:08 02/02/20 19:46 Sublimaze IV PUSH 12.5 mcg Q2H PRN Administration Pain Rated 6 or Greater Hydralazine HCl 10 mg 01/31/20 20:30 Apresoline Hcl Inj IV PUSH Q8H PRN Blood Pressure - High>160/80 Piperacillin Sod/Tazobactam Sod 2.25 gm in 50 mls @ 100 mls/hr 01/31/20 15:25 02/04/20 05:43 Zosyn 2.25 Gm/D5w 50 Ml IVPB Infused Q8HR [facility] Infusion Dextrose
--- NOTE | 2020-02-04 10:35 | P.PNIM_ITS ---
Progress Note: A&P Assessment and Plan (1) Free intraperitoneal air: Code(s): K66.8 - Other specified disorders of peritoneum Status: Acute Assessment and Plan: Perforated Viscus. Repeat KUB today showed Gas scattered throughout nondilated large and small bowel consistent with ileus. 2. Moderate left pleural effusion with left basilar atelectasis and/or pneumonia. * EGD per Dr. Abel earlier in stay; reveals acute gastrojejunal cratered ulcers; no signs of bleeding. * Dr. Abel evaluated the patient today and recommended broad-spectrum antibiotic coverage, PPI and once eating well recommended start calfate. * General Surgery consulted by GI for possible perforation and recommended continuing conservative management and he believes from the KUB today his perforation has sealed. Recommended starting clear liquid diet tomorrow if GI okay. * Continue on Zosyn IV (Day #4) * Provide oral care as mucus membranes appear dry * Continue pain control as needed * Limit narcotics if possible due to dementia Continue monitoring patients symptoms and appreciate recommendations from GI and surgery. (2) Acute on chronic renal failure: Qualifiers: Acute renal failure type: unspecified Chronic kidney disease stage: stage 3 (moderate) Qualified Code(s): N17.9 - Acute kidney failure, unspecified; N18.3 - Chronic kidney disease, stage 3 (moderate) Code(s): N17.9 - Acute kidney failure, unspecified; N18.9 - Chronic kidney disease, unspecified Status: Acute Assessment and Plan: Cr 1.80 this morning, improved and appears to be at baseline. * Continue light IV fluids, since NPO and to prevent dehydration. * KUB did show Moderate left sided pleural effusion. * Monitor renal function. * Avoid nephrotoxic agents, renally dose medications. 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 (4) Dementia: Qualifiers: Dementia type: unspecified type Dementia behavioral disturbance: without behavioral disturbance Qualified Code(s): F03.90 - Unspecified dementia without behavioral disturbance Code(s): F03.90 - Unspecified dementia without behavioral disturbance Status: Chronic Assessment and Plan: * Continue Seroquel * Ativan PRN for anxiety (5) Gastroesophageal reflux disease: Code(s): K21.9 - Gastro-esophageal reflux disease without esophagitis Status: Chronic Assessment and Plan: * Continue PPI therapy. (6) Essential hypertension: Code(s): I10 - Essential (primary) hypertension Status: Acute Assessment and Plan: Stable this morning, 120s sys * Monitor blood pressure. * Resume home antihypertensive medications once off NPO status * PRN hydralazine with parameters (7) Urinary retention: Code(s): R33.9 - Retention of urine, unspecified Status: Chronic Assessment and Plan: * Continue Tamsulosin when off NPO status (8) ASB (asymptomatic bacteriuria): Code(s): R82.71 - Bacteriuria Status: Acute Assessment and Plan: Urine
--- NOTE | 2020-02-04 10:35 | PM.IMPN ---
Progress Note: A&P Assessment and Plan (1) Free intraperitoneal air: Code(s): K66.8 - Other specified disorders of peritoneum Status: Acute Assessment and Plan: Perforated Viscus. Repeat KUB today showed Gas scattered throughout nondilated large and small bowel consistent with ileus. 2. Moderate left pleural effusion with left basilar atelectasis and/or pneumonia. EGD per Dr. Abel earlier in stay; reveals acute gastrojejunal cratered ulcers; no signs of bleeding. Dr. Abel evaluated the patient today and recommended broad-spectrum antibiotic coverage, PPI and once eating well recommended start calfate. General Surgery consulted by GI for possible perforation and recommended continuing conservative management and he believes from the KUB today his perforation has sealed. Recommended starting clear liquid diet tomorrow if GI okay. Continue on Zosyn IV (Day #4) Provide oral care as mucus membranes appear dry Continue pain control as needed Limit narcotics if possible due to dementia Continue monitoring patients symptoms and appreciate recommendations from GI and surgery. (2) Acute on chronic renal failure: Qualifiers: Acute renal failure type: unspecified Chronic kidney disease stage: stage 3 (moderate) Qualified Code(s): N17.9 - Acute kidney failure, unspecified; N18.3 - Chronic kidney disease, stage 3 (moderate) Code(s): N17.9 - Acute kidney failure, unspecified; N18.9 - Chronic kidney disease, unspecified Status: Acute Assessment and Plan: Cr 1.80 this morning, improved and appears to be at baseline. Continue light IV fluids, since NPO and to prevent dehydration. KUB did show Moderate left sided pleural effusion. Monitor renal function. Avoid nephrotoxic agents, renally dose medications. 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 (4) Dementia: Qualifiers: Dementia type: unspecified type Dementia behavioral disturbance: without behavioral disturbance Qualified Code(s): F03.90 - Unspecified dementia without behavioral disturbance Code(s): F03.90 - Unspecified dementia without behavioral disturbance Status: Chronic Assessment and Plan: Continue Seroquel Ativan PRN for anxiety (5) Gastroesophageal reflux disease: Code(s): K21.9 - Gastro-esophageal reflux disease without esophagitis Status: Chronic Assessment and Plan: Continue PPI therapy. (6) Essential hypertension: Code(s): I10 - Essential (primary) hypertension Status: Acute Assessment and Plan: Stable this morning, 120s sys Monitor blood pressure. Resume home antihypertensive medications once off NPO status PRN hydralazine with parameters (7) Urinary retention: Code(s): R33.9 - Retention of urine, unspecified Status: Chronic Assessment and Plan: Continue Tamsulosin when off NPO status (8) ASB (asymptomatic bacteriuria): Code(s): R82.71 - Bacteriuria Status: Acute Assessment and Plan: Urine Culture growing 50-100k of klebsiella oxytoca ESBL sensitive to Zosyn which patient is already on. Patient asymptomatic yesterday and today Monitor continue IV antibiotics for perforation Time Spent With Patient Time with patient: 25 - 35 minutes Subjective Date/time seen: 02/04/20 10:35 Interval history: Patient is a 84 yo M with history of intrad
[2020-02-04] MEDS: MICONAZOLE NITRATE 2% CREAM 30 GM TUBE 1 APPLIC TOPICAL ×2 (12:39→20:09)
[2020-02-04 14:40] VITALS: BP 142/79; PULSE 97; RESP 18; TEMP 36.8; O2SAT 99
[2020-02-04 20:00] VITALS: PULSE 99; RESP 15; O2SAT 97
[2020-02-04] MEDS: QUEtiapine FUMARATE 25 MG TABLET PO (20:05)
[2020-02-04] MEDS: LORAZEPAM INJ 2 MG/ML VIAL 0.5 MG IV PUSH (20:15)
[2020-02-04 21:25] VITALS: BP 129/63; PULSE 99; RESP 15; TEMP 36.6; O2SAT 97
[2020-02-05 06:00] VITALS: BP 134/86; PULSE 92; RESP 16; TEMP 36.1; O2SAT 97
[2020-02-05 06:02] LABS: Hematocrit 30.1 % (42.0-52.0); Hemoglobin 9.9 g/dL (14.0-18.0); Mean Corpuscular HGB Conc 32.9 g/dl (32-36); Mean Corpuscular Hemoglobin 28.3 pg (26-34); Mean Platelet Volume 11.3 fl (7.4-10.4); Platelet Count Result 274 k/mm3 (150-375); Red Cell Distribution Width 15.1 % (11.5-14.5); White Blood Count 9.6 K/mm3 (4.5-10.0)
[2020-02-05 06:05] LABS: Blood Urea Nitrogen 21 mg/dL (9-20); Calcium 7.7 mg/dL (8.4-10.2); Carbon Dioxide 19 mmol/L (22-30); Chloride 114 mmol/L (98-107); Estimated CRCL calculation 24 ml/min; Estimated Glomerular Filt Rate 48; Glucose 121 mg/dL (75-110); Magnesium 1.8 mg/dL (1.6-2.3); Potassium 3.5 mmol/L (3.4-5.0); Sodium 135 mmol/L (137-145)
--- NOTE | 2020-02-05 07:18 | PM.PNGS ---
Progress Note: A&P Assessment and Plan (1) Free intraperitoneal air: Code(s): K66.8 - Other specified disorders of peritoneum Status: Acute Assessment and Plan: Discussed with Dr. Abel. Will go ahead and try clear liquids today. Cont IV Zosyn, now on day #5 of antibiotic therapy. 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 Continue treatment with proton pump inhibitors. Convert to oral when feels appropriate. 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 (4) Dementia: Qualifiers: Dementia type: unspecified type Dementia behavioral disturbance: without behavioral disturbance Qualified Code(s): F03.90 - Unspecified dementia without behavioral disturbance Code(s): F03.90 - Unspecified dementia without behavioral disturbance Status: Chronic (5) Acute on chronic renal failure: Qualifiers: Acute renal failure type: unspecified Chronic kidney disease stage: stage 3 (moderate) Qualified Code(s): N17.9 - Acute kidney failure, unspecified; N18.3 - Chronic kidney disease, stage 3 (moderate) Code(s): N17.9 - Acute kidney failure, unspecified; N18.9 - Chronic kidney disease, unspecified Status: Acute Assessment and Plan: creatinine down to 1.4 today. Potassium is up to 3.5. Acute component seems to be resolving. Subjective Subjective Date/Time Seen: 02/05/20 07:18 Patient reports: no new complaints ( Still very sleepy. No real complaints or problems. Nursing notices no new complaints or problems.) Review of Systems Review of Systems: All systems reviewed & are unremarkable except as noted in HPI and below ROS unobtainable: Yes unobtainable due to mental status Constitutional: Constitutional: Reports daytime sleepiness Exam Chest: Chest palpation & inspection: mass and no tenderness Resp: Effort & Inspection: normal respiratory effort, no audible wheezes, no cough and no pursed lip breathing Auscultation: clear to auscultation bilaterally Cardio: Rate: regular rate Rhythm: regular rhythm Heart sounds: no gallops, no murmurs and no rubs GI: Inspection: normal to inspection, non-distended and scar GI Palp: Yes Soft to palpation and Yes Tenderness to palpation present (GI) ( Slight left upper quadrant tenderness, continues to decrease) Auscultation: normal bowel sounds Objective Data Vital Signs Vital Signs: Vital Signs - 24 hr 02/04/20 14:40 02/04/20 20:00 02/04/20 21:25 Temperature 36.8 C 36.6 C Pulse Rate 97 99 99 Respiratory Rate 18 15 15 Blood Pressure 142/79 H 129/63 Pulse Oximetry 99 97 97 02/05/20 06:00 Temperature 36.1 C L Pulse Rate 92 Respiratory Rate 16 Blood Pressure 134/86 Pulse Oximetry 97 Intake/Output Intake/Output: Intake & Output 02/02/20 02/03/20 02/04/20 02/05/20 23:59 23:59 23:59 23:59 Intake Total 1628 1773 2192 Output Total 200 Balance 1428 1773 2192 Meds/Results Medications: Active Medications Generic Name Dose Route Start Last Admin Trade Name Freq PRN Reason Stop Dose Admin Amlodipine Besylate 10 mg 01/31/20 21:00 01/31/20 20:48 Norvasc PO Not Given HS [facility] Lipase/Protease/Amylase 2 cap 01/31/20 12:00 02/01/20 17:[address] 12,000 Units Capsule PO Not Given TIDWM [facility] Enoxaparin Sodium 30 mg 02/02/20 09:00 02/04/20 08:59 Lovenox SUB-Q 30 mg DAILY [facility] Administration Fenofibrate 160 mg 02/01/20 09:00 Fenofibrate PO DAILY [facility] Hydralazine HCl 10 mg 01/31/20 20:30 Apresoline Hcl Inj IV PUSH Q8H PRN Blood Pressure - High>160/80 Piperacillin Sod/Tazobactam Sod 2.25 gm in 50 mls @ 100 mls/hr 01/31/20 15:25 02/05/20 06:13 Zosyn 2.25 Gm/D5w 50 Ml IVPB 100 mls/hr Q8HR [facility] Administration Dextro
--- NOTE | 2020-02-05 07:37 | WPDGIPROGNO ---
Progress Note: A&P Additional Plan Patient still somnolent this morning. Unable to give useful history. Apparently has been receiving pain medications on occasion. And sedation. Physical exam reveals him to vital signs stable. He is a afebrile. Anicteric. Lungs are clear. Heart without murmur. Abdomen soft. Bowel sounds are present. Mild left upper quadrant discomfort. Similar to findings at baseline. KUB suggest no additional free air. It may be resort being. Impression 1. Free air in the abdomen. Suggesting perforation. Most likely it area of known ulceration. I have discussed this with surgery Dr. Machuca. Plan is to continue antibiotics and treat conservatively. He wishes to try clear liquids today and will proceed with this. 2. History Whipple's resection. Patient has a history of pancreatic IPMN status post Whipple's resection. Marginal ulcers noted at surgical anastomosis. These are not healing. Histology found to be benign. Plan is to continue proton pump inhibitor therapy. 3. Dementia. Patient all may also have confusion from pain medications and/or sedation. At the present will try to limit narcotics and sedation. Subjective Date/time seen: 02/05/20 07:37 Objective Data Vital Signs Vital Signs: Vital Signs - 24 hr 02/04/20 14:40 02/04/20 20:00 02/04/20 21:25 Temperature 36.8 C 36.6 C Pulse Rate 97 99 99 Respiratory Rate 18 15 15 Blood Pressure 142/79 H 129/63 Pulse Oximetry 99 97 97 02/05/20 06:00 Temperature 36.1 C L Pulse Rate 92 Respiratory Rate 16 Blood Pressure 134/86 Pulse Oximetry 97 Intake/Output Intake/Output: Intake & Output 02/02/20 02/03/20 02/04/20 02/05/20 23:59 23:59 23:59 23:59 Intake Total 1628 1773 2192 50 Output Total 200 Balance 1428 1773 2192 50 Meds/Results Medications: Active Medications Generic Name Dose Route Start Last Admin Trade Name Freq PRN Reason Stop Dose Admin Amlodipine Besylate 10 mg 01/31/20 21:00 01/31/20 20:48 Norvasc PO Not Given HS [facility] Lipase/Protease/Amylase 2 cap 01/31/20 12:00 02/01/20 17:27 Sushila Fernandez 12,000 Units Capsule PO Not Given TIDWM [facility] Enoxaparin Sodium 30 mg 02/02/20 09:00 02/04/20 08:59 Lovenox SUB-Q 30 mg DAILY [facility] Administration Fenofibrate 160 mg 02/01/20 09:00 Fenofibrate PO DAILY [facility] Hydralazine HCl 10 mg 01/31/20 20:30 Apresoline Hcl Inj IV PUSH Q8H PRN Blood Pressure - High>160/80 Piperacillin Sod/Tazobactam Sod 2.25 gm in 50 mls @ 100 mls/hr 01/31/20 15:25 02/05/20 06:43 Zosyn 2.25 Gm/D5w 50 Ml IVPB Infused Q8HR [facility] Infusion Dextrose 1,000 mls @ 50 mls/hr 02/02/20 07:50 02/05/20 07:30 Dextrose 5% 1,000 Ml IV CONT Not Given .Q20H [facility] Acetaminophen 1,000 mg in 100 mls @ 400 mls/hr 02/05/20 07:15 Ofirmev 1,000 Mg Ivpb IVPB 02/06/20 07:16 Q6H PRN Pain or Fever Lorazepam 0.5 mg 01/31/20 21:40 02/04/20 20:15 Ativan Inj IV PUSH 0.5 mg Q4H PRN Administration Anxiety Miconazole Nitrate 1 applic 02/04/20 11:55 02/04/20 20:09 Miconazole Nitrate 2% Cream TOPICAL 1 applic Q12HR [facility] Administration Ondansetron HCl 4 mg 01/31/20 00:08 Zofran Inj IV PUSH Q4H PRN Nausea Pantoprazole Sodium 40 mg 01/31/20 21:00 02/04/20 20:05 Protonix Iv IV PUSH 40 mg Q12HR [facility] Administration Quetiapine Fumarate 25 mg 01/31/20 21:00 02/04/20 20:05 Seroquel PO 25 mg HS [facility] Administration Radiology Results: ITS Impressions Abdomen/Pelvis CT 01/30/20 21:17 IMPRESSION: 1. Mild thickening of the colon at the splenic flexure with pericolonic inflammation. There is adjacent wall thickening and surrounding inflammatory change of the Nik limb immediately distal to the gastrojejunal anastomosis. These findings are most likely infectious, inflammatory or malignant. No significant change dating back to 11/30/2019. Abdomen X-Ray 02/05/20 07:02 IMPRESSION: 1.
[2020-02-05] MEDS: PANTOPRAZOLE SODIUM IV 40 MG VIAL IV PUSH ×2 (09:29→21:11)
[2020-02-05] MEDS: ENOXAPARIN 30 MG/0.3 ML SYRINGE SUB-Q (09:29)
[2020-02-05] MEDS: MICONAZOLE NITRATE 2% CREAM 30 GM TUBE 1 APPLIC TOPICAL ×2 (09:30→21:11)
--- NOTE | 2020-02-05 11:07 | PM.IMPN ---
Progress Note: A&P Assessment and Plan (1) Free intraperitoneal air: Code(s): K66.8 - Other specified disorders of peritoneum Status: Acute Assessment and Plan: Perforated Viscus. Repeat KUB today showed Persistently dilated loops of small bowel, consistent with adynamic ileus versus partial obstruction. Free intraperitoneal gas without change. EGD per Dr. Abel earlier in stay; reveals acute gastrojejunal cratered ulcers; no signs of bleeding. Dr. Abel evaluated the patient today and recommended broad-spectrum antibiotic coverage, PPI and once eating well recommended start calfate. General Surgery consulted by GI for possible perforation and recommended continuing conservative management and he believes from the KUB today his perforation has sealed. GI and Surgery recommended starting clear liquid diet today. Will monitor how he tolerates it. Continue on Zosyn IV (Day #5) Continue pain control as needed. Limit narcotics if possible due to dementia Continue monitoring patients symptoms and appreciate recommendations from GI and surgery. (2) Acute on chronic renal failure: Qualifiers: Acute renal failure type: unspecified Chronic kidney disease stage: stage 3 (moderate) Qualified Code(s): N17.9 - Acute kidney failure, unspecified; N18.3 - Chronic kidney disease, stage 3 (moderate) Code(s): N17.9 - Acute kidney failure, unspecified; N18.9 - Chronic kidney disease, unspecified Status: Acute Assessment and Plan: Cr 1.40 this morning, improved and appears to be at baseline. Continue light IV fluids, until he is tolerating a diet well. Monitor renal function. Avoid nephrotoxic agents, renally dose medications. 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 (4) Dementia: Qualifiers: Dementia behavioral disturbance: without behavioral disturbance Dementia type: unspecified type Qualified Code(s): F03.90 - Unspecified dementia without behavioral disturbance Code(s): F03.90 - Unspecified dementia without behavioral disturbance Status: Chronic Assessment and Plan: Continue Seroquel Ativan PRN for anxiety (5) Gastroesophageal reflux disease: Code(s): K21.9 - Gastro-esophageal reflux disease without esophagitis Status: Chronic Assessment and Plan: Continue PPI therapy. (6) Essential hypertension: Code(s): I10 - Essential (primary) hypertension Status: Acute Assessment and Plan: Stable this morning, 130s sys Monitor blood pressure. Resume home antihypertensive medications once off NPO status PRN hydralazine with parameters (7) Urinary retention: Code(s): R33.9 - Retention of urine, unspecified Status: Chronic Assessment and Plan: Continue Tamsulosin when off NPO status (8) ASB (asymptomatic bacteriuria): Code(s): R82.71 - Bacteriuria Status: Acute Assessment and Plan: Urine Culture growing 50-100k of klebsiella oxytoca ESBL sensitive to Zosyn which patient is already on. 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
[2020-02-05] MEDS: MAGNESIUM SULF 2 GM/WATER 50ML 2 GM/50 ML BAG IVPB (13:32)
[2020-02-05 14:00] VITALS: BP 112/63; PULSE 62; RESP 20; TEMP 36.3; O2SAT 99
--- NOTE | 2020-02-05 14:01 | PCOTNOTE ---
Patient's occupational therapy treatment frequency downgraded from OD5-7x/week to OD2-3x/week due to increased agitation and reduced voluntary participation in therapy. Will continue current occupational therapy plan of care.
[2020-02-05] MEDS: DEXTROSE 5% 1,000 ML 1,000 ML 50 ML IV CONT (17:32)
[2020-02-05 20:00] VITALS: PULSE 62; RESP 20; O2SAT 99
[2020-02-05] MEDS: QUEtiapine FUMARATE 25 MG TABLET PO (21:11)
[2020-02-05 22:00] VITALS: BP 124/73; PULSE 95; RESP 20; TEMP 36.6; O2SAT 96
[2020-02-06 05:50] LABS: Hematocrit 28.7 % (42.0-52.0); Hemoglobin 9.4 g/dL (14.0-18.0); Mean Corpuscular HGB Conc 32.8 g/dl (32-36); Mean Corpuscular Hemoglobin 28.2 pg (26-34); Mean Corpuscular Volume 86.2 fl (80-100); Mean Platelet Volume 10.6 fl (7.4-10.4); Platelet Count Result 260 k/mm3 (150-375); Red Blood Count 3.33 M/mm3 (4.6-6.20); Red Cell Distribution Width 14.9 % (11.5-14.5); White Blood Count 9.4 K/mm3 (4.5-10.0)
[2020-02-06 06:00] VITALS: BP 135/68; PULSE 91; RESP 20; TEMP 36.2; O2SAT 98
[2020-02-06 06:06] LABS: Blood Urea Nitrogen 17 mg/dL (9-20); Calcium 7.2 mg/dL (8.4-10.2); Carbon Dioxide 21 mmol/L (22-30); Chloride 112 mmol/L (98-107); Estimated CRCL calculation 28 ml/min; Estimated Glomerular Filt Rate 58; Glucose 117 mg/dL (75-110); Magnesium 2.3 mg/dL (1.6-2.3); Potassium 3.3 mmol/L (3.4-5.0); Sodium 134 mmol/L (137-145)
--- NOTE | 2020-02-06 07:47 | PM.PNGS ---
Progress Note: A&P Assessment and Plan (1) Free intraperitoneal air: Code(s): K66.8 - Other specified disorders of peritoneum Status: Acute Assessment and Plan: Did not take in much with clear liquids yesterday. Will try full liquids today. Advance to soft if tolerates. 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 (3) Dementia: Qualifiers: Dementia type: unspecified type Dementia behavioral disturbance: without behavioral disturbance Qualified Code(s): F03.90 - Unspecified dementia without behavioral disturbance Code(s): F03.90 - Unspecified dementia without behavioral disturbance Status: Chronic Assessment and Plan: Sleepy and confused. 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 Sleepy and confused. Review of Systems Review of Systems: ROS unobtainable: Yes unobtainable due to mental status Exam GI: Inspection: normal to inspection, non-distended and scar GI Palp: Yes Soft to palpation Auscultation: normal bowel sounds Objective Data Vital Signs Vital Signs: Vital Signs - 24 hr 02/05/20 14:00 02/05/20 20:00 02/05/20 22:00 Temperature 36.3 C L 36.6 C Pulse Rate 62 62 95 Respiratory Rate 20 20 20 Blood Pressure 112/63 124/73 Pulse Oximetry 99 99 96 02/06/20 06:00 Temperature 36.2 C L Pulse Rate 91 Respiratory Rate 20 Blood Pressure 135/68 Pulse Oximetry 98 Intake/Output Intake/Output: Intake & Output 02/03/20 02/04/20 02/05/20 02/06/20 23:59 23:59 23:59 23:59 Intake Total 1773 2192 1325 500 Balance 1773 2192 1325 500 Meds/Results Medications: Active Medications Generic Name Dose Route Start Last Admin Trade Name Freq PRN Reason Stop Dose Admin Amlodipine Besylate 10 mg 01/31/20 21:00 01/31/20 20:48 Norvasc PO Not Given HS ESTHELA Lipase/Protease/Amylase 2 cap 01/31/20 12:00 02/01/20 17:27 Creleona Fernandez 12,000 Units Capsule PO Not Given TIDWM [facility] Enoxaparin Sodium 30 mg 02/02/20 09:00 02/05/20 09:29 Lovenox SUB-Q 30 mg DAILY ESTHELA Administration Fenofibrate 160 mg 02/01/20 09:00 Fenofibrate PO DAILY [facility] Hydralazine HCl 10 mg 01/31/20 20:30 Apresoline Hcl Inj IV PUSH Q8H PRN Blood Pressure - High>160/80 Dextrose 1,000 mls @ 50 mls/hr 02/02/20 07:50 02/05/20 17:32 Dextrose 5% 1,000 Ml IV CONT 50 mls/hr .Q20H ESTHELA Administration Piperacillin Sod/Tazobactam Sod 2.25 gm in 50 mls @ 100 mls/hr 02/05/20 12:00 02/06/20 07:32 Zosyn 2.25 Gm/D5w 50 Ml IVPB Infused Q6HR ESTHELA Infusion Lorazepam 0.5 mg 01/31/20 21:40 02/04/20 20:15 Ativan Inj IV PUSH 0.5 mg Q4H PRN Administration Anxiety Miconazole Nitrate 1 applic 02/04/20 11:55 02/05/20 21:11 Miconazole Nitrate 2% Cream TOPICAL 1 applic Q12HR [facility] Administration Ondansetron HCl 4 mg 01/31/20 00:08 Zofran Inj IV PUSH Q4H PRN Nausea Pantoprazole Sodium 40 mg 01/31/20 21:00 02/05/20 21:11 Protonix Iv IV PUSH 40 mg Q12HR ESTHELA Administration Quetiapine Fumarate 25 mg 01/31/20 21:00 02/05/20 21:11 Seroquel PO 25 mg HS ESTHELA Administration Radiology Results: ITS Impressions Abdomen/Pelvis CT 01/30/20 21:17 IMPRESSION: 1. Mild thickening of the colon at the splenic flexure with pericolonic inflammation. There is adjacent wall thickening and surrounding inflammatory change of the Nik limb immediately distal to the gastrojejunal anastomosis. These findings are most likely infectious, inflammatory or malignant. No significant change dating back to 11/30/2019. Abdomen X-Ray 02/05/20 07:02 IMPRESSION: 1. Persistently dilated loops of small bowel, cons
--- NOTE | 2020-02-06 07:57 | WPDGIPROGNO ---
Progress Note: A&P Additional Plan Patient more alert this morning. Not well oriented. Denies significant pain today. Physical exam reveals him to be alert. Vital signs stable. He is afebrile. Lungs are clear. Heart without murmur. Abdomen is soft with minimal tenderness. Bowel sounds are present normoactive. Impression 1. Resolving ileus. Minimal free air on KUB. Agree with increasing diet as per Dr. Machuca's instructions. 2. Peptic ulcer disease. 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 [place] to be likely source of recent perforation. Poorly healing. Benign histology. Plan is to continue PPI. Avoid nonsteroidal anti-inflammatory agents. 3. Dementia. Subjective Date/time seen: 02/06/20 07:57 Objective Data Vital Signs Vital Signs: Vital Signs - 24 hr 02/05/20 14:00 02/05/20 20:00 02/05/20 22:00 Temperature 36.3 C L 36.6 C Pulse Rate 62 62 95 Respiratory Rate 20 20 20 Blood Pressure 112/63 124/73 Pulse Oximetry 99 99 96 02/06/20 06:00 Temperature 36.2 C L Pulse Rate 91 Respiratory Rate 20 Blood Pressure 135/68 Pulse Oximetry 98 Intake/Output Intake/Output: Intake & Output 02/03/20 02/04/20 02/05/20 02/06/20 23:59 23:59 23:59 23:59 Intake Total 1773 2192 1325 500 Balance 1773 2192 1325 500 Meds/Results Medications: Active Medications Generic Name Dose Route Start Last Admin Trade Name Freq PRN Reason Stop Dose Admin Amlodipine Besylate 10 mg 01/31/20 21:00 01/31/20 20:48 Norvasc PO Not Given HS ESTHELA Lipase/Protease/Amylase 2 cap 01/31/20 12:00 02/01/20 17:27 Creon 12,000 Units Capsule PO Not Given TIDWM [facility] Enoxaparin Sodium 30 mg 02/02/20 09:00 02/05/20 09:29 Lovenox SUB-Q 30 mg DAILY ESTHELA Administration Fenofibrate 160 mg 02/01/20 09:00 Fenofibrate PO DAILY ESTHELA Hydralazine HCl 10 mg 01/31/20 20:30 Apresoline Hcl Inj IV PUSH Q8H PRN Blood Pressure - High>160/80 Dextrose 1,000 mls @ 50 mls/hr 02/02/20 07:50 02/05/20 17:32 Dextrose 5% 1,000 Ml IV CONT 50 mls/hr .Q20H ESTHELA Administration Piperacillin Sod/Tazobactam Sod 2.25 gm in 50 mls @ 100 mls/hr 02/05/20 12:00 02/06/20 07:32 Zosyn 2.25 Gm/D5w 50 Ml IVPB Infused Q6HR ESTHELA Infusion Lorazepam 0.5 mg 01/31/20 21:40 02/04/20 20:15 Ativan Inj IV PUSH 0.5 mg Q4H PRN Administration Anxiety Miconazole Nitrate 1 applic 02/04/20 11:55 02/05/20 21:11 Miconazole Nitrate 2% Cream TOPICAL 1 applic Q12HR ESTHELA Administration Ondansetron HCl 4 mg 01/31/20 00:08 Zofran Inj IV PUSH Q4H PRN Nausea Pantoprazole Sodium 40 mg 01/31/20 21:00 02/05/20 21:11 Protonix Iv IV PUSH 40 mg Q12HR ESTHELA Administration Quetiapine Fumarate 25 mg 01/31/20 21:00 02/05/20 21:11 Seroquel PO 25 mg HS ESTHELA Administration Radiology Results: ITS Impressions Abdomen/Pelvis CT 01/30/20 21:17 IMPRESSION: 1. Mild thickening of the colon at the splenic flexure with pericolonic inflammation. There is adjacent wall thickening and surrounding inflammatory change of the Nik limb immediately distal to the gastrojejunal anastomosis. These findings are most likely infectious, inflammatory or malignant. No significant change dating back to 11/30/2019. Abdomen X-Ray 02/05/20 07:02 IMPRESSION: 1. Persistently dilated loops of small bowel, consistent with adynamic ileus versus partial obstruction. 2. Free intraperitoneal gas without change. Chest X-Ray 02/05/20 11:24 IMPRESSION: 1. Moderate-sized left pleural effusion with airspace opacities of the left mid and lower lung zones, likely atelectasis. Labs Labs: Laboratory Results - last 24 hr 02/06/20 02/06/20 05:32 05:32 WBC 9.4 RBC 3.33 L Hgb 9.4 L Hct 28.7 L MCV 86.2 MCH 28.2 MCHC 32.8 RDW 14.9 H Plt Count 260 MPV 10.6 H Sodium 134 L Potassium 3.3 L Chloride 112 H Carbon Dioxide 21 L
[2020-02-06] MEDS: PANTOPRAZOLE SODIUM IV 40 MG VIAL IV PUSH ×2 (08:22→20:59)
[2020-02-06] MEDS: ENOXAPARIN 30 MG/0.3 ML SYRINGE SUB-Q (08:22)
[2020-02-06] MEDS: MICONAZOLE NITRATE 2% CREAM 30 GM TUBE 1 APPLIC TOPICAL ×2 (08:22→20:59)
--- NOTE | 2020-02-06 10:19 | PCDIET ---
Nutrition Follow-Up Complete: Underweight as related to Gastritis/Ulcer as evidenced by BMI: 16.8 Adequate Intake of at least 75% of meal/supplements Goal:Goal not met. Continue with current goal. Pt current nutrition is Full Liquids. Nutrition recommendation:Agree Last recorded weight is 47.1 kg. (No new wt. Recommend new wt) Bowel Motility: BS normal (ileus resolving per MD) No BM noted Labs Reviewed:K 3.3, Glucose 117, GFR 58, Na 134 Meds Noted:Ativan, Protonix Additional Notes: Pt diet advanced to full liquids. PO intake only 10%. Enlive ordered TID to help meet needs. Ensure Enlive provides 350kcal, 20g of protein, and 26 essential vitamins and minerals per serving. Bowel sounds improving, ileus resolving. Recommend ADAT to 2gm Na. We will continue to monitor for adequate PO intake every 3 days.
--- NOTE | 2020-02-06 13:11 | PM.IMPN ---
Progress Note: A&P Assessment and Plan (1) Free intraperitoneal air: Code(s): K66.8 - Other specified disorders of peritoneum Status: Acute Assessment and Plan: Perforated Viscus. Repeat KUB yesterday showed Persistently dilated loops of small bowel, consistent with adynamic ileus versus partial obstruction. Free intraperitoneal gas without change. EGD per Dr. Abel earlier in stay; reveals acute gastrojejunal cratered ulcers; no signs of bleeding. Dr. Abel evaluated the patient today and recommended broad-spectrum antibiotic coverage, PPI and once eating well recommended start calfate. General Surgery consulted by GI for possible perforation and recommended continuing conservative management and he believes from the KUB from yesterday showed the perforation has sealed. GI and Surgery advanced diet to full liquid and he ate 10% of his breakfast. Will monitor how he tolerates it. Continue on Zosyn IV (Day #6) Continue pain control as needed. Limit narcotics if possible due to dementia Continue monitoring patients symptoms and appreciate recommendations from GI and surgery. (2) Acute on chronic renal failure: Qualifiers: Acute renal failure type: unspecified Chronic kidney disease stage: stage 3 (moderate) Qualified Code(s): N17.9 - Acute kidney failure, unspecified; N18.3 - Chronic kidney disease, stage 3 (moderate) Code(s): N17.9 - Acute kidney failure, unspecified; N18.9 - Chronic kidney disease, unspecified Status: Acute Assessment and Plan: Cr 1.20 this morning, improved and appears to be at baseline. Continue light IV fluids, until he is tolerating a diet well. Monitor renal function. Avoid nephrotoxic agents, renally dose medications. 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 (4) Dementia: Qualifiers: Dementia type: unspecified type Dementia behavioral disturbance: without behavioral disturbance Qualified Code(s): F03.90 - Unspecified dementia without behavioral disturbance Code(s): F03.90 - Unspecified dementia without behavioral disturbance Status: Chronic Assessment and Plan: Continue Seroquel Ativan PRN for anxiety (5) Gastroesophageal reflux disease: Code(s): K21.9 - Gastro-esophageal reflux disease without esophagitis Status: Chronic Assessment and Plan: Continue PPI therapy. (6) Essential hypertension: Code(s): I10 - Essential (primary) hypertension Status: Acute Assessment and Plan: Stable this morning, 130s sys Monitor blood pressure. Resume home antihypertensive medications once off NPO status PRN hydralazine with parameters (7) Urinary retention: Code(s): R33.9 - Retention of urine, unspecified Status: Chronic Assessment and Plan: Continue Tamsulosin when off NPO status (8) ASB (asymptomatic bacteriuria): Code(s): R82.71 - Bacteriuria Status: Acute Assessment and Plan: Urine Culture growing 50-100k of klebsiella oxytoca ESBL sensitive to Zosyn which patient is already on. 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
[2020-02-06 15:08] VITALS: BP 123/69; PULSE 81; RESP 16; TEMP 36.4; O2SAT 97
[2020-02-06] MEDS: FUROSEMIDE INJ 40 MG/4 ML VIAL 20 MG IV PUSH (16:19)
[2020-02-06] MEDS: DEXTROSE 5% 1,000 ML 1,000 ML 50 ML IV CONT (17:50)
[2020-02-06 20:54] VITALS: BP 116/57; PULSE 86; RESP 20; TEMP 36.5; O2SAT 98
[2020-02-06] MEDS: QUEtiapine FUMARATE 25 MG TABLET PO (20:59)
[2020-02-07 05:33] LABS: Basophils Absolute Auto 0.1 K/mm3 (0.0-0.1); Basophils Percent Auto 0.5 % (0.2-1.2); Eosinophils Absolute Auto 0.2 K/mm3 (0-0.3); Eosinophils Percent Auto 1.7 % (0-4.4); Hematocrit 29.1 % (42.0-52.0); Hemoglobin 9.5 g/dL (14.0-18.0); Immature Granulocyte Absolute 0.13 K/mm3 (0.00-0.031); Immature Granulocyte Percent A 1.1 % (0-0.5); Lymphocytes Absolute Auto 1.35 K/mm3 (0.9-3.2); Lymphocytes Percent Auto 11.1 % (18.3-44.2); Mean Corpuscular HGB Conc 32.6 g/dl (32-36); Mean Corpuscular Hemoglobin 28.4 pg (26-34); Mean Corpuscular Volume 86.9 fl (80-100); Mean Platelet Volume 11.1 fl (7.4-10.4); Monocytes Percent Auto 7.8 % (2.6-8.5); Neutrophils Absolute Auto 9.5 K/mm3 (1.3-6.7); Neutrophils Percent Auto 77.8 % (45.5-73.1); Platelet Count Result 277 k/mm3 (150-375); Red Blood Count 3.35 M/mm3 (4.6-6.20); Red Cell Distribution Width 14.9 % (11.5-14.5); White Blood Count 12.2 K/mm3 (4.5-10.0)
[2020-02-07 05:35] VITALS: BP 128/55; PULSE 95; RESP 20; TEMP 37.2; O2SAT 97
[2020-02-07] MEDS: LORAZEPAM INJ 2 MG/ML VIAL 0.5 MG IV PUSH (05:44)
[2020-02-07 05:55] LABS: Blood Urea Nitrogen 13 mg/dL (9-20); Calcium 7.3 mg/dL (8.4-10.2); Carbon Dioxide 21 mmol/L (22-30); Chloride 109 mmol/L (98-107); Estimated CRCL calculation 26 ml/min; Estimated Glomerular Filt Rate 53; Glucose 123 mg/dL (75-110); Potassium 3.4 mmol/L (3.4-5.0); Sodium 133 mmol/L (137-145)
--- NOTE | 2020-02-07 07:40 | PM.PNGS ---
Progress Note: A&P Assessment and Plan (1) Free intraperitoneal air: Code(s): K66.8 - Other specified disorders of peritoneum Status: Acute Assessment and Plan: more conversant this morning. Continues to have good bowel sounds although he is not eating very much. Will advance to soft, minced and moist, diet. White blood cell count noted to be higher today. Patient has significant left lower lobe pleural effusion and infiltrate. Am concerned he may be developing pneumonia. Continue IV Zosyn for now. If concerns regarding intra-abdominal cause for leukocytosis, would get CT scan. 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 Answers questions. Abdomen feels about the same. Reports the discomfort in the abdomen is in the left upper quadrant. Review of Systems Review of Systems: All systems reviewed & are unremarkable except as noted in HPI and below ( HPI) Exam GI: Inspection: normal to inspection, non-distended and scar GI Palp: Yes Soft to palpation and Yes Tenderness to palpation present (GI) ( mild left upper quadrant) Auscultation: normal bowel sounds Objective Data Vital Signs Vital Signs: Vital Signs - 24 hr 02/06/20 15:08 02/06/20 20:54 02/07/20 05:35 Temperature 36.4 C 36.5 C 37.2 C Pulse Rate 81 86 95 Respiratory Rate 16 20 20 Blood Pressure 123/69 116/57 L 128/55 L Pulse Oximetry 97 98 97 Intake/Output Intake/Output: Intake & Output 02/04/20 02/05/20 02/06/20 02/07/20 23:59 23:59 23:59 23:59 Intake Total 2192 1325 2636 250 Output Total 100 150 Balance 2192 1325 2536 100 Meds/Results Medications: Active Medications Generic Name Dose Route Start Last Admin Trade Name Freq PRN Reason Stop Dose Admin Amlodipine Besylate 10 mg 01/31/20 21:00 01/31/20 20:48 Norvasc PO Not Given HS ESTHELA Lipase/Protease/Amylase 2 cap 01/31/20 12:00 02/01/20 17:[address] 12,000 Units Capsule PO Not Given TIDWM ESTHELA Enoxaparin Sodium 30 mg 02/02/20 09:00 02/06/20 08:22 Lovenox SUB-Q 30 mg DAILY ESTHELA Administration Fenofibrate 160 mg 02/01/20 09:00 Fenofibrate PO DAILY ESTHELA Hydralazine HCl 10 mg 01/31/20 20:30 Apresoline Hcl Inj IV PUSH Q8H PRN Blood Pressure - High>160/80 Dextrose 1,000 mls @ 50 mls/hr 02/02/20 07:50 02/06/20 17:50 Dextrose 5% 1,000 Ml IV CONT 50 mls/hr .Q20H ESTHELA Administration Piperacillin Sod/Tazobactam Sod 2.25 gm in 50 mls @ 100 mls/hr 02/05/20 12:00 02/07/20 06:15 Zosyn 2.25 Gm/D5w 50 Ml IVPB Infused Q6HR ESTHELA Infusion Acetaminophen 650 mg in 65 mls @ 260 mls/hr 02/06/20 16:24 02/06/20 18:09 Ofirmev 650 Mg Ivpb IVPB 02/07/20 16:25 Infused Q6H PRN Infusion Pain Rated 4-6 Lorazepam 0.5 mg 01/31/20 21:40 02/07/20 05:44 Ativan Inj IV PUSH 0.5 mg Q4H PRN Administration Anxiety Miconazole Nitrate 1 applic 02/04/20 11:55 02/06/20
--- NOTE | 2020-02-07 07:46 | WPDGIPROGNO ---
Progress Note: A&P Additional Plan Patient alert this morning. Not very oriented. Bouts of confusion at and agitation noted at night. Physical exam patient remains afebrile. Passed bowel movement this morning. Tolerated liquid diet. HEENT exam is anicteric. Lungs are clear. Heart without murmur. Abdomen bowel sounds are present normoactive. Soft and mild epigastric tenderness persists. (Similar to baseline). No longer on fentanyl. IV Tylenol has been given intermittently. Labs reveal WBC 12.2 this morning. KUB resume reveals persistent free air. Impression 1. Perforated viscus. Clinically improving. IV antibiotics continue. Diet as per surgery. Patient currently tolerating diet adequately. Clinically ileus has resolved. 2. 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 Pancreatic insufficiency likely period when diet tolerated will resume pancreatic enzymes. 3. Anastomotic ulcer. Benign histology. Plan is to continue Protonix 40 mg p.o. b.i.d.. Avoid nonsteroidal anti-inflammatory agents. 4. Dementia. Subjective Date/time seen: 02/07/20 07:46 Objective Data Vital Signs Vital Signs: Vital Signs - 24 hr 02/06/20 15:08 02/06/20 20:54 02/07/20 05:35 Temperature 36.4 C 36.5 C 37.2 C Pulse Rate 81 86 95 Respiratory Rate 16 20 20 Blood Pressure 123/69 116/57 L 128/55 L Pulse Oximetry 97 98 97 Intake/Output Intake/Output: Intake & Output 02/04/20 02/05/20 02/06/20 02/07/20 23:59 23:59 23:59 23:59 Intake Total 2192 1325 2636 250 Output Total 100 150 Balance 2192 1325 2536 100 Meds/Results Medications: Active Medications Generic Name Dose Route Start Last Admin Trade Name Freq PRN Reason Stop Dose Admin Amlodipine Besylate 10 mg 01/31/20 21:00 01/31/20 20:48 Norvasc PO Not Given HS ESTHELA Lipase/Protease/Amylase 2 cap 01/31/20 12:00 02/01/20 17:27 Sushila Fernandez 12,000 Units Capsule PO Not Given TIDWM ESTHELA Enoxaparin Sodium 30 mg 02/02/20 09:00 02/06/20 08:22 Lovenox SUB-Q 30 mg DAILY ESTHELA Administration Fenofibrate 160 mg 02/01/20 09:00 Fenofibrate PO DAILY ESTHELA Hydralazine HCl 10 mg 01/31/20 20:30 Apresoline Hcl Inj IV PUSH Q8H PRN Blood Pressure - High>160/80 Dextrose 1,000 mls @ 50 mls/hr 02/02/20 07:50 02/06/20 17:50 Dextrose 5% 1,000 Ml IV CONT 50 mls/hr .Q20H ESTHELA Administration Piperacillin Sod/Tazobactam Sod 2.25 gm in 50 mls @ 100 mls/hr 02/05/20 12:00 02/07/20 06:15 Zosyn 2.25 Gm/D5w 50 Ml IVPB Infused Q6HR ESTHELA Infusion Acetaminophen 650 mg in 65 mls @ 260 mls/hr 02/06/20 16:24 02/06/20 18:09 Ofirmev 650 Mg Ivpb IVPB 02/07/20 16:25 Infused Q6H PRN Infusion Pain Rated 4-6 Lorazepam 0.5 mg 01/31/20 21:40 02/07/20 05:44 Ativan Inj IV PUSH 0.5 mg Q4H PRN Administration Anxiety Miconazole Nitrate 1 applic 02/04/20 11:55 02/06/20 20:59 Miconazole Nitrate 2% Cream TOPICAL 1 applic Q12HR ESTHELA Administration Ondansetron HCl 4 mg 01/31/20 00:08 Zofran Inj IV PUSH Q4H PRN Nausea Pantoprazole Sodium 40 mg 01/31/20 21:00 02/06/20 20:59 Protonix Iv IV PUSH 40 mg Q12HR ESTHELA Administration Quetiapine Fumarate 25 mg 01/31/20 21:00 02/06/20 20:59 Seroquel PO 25 mg HS ESTHELA Administration Radiology Results: ITS Impressions Abdomen/Pelvis CT 01/30/20 21:17 IMPRESSION: 1. Mild thickening of the colon at the splenic flexure with pericolonic inflammation. There is adjacent wall thickening and surrounding inflammatory change of the Nik limb immediately distal to the gastrojejunal anastomosis. These findings are most likely infectious, inflammatory or malignant. No significant change dating back to 11/30/2019. Abdomen X-Ray 02/05/20 07:02 IMPRESSION: 1. Persistently dilated loops of small bowel, consistent with adynamic ileus versus partial obstruction. 2. Free intraperitoneal gas without c
[2020-02-07] MEDS: ENOXAPARIN 30 MG/0.3 ML SYRINGE SUB-Q (09:14)
[2020-02-07] MEDS: MICONAZOLE NITRATE 2% CREAM 30 GM TUBE 1 APPLIC TOPICAL ×2 (09:14→21:05)
[2020-02-07] MEDS: PANTOPRAZOLE SODIUM IV 40 MG VIAL IV PUSH ×2 (09:14→21:05)
--- NOTE | 2020-02-07 09:54 | PCPTNOTE ---
Patient's therapy treatment frequency increased from OD 2-3x/wk to OD 5-7x/wk due to patient demonstrating improved tolerance and voluntary participation in physical therapy. Virgie Neal, PT, DPT
--- NOTE | 2020-02-07 11:22 | PCOTNOTE ---
Attempted to see patient this am, however patient just finished with PT. Per physical therapy patient did not fully cooperate and was back to bed and stopped responding to cues.
--- NOTE | 2020-02-07 11:33 | PCNFU ---
Nutrition Follow-Up Complete: Underweight as related to Gastritis/Ulcer as evidenced by BMI:16.8 Goal: Adequate Intake of at least 75% of meal/supplements Pt current nutrition is Soft and Bite sized, Level 6 . Nutrition recommendation: Agree Last recorded weight is 47.1 kg. Bowel Motility:+BM 02/05 Labs Reviewed:Na 133,GFR 53,BUN 21,Glu 123 Meds Noted:Lovenox,Protonix Additional Notes: Spoke with nursing today for nutrition follow up due to COVID 19 precautions. Patient refused Breakfast meal today. 02/05 Dinner meal-Cream soup, Jello, Sherbert, Pudding, Crystal light, Grape juice and 7 up-30% reported. Diet supplements remain Ensure Enlive TID for an for an additional 350 kcals and 20 gms of protein. PO intake is encouraged. Monitoring: RD will monitor every 3 days.
[2020-02-07 11:46] LABS: Hematocrit 30.2 % (42.0-52.0); Hemoglobin 9.8 g/dL (14.0-18.0); Mean Corpuscular HGB Conc 32.5 g/dl (32-36); Mean Corpuscular Hemoglobin 28.6 pg (26-34); Mean Platelet Volume 10.5 fl (7.4-10.4); Platelet Count Result 294 k/mm3 (150-375); Red Blood Count 3.43 M/mm3 (4.6-6.20); Red Cell Distribution Width 14.8 % (11.5-14.5); White Blood Count 11.2 K/mm3 (4.5-10.0)
--- NOTE | 2020-02-07 12:33 | PM.IMPN ---
Progress Note: A&P Assessment and Plan (1) Leukocytosis: Code(s): D72.829 - Elevated white blood cell count, unspecified Status: Acute Assessment and Plan: Patient had slight increase in leukocytosis this morning at 11,200 with elevated neutrophils. The patients CXR from today showed Stable moderate-sized left pleural effusion. Improved airspace opacities at left lung base, consistent with atelectasis versus pneumonia. Free intraperitoneal gas again seen. The patient is not having any respiratory symptoms at all, normal oxygenation, afebrile, nontachycardic, and laying completely flat this morning not in any acute distress. He denies chest pain, shortness of breath or cough. I believe his pleural effusion is from his IV fluids he has received since admission. He is reporting more abdominal pain since starting to eat, and wonder if the intraperitoneal gas is increasing when compairing the imaging from today and a few days ago. Consider Abd CT if continued leukocytosis in the morning. (2) Free intraperitoneal air: Code(s): K66.8 - Other specified disorders of peritoneum Status: Acute Assessment and Plan: Perforated Viscus. Repeat KUB yesterday showed Persistently dilated loops of small bowel, consistent with adynamic ileus versus partial obstruction. Free intraperitoneal gas without change. EGD per Dr. Abel earlier in stay; reveals acute gastrojejunal cratered ulcers; no signs of bleeding. Dr. Abel evaluated the patient today and recommended broad-spectrum antibiotic coverage, PPI and once eating well recommended start calfate. General Surgery consulted by GI for possible perforation and recommended continuing conservative management and he believes from the KUB from 02/04 showed the perforation has sealed. GI and Surgery advanced diet to soft diet and he has been eating about 30%. Will monitor how he tolerates it. Continue on Zosyn IV (Day #7) Continue pain control as needed. Limit narcotics if possible due to dementia Continue monitoring patients symptoms and appreciate recommendations from GI and surgery. (3) Acute on chronic renal failure: Qualifiers: Acute renal failure type: unspecified Chronic kidney disease stage: stage 3 (moderate) Qualified Code(s): N17.9 - Acute kidney failure, unspecified; N18.3 - Chronic kidney disease, stage 3 (moderate) Code(s): N17.9 - Acute kidney failure, unspecified; N18.9 - Chronic kidney disease, unspecified Status: Acute Assessment and Plan: Cr 1.30 this morning, improved and appears to be at baseline. Discontinue light IV fluids since he has been eating better. Monitor renal function. Avoid nephrotoxic agents, renally dose medications. 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 (5) Moderate sized pleural effusion: Code(s): J90 - Pleural effusion, not elsewhere classified Status: Acute Assessment and Plan: Moderate left sided pleural effusion Patient had been receiving IV fluid hydration while NPO to prevent dehydration, he most likely received to much IV fluids and developed a pleural effusion. His COURTNEY is now improving with the IV fluid hydration. I have him a dose of IV Lasix 20 mg yesterday without any worsening COURTNEY. Repeat CXR today showed stable Moderate Pleural effusions. Will give another IV Lasix 20 mg to see if this improves the effusion. The patient is otherwise resting 97% on room air, normal respirations, today he was laying completely flat in bed and not in any
[2020-02-07] MEDS: POTASSIUM CHLORIDE 20 MEQ PACKET (FOR LIQUID) 40 MEQ PO (12:45)
[2020-02-07] MEDS: DEXTROSE 5% 1,000 ML 1,000 ML 50 ML IV CONT (12:45)
[2020-02-07] MEDS: FUROSEMIDE INJ 40 MG/4 ML VIAL 20 MG IV PUSH (13:09)
[2020-02-07 14:04] LABS: Add Urine Microscopic? YES; Appearance Urine Clear (Clear); Bacteria Urine Trace /hpf; Bilirubin Urine Negative (Negative); Blood Urine 1+ (Negative); Color Urine Straw (Yellow); Glucose Urine UA Negative (Negative); Ketones Urine Negative (Negative); Leukocyte Esterase Ur 3+ LEU/UL (Negative); Nitrate Urine Negative (Negative); Protein Urine Negative (Negative); Specific Grav Ur 1.009 (1.001-1.035); Squamous Epithelial Cell Urine Occasional /hpf (Few); Urobilinogen Urine Negative mg/dL (<2.0)
[2020-02-07 14:26] VITALS: BP 143/83; PULSE 54; RESP 16; TEMP 36.7; O2SAT 96
[2020-02-07] MEDS: QUEtiapine FUMARATE 25 MG TABLET PO (21:05)
[2020-02-07 21:18] VITALS: BP 105/67; PULSE 69; RESP 20; TEMP 37.3; O2SAT 96
[2020-02-08 04:25] VITALS: BP 106/55; PULSE 69; RESP 18; TEMP 37.2; O2SAT 95
[2020-02-08 05:40] LABS: Basophils Percent Auto 0.2 % (0.2-1.2); Eosinophils Absolute Auto 0.2 K/mm3 (0-0.3); Eosinophils Percent Auto 1.5 % (0-4.4); Hematocrit 26.6 % (42.0-52.0); Hemoglobin 8.9 g/dL (14.0-18.0); Immature Granulocyte Absolute 0.11 K/mm3 (0.00-0.031); Immature Granulocyte Percent A 0.9 % (0-0.5); Lymphocytes Absolute Auto 1.27 K/mm3 (0.9-3.2); Lymphocytes Percent Auto 10.3 % (18.3-44.2); Mean Corpuscular HGB Conc 33.5 g/dl (32-36); Mean Corpuscular Hemoglobin 28.7 pg (26-34); Mean Corpuscular Volume 85.8 fl (80-100); Mean Platelet Volume 10.4 fl (7.4-10.4); Monocytes Absolute Auto 0.7 K/mm3 (0.1-0.6); Monocytes Percent Auto 5.7 % (2.6-8.5); Neutrophils Percent Auto 81.4 % (45.5-73.1); Platelet Count Result 325 k/mm3 (150-375); Red Cell Distribution Width 14.6 % (11.5-14.5); White Blood Count 12.3 K/mm3 (4.5-10.0)
[2020-02-08 05:56] LABS: Blood Urea Nitrogen 15 mg/dL (9-20); Calcium 7.2 mg/dL (8.4-10.2); Carbon Dioxide 23 mmol/L (22-30); Chloride 109 mmol/L (98-107); Estimated CRCL calculation 22 ml/min; Estimated Glomerular Filt Rate 45; Glucose 99 mg/dL (75-110); Magnesium 1.9 mg/dL (1.6-2.3); Potassium 3.2 mmol/L (3.4-5.0); Sodium 136 mmol/L (137-145)
--- NOTE | 2020-02-08 07:32 | WPDGIPROGNO ---
Progress Note: A&P Additional Plan Patient alert and comfortable this morning. He denies abdominal pain. Tolerating diet. Physical exam reveals him to be alert. Vital signs stable he is afebrile. HEENT exam reveals him to be anicteric. Lungs are clear. Heart without murmur. Abdomen bowel sounds are present soft nontender no masses evident at this time. Labs reveal WBC 12.3, hemoglobin 8.9, hematocrit 26.6. Impression 1. 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 Poorly healing ulcers. Histology benign. Plan is to keep patient on proton pump inhibitors. Avoid nonsteroidal anti-inflammatory agents. 2. Recent free air of the abdomen. [place] to have perforation of this ulcer. Improving with conservative management. Patient completing course of antibiotics. Surgery following conservatively. 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 Patient may have a component of pancreatic insufficiency. Will resume pancreatic enzymes when tolerating diet. 4. Dementia. Subjective Date/time seen: 02/08/20 07:32 Objective Data Vital Signs Vital Signs: Vital Signs - 24 hr 02/07/20 14:26 02/07/20 21:18 02/08/20 04:25 Temperature 36.7 C 37.3 C 37.2 C Pulse Rate 54 L 69 69 Respiratory Rate 16 20 18 Blood Pressure 143/83 H 105/67 106/55 L Pulse Oximetry 96 96 95 Intake/Output Intake/Output: Intake & Output 02/05/20 02/06/20 02/07/20 02/08/20 23:59 23:59 23:59 23:59 Intake Total 1325 2636 1455 275 Output Total 100 150 Balance 1325 2536 1305 275 Meds/Results Medications: Active Medications Generic Name Dose Route Start Last Admin Trade Name Freq PRN Reason Stop Dose Admin Amlodipine Besylate 10 mg 01/31/20 21:00 01/31/20 20:48 Norvasc PO Not Given HS ESTHELA Lipase/Protease/Amylase 2 cap 01/31/20 12:00 02/01/20 17:27 Sushila Fernandez 12,000 Units Capsule PO Not Given TIDWM ESTHELA Enoxaparin Sodium 30 mg 02/02/20 09:00 02/07/20 09:14 Lovenox SUB-Q 30 mg DAILY [facility] Administration Fenofibrate 160 mg 02/01/20 09:00 Fenofibrate PO DAILY ESTHELA Hydralazine HCl 10 mg 01/31/20 20:30 Apresoline Hcl Inj IV PUSH Q8H PRN Blood Pressure - High>160/80 Piperacillin Sod/Tazobactam Sod 2.25 gm in 50 mls @ 100 mls/hr 02/05/20 12:00 02/08/20 05:35 Zosyn 2.25 Gm/D5w 50 Ml IVPB Infused Q6HR ESTHELA Infusion Miconazole Nitrate 1 applic 02/04/20 11:55 02/07/20 21:05 Miconazole Nitrate 2% Cream TOPICAL 1 applic Q12HR ESTHELA Administration Ondansetron HCl 4 mg 01/31/20 00:08 Zofran Inj IV PUSH Q4H PRN Nausea Pantoprazole Sodium 40 mg 01/31/20 21:00 02/07/20 21:05 Protonix Iv IV PUSH 40 mg Q12HR ESTHELA Administration Quetiapine Fumarate 25 mg 01/31/20 21:00 02/07/20 21:05 Seroquel PO 25 mg HS ESTHELA Administration Radiology Results: ITS Impressions Abdomen/Pelvis CT 01/30/20 21:17 IMPRESSION: 1. Mild thickening of the colon at the splenic flexure with pericolonic inflammation. There is adjacent wall thickening and surrounding inflammatory change of the Nik limb immediately distal to the gastrojejunal anastomosis. These findings are most likely infectious, inflammatory or malignant. No significant change dating back to 11/30/2019. Abdomen X-Ray 02/05/20 07:02 IMPRESSION: 1. Persistently dilated loops of small bowel, consistent with adynamic ileus versus partial obstruction. 2. Free intraperitoneal gas without change. Chest X-Ray 02/07/20 06:53 IMPRESSION: 1. Stable moderate-sized left pleural effusion. 2. Improved airspace opacities at left lung base, consistent with atelectasis versus pneumonia. 3. Free intraperitoneal gas again seen. Head CT 02/07/20 15:21 IMPRESSION: 1. No acute intracranial abnormality. 2: Chronic right parietal infarction. 3: Chronic age-related findings. Cervical Spine CT 02/07/20 15:25 IMPRESSION: 1. No acute abnorma
[2020-02-08] MEDS: PANTOPRAZOLE SODIUM IV 40 MG VIAL IV PUSH ×2 (08:57→20:00)
[2020-02-08] MEDS: ENOXAPARIN 30 MG/0.3 ML SYRINGE SUB-Q (08:57)
[2020-02-08] MEDS: MICONAZOLE NITRATE 2% CREAM 30 GM TUBE 1 APPLIC TOPICAL ×2 (08:57→20:00)
[2020-02-08 09:16] LABS: Hematocrit 28.1 % (42.0-52.0); Hemoglobin 9.4 g/dL (14.0-18.0); Mean Corpuscular HGB Conc 33.5 g/dl (32-36); Mean Corpuscular Hemoglobin 28.9 pg (26-34); Mean Corpuscular Volume 86.5 fl (80-100); Mean Platelet Volume 10.3 fl (7.4-10.4); Platelet Count Result 340 k/mm3 (150-375); Red Blood Count 3.25 M/mm3 (4.6-6.20); Red Cell Distribution Width 14.7 % (11.5-14.5); White Blood Count 13.3 K/mm3 (4.5-10.0)
--- NOTE | 2020-02-08 13:06 | PM.PNGS ---
Progress Note: A&P Assessment and Plan (1) Free intraperitoneal air: Code(s): K66.8 - Other specified disorders of peritoneum Status: Acute Assessment and Plan: likely secondary to perforated marginal ulcer, contained, exam benign, cont abx, denise diet s issue, +bowel fxn, WBC trending down, home soon if cont to do well Subjective Subjective Date/Time Seen: 02/08/20 13:06 Interval history: Pt alert and awake in bed today. Pt denies any abd pain. Pt denise soft diet s issue. Pt reports normal bowel fxn. Review of Systems Constitutional: Constitutional: Reports fatigue and Denies weakness Cardiovascular: Cardiovascular: Denies chest pain Respiratory: Respiratory: Denies dyspnea Gastrointestinal: Gastrointestinal: Denies abdominal pain, Denies bloating, Denies constipation, Denies diarrhea, Denies nausea and Denies vomiting Exam Const: General: no acute distress Resp: Auscultation: clear to auscultation bilaterally Cardio: Rate: regular rate Rhythm: regular rhythm GI: Other: SNTND, +bs Objective Data Vital Signs Vital Signs: Vital Signs - 24 hr 02/07/20 14:26 02/07/20 21:18 02/08/20 04:25 Temperature 36.7 C 37.3 C 37.2 C Pulse Rate 54 L 69 69 Respiratory Rate 16 20 18 Blood Pressure 143/83 H 105/67 106/55 L Pulse Oximetry 96 96 95 Intake/Output Intake/Output: Intake & Output 02/05/20 02/06/20 02/07/20 02/08/20 23:59 23:59 23:59 23:59 Intake Total 1325 2636 1455 275 Output Total 100 150 Balance 1325 2536 1305 275 Meds/Results Medications: Active Medications Generic Name Dose Route Start Last Admin Trade Name Freq PRN Reason Stop Dose Admin Amlodipine Besylate 10 mg 01/31/20 21:00 01/31/20 20:48 Norvasc PO Not Given HS ESTHELA Lipase/Protease/Amylase 2 cap 01/31/20 12:00 02/01/20 17:27 Creleona Fernandez 12,000 Units Capsule PO Not Given TIDWM ESTHELA Enoxaparin Sodium 30 mg 02/02/20 09:00 02/08/20 08:57 Lovenox SUB-Q 30 mg DAILY ESTHELA Administration Fenofibrate 160 mg 02/01/20 09:00 Fenofibrate PO DAILY ESTHELA Hydralazine HCl 10 mg 01/31/20 20:30 Apresoline Hcl Inj IV PUSH Q8H PRN Blood Pressure - High>160/80 Piperacillin Sod/Tazobactam Sod 2.25 gm in 50 mls @ 100 mls/hr 02/05/20 12:00 02/08/20 12:01 Zosyn 2.25 Gm/D5w 50 Ml IVPB 100 mls/hr Q6HR ESTHELA Administration Miconazole Nitrate 1 applic 02/04/20 11:55 02/08/20 08:57 Miconazole Nitrate 2% Cream TOPICAL 1 applic Q12HR ESTHELA Administration Ondansetron HCl 4 mg 01/31/20 00:08 Zofran Inj IV PUSH Q4H PRN Nausea Pantoprazole Sodium 40 mg 01/31/20 21:00 02/08/20 08:57 Protonix Iv IV PUSH 40 mg Q12HR ESTHELA Administration Quetiapine Fumarate 25 mg 01/31/20 21:00 02/07/20 21:05 Seroquel PO 25 mg HS ESTHELA Administration Radiology Results: ITS Impressions Abdomen/Pelvis CT 01/30/20 21:17 IMPRESSION: 1. Mild thickening of the colon at the splenic flexure with pericolonic inflammation. There is adjacent wall thickening and surrounding inflammatory change of the Nik limb immediately distal to the gastrojejunal anastomosis. These findings are most likely infectious, inflammatory or malignant. No significant change dating back to 11/30/2019. Abdomen X-Ray 02/05/20 07:02 IMPRESSION: 1. Persistently dilated loops of small bowel, consistent with adynamic ileus versus partial obstruction. 2. Free intraperitoneal gas without change. Chest X-Ray 02/07/20 06:53 IMPRESSION: 1. Stable moderate-sized left pleural effusion. 2. Improved airspace opacities at left lung base, consistent with atelectasis versus pneumonia. 3. Free intraperitoneal gas again seen. Head CT 02/07/20 15:21 IMPRESSION: 1. No acute intracranial abnormality. 2: Chronic right parietal infarction. 3: Chronic age-related findings. Cervical Spine CT 02/07/20 15:25 IMPRESSION: 1. No acute abnormality of the cervical spine. Ch
[2020-02-08 14:00] VITALS: BP 118/64; PULSE 80; RESP 16; TEMP 36.9; O2SAT 97
[2020-02-08 14:01] LABS: Hematocrit 27.8 % (42.0-52.0)
--- NOTE | 2020-02-08 14:08 | PCOTNOTE ---
Attempted to see patient for skilled OT, however, patient refused to participate in any functional ADL or mobility task or UB exercise at this time. Patient not seen for OT this date.
--- NOTE | 2020-02-08 14:39 | PM.IMPN ---
Progress Note: A&P Assessment and Plan (1) Abscess: Code(s): L02.91 - Cutaneous abscess, unspecified Status: Acute Assessment and Plan: Due to the patient's increasing leukocytosis and low-grade fevers since yesterday I decided to repeat a CT scan. CT Chest/Abd/Pelvis showed large air/fluid collection below left hemidiaphragm, contiguous to spleen, stomach consistent with abscess. Would be amenable to percutaneous catheter placement but given the large amount of gas, could still freely communicate with gastric ulcerated perforation if not undergone surgery. Scattered foci of free intraperitoneal, retroperitoneal gas. Moderate left pleural effusion, adjacent multisegmental atelectasis. I discussed with the Surgeon who recommends ordering a CT Guided Percutaneous Drain to be placed. Continue monitoring Leukocytosis and vitals. (2) Leukocytosis: Code(s): D72.829 - Elevated white blood cell count, unspecified Status: Acute Assessment and Plan: Patient had slight increase in leukocytosis this morning at 11,200 with elevated neutrophils. The patients CXR from today showed Stable moderate-sized left pleural effusion. Improved airspace opacities at left lung base, consistent with atelectasis versus pneumonia. Free intraperitoneal gas again seen. The patient is not having any respiratory symptoms at all, normal oxygenation, afebrile, nontachycardic, and laying completely flat this morning not in any acute distress. He denies chest pain, shortness of breath or cough. I believe his pleural effusion is from his IV fluids he has received since admission. He is reporting more abdominal pain since starting to eat, and wonder if the intraperitoneal gas is increasing when compairing the imaging from today and a few days ago. CT Chest/Abd/Pelvis showed large abscess to stomach from perforation. This is the site of infection and leukocytosis. Continue monitoring daily. (3) Free intraperitoneal air: Code(s): K66.8 - Other specified disorders of peritoneum Status: Acute Assessment and Plan: Perforated Viscus Repeat KUB yesterday showed Persistently dilated loops of small bowel, consistent with adynamic ileus versus partial obstruction. Free intraperitoneal gas without change. EGD per Dr. Abel earlier in stay; reveals acute gastrojejunal cratered ulcers; no signs of bleeding. Dr. Abel evaluated the patient today and recommended broad-spectrum antibiotic coverage, PPI and once eating well recommended start calfate. General Surgery consulted by GI for possible perforation and recommended continuing conservative management and he believes from the KUB from 02/04 showed the perforation has sealed. GI and Surgery advanced diet to soft diet and he has been eating about 30%. Will monitor how he tolerates it. Today found to have large abscess. Continue on Zosyn IV (Day #8) Continue pain control as needed. Limit narcotics if possible due to dementia Continue monitoring patients symptoms and appreciate recommendations from GI and surgery. (4) Acute on chronic renal failure: Qualifiers: Acute renal failure type: unspecified Chronic kidney disease stage: stage 3 (moderate) Qualified Code(s): N17.9 - Acute kidney failure, unspecified; N18.3 - Chronic kidney disease, stage 3 (moderate) Code(s): N17.9 - Acute kidney failure, unspecified; N18.9 - Chronic kidney disease, unspecified Status: Acute Assessment and Plan: Cr 1.50 this morning, slightly elevated, but I had administered a dose of IV lasix yesterday which was most likely the cause. Discontinue light IV fluids since he has been eating better. Monitor renal function. Avoid nephrotoxic agents, renally dose medications. (5) Jejunal ulcer:
[2020-02-08] MEDS: LORAZEPAM INJ 2 MG/ML VIAL 0.5 MG IV PUSH ×2 (15:56→23:41)
[2020-02-08 16:00] LABS: INR 1.7; Prothrombin Time 19.8 Seconds (11.1-14.7)
--- NOTE | 2020-02-08 18:14 | PC.NURSE ---
Dr Alvarez called and notified about patients drainage(400ml of greenish-yellow liquid) from percutaneous drain. Doctor ordered to keep patient NPO at this time.
[2020-02-08 19:47] VITALS: BP 120/58; PULSE 76; RESP 18; TEMP 37.3; O2SAT 96
[2020-02-08] MEDS: QUEtiapine FUMARATE 25 MG TABLET PO (20:00)
[2020-02-09 02:50] VITALS: BP 135/74; PULSE 84; RESP 14; TEMP 36.6; O2SAT 97
[2020-02-09] MEDS: MORPHINE SULFATE 2 MG/ML INJ IV PUSH ×3 (02:54→14:01)
[2020-02-09] MEDS: PANTOPRAZOLE SODIUM IV 40 MG VIAL IV PUSH ×2 (08:30→20:49)
[2020-02-09] MEDS: ENOXAPARIN 30 MG/0.3 ML SYRINGE SUB-Q (08:31)
[2020-02-09] MEDS: MICONAZOLE NITRATE 2% CREAM 30 GM TUBE 1 APPLIC TOPICAL ×2 (08:31→20:52)
--- NOTE | 2020-02-09 08:44 | WPDGIPROGNO ---
Progress Note: A&P Additional Plan Patient more confused this morning. Had percutaneous drain of left upper quadrant abscess yesterday. Physical exam reveals him to be alert. He is afebrile. Anicteric. Lungs are clear. Heart without murmur. Abdomen is soft. Minimal tenderness at this time. Significant drainage from left upper quadrant percutaneous drain noted. Labs reveal WBC 13.3. Hemoglobin 9. Hematocrit 27.8, MCV 86. Impression 1. Intra-abdominal abscess. After recent perforated ulcer. Patient currently on antibiotics. Now in p.o. with external drain in place. Surgery following as well. 2. IPMN. Status post pancreatic head resection with Whipple's procedure. 3. Anastomotic ulcer. Benign histology. Patient remains on Protonix. 4. Dementia. Plan to continue antibiotics. External drain for intra-abdominal abscess. Surgery will manage the external drain at this time. Subjective Date/time seen: 02/09/20 08:44 Objective Data Vital Signs Vital Signs: Vital Signs - 24 hr 02/08/20 14:00 02/08/20 19:47 02/09/20 02:50 Temperature 36.9 C 37.3 C 36.6 C Pulse Rate 80 76 84 Respiratory Rate 16 18 14 Blood Pressure 118/64 120/58 L 135/74 Pulse Oximetry 97 96 97 Intake/Output Intake/Output: Intake & Output 02/06/20 02/07/20 02/08/20 02/09/20 23:59 23:59 23:59 23:59 Intake Total 2636 1455 925 50 Output Total 100 150 400 140 Balance 2536 1305 525 -90 Meds/Results Medications: Active Medications Generic Name Dose Route Start Last Admin Trade Name Freq PRN Reason Stop Dose Admin Amlodipine Besylate 10 mg 01/31/20 21:00 01/31/20 20:48 Norvasc PO Not Given HS ESTHELA Lipase/Protease/Amylase 2 cap 01/31/20 12:00 02/01/20 17:27 Sushila Fernandez 12,000 Units Capsule PO Not Given TIDWM ESTHELA Enoxaparin Sodium 30 mg 02/02/20 09:00 02/09/20 08:31 Lovenox SUB-Q 30 mg DAILY ESTHELA Administration Fenofibrate 160 mg 02/01/20 09:00 Fenofibrate PO DAILY ESTHELA Hydralazine HCl 10 mg 01/31/20 20:30 Apresoline Hcl Inj IV PUSH Q8H PRN Blood Pressure - High>160/80 Piperacillin Sod/Tazobactam Sod 2.25 gm in 50 mls @ 100 mls/hr 02/05/20 12:00 02/09/20 05:31 Zosyn 2.25 Gm/D5w 50 Ml IVPB Infused Q6HR ESTHELA Infusion Dextrose/Lactated Ringer's 1,000 mls @ 50 mls/hr 02/09/20 08:40 Dextrose 5%/Lactated Ringers IV CONT .Q20H ESTHELA Lorazepam 0.5 mg 02/08/20 14:45 02/08/20 23:41 Ativan Inj IV PUSH 0.5 mg Q6H PRN Administration Anxiety Miconazole Nitrate 1 applic 02/04/20 11:55 02/09/20 08:31 Miconazole Nitrate 2% Cream TOPICAL 1 applic Q12HR ESTHELA Administration Morphine Sulfate 2 mg 02/08/20 14:45 02/09/20 08:36 Morphine Sulfate Inj IV PUSH 2 mg Q4H PRN Administration Pain Rated 7-10 Ondansetron HCl 4 mg 01/31/20 00:08 Zofran Inj IV PUSH Q4H PRN Nausea Pantoprazole Sodium 40 mg 01/31/20 21:00 02/09/20 08:30 Protonix Iv IV PUSH 40 mg Q12HR ESTHELA Administration Quetiapine Fumarate 25 mg 01/31/20 21:00 02/08/20 20:00 Seroquel PO 25 mg HS ESTHELA Administration Radiology Results: ITS Impressions Abdomen/Pelvis CT 01/30/20 21:17 IMPRESSION: 1. Mild thickening of the colon at the splenic flexure with pericolonic inflammation. There is adjacent wall thickening and surrounding inflammatory change of the Nik limb immediately distal to the gastrojejunal anastomosis. These findings are most likely infectious, inflammatory or malignant. No significant change dating back to 11/30/2019. Abdomen X-Ray 02/05/20 07:02 IMPRESSION: 1. Persistently dilated loops of small bowel, consistent with adynamic ileus versus partial obstruction. 2. Free intraperitoneal gas without change. Chest X-Ray 02/07/20 06:53 IMPRESSION: 1. Stable moderate-sized left pleural effusion. 2. Improved airspace opacities at left lung base, consistent with atelectasis versus pneumonia. 3. Free intraperi
[2020-02-09 09:36] LABS: Hematocrit 30.2 % (42.0-52.0); Hemoglobin 9.6 g/dL (14.0-18.0); Mean Corpuscular HGB Conc 31.8 g/dl (32-36); Mean Corpuscular Hemoglobin 28.3 pg (26-34); Mean Corpuscular Volume 89.1 fl (80-100); Mean Platelet Volume 10.1 fl (7.4-10.4); Platelet Count Result 433 k/mm3 (150-375); Red Blood Count 3.39 M/mm3 (4.6-6.20); Red Cell Distribution Width 14.7 % (11.5-14.5); White Blood Count 15.7 K/mm3 (4.5-10.0)
[2020-02-09] MEDS: DEXTROSE 5%/LACTATED RINGERS 1,000 ML 50 ML IV CONT (09:40)
[2020-02-09 09:49] LABS: Blood Urea Nitrogen 15 mg/dL (9-20); Calcium 7.6 mg/dL (8.4-10.2); Carbon Dioxide 25 mmol/L (22-30); Chloride 110 mmol/L (98-107); Estimated CRCL calculation 22 ml/min; Estimated Glomerular Filt Rate 45; Glucose 79 mg/dL (75-110); Potassium 3.7 mmol/L (3.4-5.0); Sodium 139 mmol/L (137-145)
--- NOTE | 2020-02-09 10:06 | PM.IMPN ---
Progress Note: A&P Assessment and Plan (1) Abscess: Code(s): L02.91 - Cutaneous abscess, unspecified Status: Acute Assessment and Plan: Due to the patient's increasing leukocytosis and low-grade fevers since yesterday I decided to repeat a CT scan. CT Chest/Abd/Pelvis showed large air/fluid collection below left hemidiaphragm, contiguous to spleen, stomach consistent with abscess. Would be amenable to percutaneous catheter placement but given the large amount of gas, could still freely communicate with gastric ulcerated perforation if not undergone surgery. Scattered foci of free intraperitoneal, retroperitoneal gas. Moderate left pleural effusion, adjacent multisegmental atelectasis. Perc Drain Placed to large abscess 02/08/2020. Patient continues to be NPO at this time, started on IV fluids Dextrose/LR. I discussed with the Surgeon who agrees with NPO status and IV fluids, they may be starting TPN tomorrow. Continue monitoring Leukocytosis and vitals. (2) Leukocytosis: Code(s): D72.829 - Elevated white blood cell count, unspecified Status: Acute Assessment and Plan: Patient had increase in leukocytosis this morning at 15,700. The patients CXR from today showed Stable moderate-sized left pleural effusion. Improved airspace opacities at left lung base, consistent with atelectasis versus pneumonia. Free intraperitoneal gas again seen. The patient is not having any respiratory symptoms at all, normal oxygenation, afebrile, nontachycardic, and laying completely flat this morning not in any acute distress. He denies chest pain, shortness of breath or cough. I believe his pleural effusion is from his IV fluids he has received since admission. CT Chest/Abd/Pelvis showed large abscess to stomach from perforation. Will continue monitoring Leukocytosis and IV Zosyn, per surgery. Continue monitoring daily. (3) Free intraperitoneal air: Code(s): K66.8 - Other specified disorders of peritoneum Status: Acute Assessment and Plan: Perforated Viscus Repeat KUB yesterday showed Persistently dilated loops of small bowel, consistent with adynamic ileus versus partial obstruction. Free intraperitoneal gas without change. EGD per Dr. Abel earlier in stay; reveals acute gastrojejunal cratered ulcers; no signs of bleeding. Dr. Abel evaluated the patient today and recommended broad-spectrum antibiotic coverage, PPI and once eating well recommended start calfate. General Surgery consulted and they will be monitoring the patients Per Drain for his Abscess Continue on Zosyn IV (Day #9) Continue pain control as needed. Limit narcotics if possible due to dementia Continue monitoring patients symptoms and appreciate recommendations from GI and surgery. (4) Acute on chronic renal failure: Qualifiers: Acute renal failure type: unspecified Chronic kidney disease stage: stage 3 (moderate) Qualified Code(s): N17.9 - Acute kidney failure, unspecified; N18.3 - Chronic kidney disease, stage 3 (moderate) Code(s): N17.9 - Acute kidney failure, unspecified; N18.9 - Chronic kidney disease, unspecified Status: Acute Assessment and Plan: Cr 1.50 this morning, stable. Restarted light IV fluids since he is NPO Monitor renal function. Avoid nephrotoxic agents, renally dose medications. 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 (6) Moderate sized pleural effusion: Code(s): J90 - Pleural effusion, not
--- NOTE | 2020-02-09 10:35 | PM.PNGS ---
Progress Note: A&P Assessment and Plan (1) Perforated ulcer: Code(s): K27.5 - Chronic or unspecified peptic ulcer, site unspecified, with perforation Status: Acute Assessment and Plan: s/p perc drainage contained collection in lesser sac, cont NPO, abx for now, plan for UGI tomorrow to eval leak, may need TPN if leak still present (2) Abscess: Code(s): L02.91 - Cutaneous abscess, unspecified Status: Acute Assessment and Plan: s/p perc drain, cont abx, monitor drain output Subjective Subjective Date/Time Seen: 02/09/20 10:35 Interval history: Pt reports no complaints. Pt reports some mild discomfort c drain ambrose c movt. Pt denies any upper abd pain, N/V. Review of Systems Constitutional: Constitutional: Denies chills and Reports fatigue Cardiovascular: Cardiovascular: Denies chest pain Respiratory: Respiratory: Denies dyspnea Gastrointestinal: Gastrointestinal: Reports abdominal pain, Denies constipation, Denies diarrhea, Denies nausea and Denies vomiting Exam Const: General: no acute distress Resp: Auscultation: clear to auscultation bilaterally Cardio: Rate: regular rate Rhythm: regular rhythm GI: Other: S, sl dist, mild TTP LUQ drain site, drain c bilious/serous output Objective Data Vital Signs Vital Signs: Vital Signs - 24 hr 02/08/20 14:00 02/08/20 19:47 02/09/20 02:50 Temperature 36.9 C 37.3 C 36.6 C Pulse Rate 80 76 84 Respiratory Rate 16 18 14 Blood Pressure 118/64 120/58 L 135/74 Pulse Oximetry 97 96 97 Intake/Output Intake/Output: Intake & Output 02/06/20 02/07/20 02/08/20 02/09/20 23:59 23:59 23:59 23:59 Intake Total 2636 1455 925 50 Output Total 100 150 400 140 Balance 2536 1305 525 -90 Meds/Results Medications: Active Medications Generic Name Dose Route Start Last Admin Trade Name Freq PRN Reason Stop Dose Admin Amlodipine Besylate 10 mg 01/31/20 21:00 01/31/20 20:48 Norvasc PO Not Given HS [facility] Lipase/Protease/Amylase 2 cap 01/31/20 12:00 02/01/20 17:[address] 12,000 Units Capsule PO Not Given TIDWM [facility] Enoxaparin Sodium 30 mg 02/02/20 09:00 02/09/20 08:31 Lovenox SUB-Q 30 mg DAILY [facility] Administration Fenofibrate 160 mg 02/01/20 09:00 Fenofibrate PO DAILY [facility] Hydralazine HCl 10 mg 01/31/20 20:30 Apresoline Hcl Inj IV PUSH Q8H PRN Blood Pressure - High>160/80 Piperacillin Sod/Tazobactam Sod 2.25 gm in 50 mls @ 100 mls/hr 02/05/20 12:00 02/09/20 05:31 Zosyn 2.25 Gm/D5w 50 Ml IVPB Infused Q6HR [facility] Infusion Dextrose/Lactated Ringer's 1,000 mls @ 50 mls/hr 02/09/20 08:40 02/09/20 09:40 Dextrose 5%/Lactated Ringers IV CONT 50 mls/hr .Q20H [facility] Administration Lorazepam 0.5 mg 02/08/20 14:45 02/08/20 23:41 Ativan Inj IV PUSH 0.5 mg Q6H PRN Administration Anxiety Miconazole Nitrate 1 applic 02/04/20 11:55 02/09/20 08:31 Miconazole Nitrate 2% Cream TOPICAL 1 applic Q12HR [facility] Administration Morphine Sulfate 2 mg 02/08/20 14:45 02/09/20 08:36 Morphine Sulfate Inj IV PUSH 2 mg Q4H PRN Administration Pain Rated 7-10 Ondansetron HCl 4 mg 01/31/20 00:08 Zofran Inj IV PUSH Q4H PRN Nausea Pantoprazole Sodium 40 mg 01/31/20 21:00 02/09/20 08:30 Protonix Iv IV PUSH 40 mg Q12HR [facility] Administration Quetiapine Fumarate 25 mg 01/31/20 21:00 02/08/20 20:00 Seroquel PO 25 mg HS [facility] Administration Radiology Results: ITS Impressions Abdomen/Pelvis CT 01/30/20 21:17 IMPRESSION: 1. Mild thickening of the colon at the splenic flexure with pericolonic inflammation. There is adjacent wall thickening and surrounding inflammatory change of the Nik limb immediately distal to the gastrojejunal anastomosis. These findings are most likely infectious, inflammatory or malignant. No significant change dating back to 11/30/2019. Abdomen X-Ray 02/05/20 07:02 IMPRESSION: 1. Cyndi
--- NOTE | 2020-02-09 12:46 | PCOTNOTE ---
Attempted to see patient for skilled OT, however, upon entering room patient stated he was tired and declined to participate in any functional ADL or mobility task. Patient not seen for OT this date.
[2020-02-09] MEDS: QUEtiapine FUMARATE 25 MG TABLET PO (20:49)
[2020-02-09 21:11] VITALS: BP 112/49; PULSE 52; RESP 17; TEMP 36.9; O2SAT 94
[2020-02-10] MEDS: LORAZEPAM INJ 2 MG/ML VIAL 0.5 MG IV PUSH ×2 (01:39→19:42)
[2020-02-10 05:59] LABS: Hematocrit 27.5 % (42.0-52.0); Hemoglobin 8.7 g/dL (14.0-18.0); Mean Corpuscular HGB Conc 31.6 g/dl (32-36); Mean Corpuscular Hemoglobin 28.6 pg (26-34); Mean Corpuscular Volume 90.5 fl (80-100); Platelet Count Result 463 k/mm3 (150-375); Red Blood Count 3.04 M/mm3 (4.6-6.20); Red Cell Distribution Width 14.7 % (11.5-14.5); White Blood Count 12.7 K/mm3 (4.5-10.0)
[2020-02-10 06:07] LABS: Blood Urea Nitrogen 15 mg/dL (9-20); Calcium 7.5 mg/dL (8.4-10.2); Carbon Dioxide 27 mmol/L (22-30); Chloride 111 mmol/L (98-107); Estimated CRCL calculation 26 ml/min; Estimated Glomerular Filt Rate 53; Glucose 111 mg/dL (75-110); Potassium 3.7 mmol/L (3.4-5.0); Sodium 140 mmol/L (137-145)
[2020-02-10] MEDS: DEXTROSE 5%/LACTATED RINGERS 1,000 ML 50 ML IV CONT (06:10)
--- NOTE | 2020-02-10 07:34 | PM.PNGS ---
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 If has a large leak, will need to go to surgery to over sew and patch with omentum. Can also place a larger drain in the left upper quadrant abscess. As mentioned in previous notes, patient is high risk for this surgery due to his comorbid conditions and dementia. Will review Gastrografin study after completed today and make further plans. (2) Perforated ulcer: Code(s): K27.5 - Chronic or unspecified peptic ulcer, site unspecified, with perforation Status: Acute Assessment and Plan: Perforated marginal ulcer. Drain content suggest still is leaking. 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 (5) Dementia: Qualifiers: Dementia type: unspecified type Dementia behavioral disturbance: without behavioral disturbance Qualified Code(s): F03.90 - Unspecified dementia without behavioral disturbance Code(s): F03.90 - Unspecified dementia without behavioral disturbance Status: Chronic (6) Acute on chronic renal failure: Qualifiers: Acute renal failure type: unspecified Chronic kidney disease stage: stage 3 (moderate) Qualified Code(s): N17.9 - Acute kidney failure, unspecified; N18.3 - Chronic kidney disease, stage 3 (moderate) Code(s): N17.9 - Acute kidney failure, unspecified; N18.9 - Chronic kidney disease, unspecified Status: Acute Assessment and Plan: Creatinine improved Subjective Subjective Date/Time Seen: 02/10/20 07:34 Patient remains confused. Events of the weekend noted. Agree with percutaneous drainage of large left upper quadrant abscess. White blood cell count slightly better today. Review of Systems Review of Systems: ROS unobtainable: Yes unobtainable due to mental status Exam Const: General: comfortable, no acute distress, alert and awake Nutritional Appearance: thin Orientation/consciousness: confusion GI: Inspection: non-distended, scar and other ( Pigtail drain shows gastric content. 300 cc total drained yesterday.) GI Palp: Yes Soft to palpation and No Tenderness to palpation present (GI) Auscultation: Hypoactive bowel sounds present Objective Data Vital Signs Vital Signs: Vital Signs - 24 hr 02/09/20 21:11 Temperature 36.9 C Pulse Rate 52 L Respiratory Rate 17 Blood Pressure 112/49 L Pulse Oximetry 94 Intake/Output Intake/Output: Intake & Output 02/07/20 02/08/20 02/09/20 02/10/20 23:59 23:59 23:59 23:59 Intake Total 1455 021 135 8328 Output Total 150 400 340 550 Balance 1305 525 -190 550 Meds/Results Medications: Active Medications Generic Name Dose Route Start Last Admin Trade Name Freq PRN Reason Stop Dose Admin Amlodipine Besylate 10 mg 01/31/20 21:00 01/31/20 20:48 Norvasc PO Not Given HS [facility] Lipase/Protease/Amylase 2 cap 01/31/20 12:00 02/01/20 17:[address] 12,000 Units Capsule PO Not Given [facility] Enoxaparin Sodium 30 mg 02/02/20 09:00 02/09/20 08:31 Lovenox SUB-Q 30 mg DAILY [facility] Administration Fenofibrate 160 mg 02/01/20 09:00 Fenofibrate PO DAILY [facility] Hydralazine HCl 10 mg 01/31/20 20:30 Apresoline Hcl Inj IV PUSH Q8H PRN Blood Pressure - High>160/80 Piperacillin Sod/Tazobactam Sod 2.25 gm in 50 mls @ 100 mls/hr 02/05/20 12:00 02/10/20 06:41 Zosyn 2.25 Gm/D5w 50 Ml IVPB Infused Q6HR [facility] Infusion Dextrose/Lactated Ringer's 1,000 mls @ 50 mls/hr 02/09/20 08:40 02/10/20 06:10 Dextrose 5%/Lactated Ringers IV CONT 50 mls/hr .Q20H [facility] Administration Lorazepam 0.5 mg 02/08/20 14:45 02/10/20 01:
[2020-02-10] MEDS: MICONAZOLE NITRATE 2% CREAM 30 GM TUBE 1 APPLIC TOPICAL ×2 (08:42→20:10)
[2020-02-10] MEDS: ENOXAPARIN 30 MG/0.3 ML SYRINGE SUB-Q (08:42)
[2020-02-10] MEDS: PANTOPRAZOLE SODIUM IV 40 MG VIAL IV PUSH ×2 (08:42→20:09)
--- NOTE | 2020-02-10 08:42 | WPDGIPROGNO ---
Progress Note: A&P Additional Plan Patient alert and comfortable this morning. Not well oriented. Remains afebrile. Lungs are clear. Abdomen is soft. Patient denies any significant pain at this time. Percutaneous drain in place noted. CT scan suggests large abscess in left upper quadrant. Free air persists. Impression 1. Perforated viscus. Likely related to ulcer. Intra-abdominal abscess identified on CT scan. Agree with Gastrografin upper GI period and potential surgery. 2. 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 3. Anastomotic ulcer noted at area previous surgery. Perforation suspected from this location. 4. Dementia. Plan agree with surgical plan for Gastrografin upper GI. Continued antibiotics. Patient remain NPO. Patient may ultimately require surgery. Subjective Date/time seen: 02/10/20 08:42 Objective Data Vital Signs Vital Signs: Vital Signs - 24 hr 02/09/20 21:11 Temperature 36.9 C Pulse Rate 52 L Respiratory Rate 17 Blood Pressure 112/49 L Pulse Oximetry 94 Intake/Output Intake/Output: Intake & Output 02/07/20 02/08/20 02/09/20 02/10/20 23:59 23:59 23:59 23:59 Intake Total 1455 975 149 1965 Output Total 150 400 340 550 Balance 1305 525 -190 550 Meds/Results Medications: Active Medications Generic Name Dose Route Start Last Admin Trade Name Freq PRN Reason Stop Dose Admin Amlodipine Besylate 10 mg 01/31/20 21:00 01/31/20 20:48 Norvasc PO Not Given HS [facility] Lipase/Protease/Amylase 2 cap 01/31/20 12:00 02/01/20 17:27 Sushila Fernandez 12,000 Units Capsule PO Not Given TIDWM [facility] Enoxaparin Sodium 30 mg 02/02/20 09:00 02/09/20 08:31 Lovenox SUB-Q 30 mg DAILY [facility] Administration Fenofibrate 160 mg 02/01/20 09:00 Fenofibrate PO DAILY [facility] Hydralazine HCl 10 mg 01/31/20 20:30 Apresoline Hcl Inj IV PUSH Q8H PRN Blood Pressure - High>160/80 Piperacillin Sod/Tazobactam Sod 2.25 gm in 50 mls @ 100 mls/hr 02/05/20 12:00 02/10/20 06:41 Zosyn 2.25 Gm/D5w 50 Ml IVPB Infused Q6HR [facility] Infusion Dextrose/Lactated Ringer's 1,000 mls @ 50 mls/hr 02/09/20 08:40 02/10/20 06:10 Dextrose 5%/Lactated Ringers IV CONT 50 mls/hr .Q20H [facility] Administration Lorazepam 0.5 mg 02/08/20 14:45 02/10/20 01:39 Ativan Inj IV PUSH 0.5 mg Q6H PRN Administration Anxiety Miconazole Nitrate 1 applic 02/04/20 11:55 02/09/20 20:52 Miconazole Nitrate 2% Cream TOPICAL 1 applic Q12HR [facility] Administration Morphine Sulfate 2 mg 02/08/20 14:45 02/09/20 14:01 Morphine Sulfate Inj IV PUSH 2 mg Q4H PRN Administration Pain Rated 7-10 Ondansetron HCl 4 mg 01/31/20 00:08 Zofran Inj IV PUSH Q4H PRN Nausea Pantoprazole Sodium 40 mg 01/31/20 21:00 02/09/20 20:49 Protonix Iv IV PUSH 40 mg Q12HR [facility] Administration Quetiapine Fumarate 25 mg 01/31/20 21:00 02/09/20 20:49 Seroquel PO 25 mg HS [facility] Administration Radiology Results: ITS Impressions Abdomen/Pelvis CT 01/30/20 21:17 IMPRESSION: 1. Mild thickening of the colon at the splenic flexure with pericolonic inflammation. There is adjacent wall thickening and surrounding inflammatory change of the Nik limb immediately distal to the gastrojejunal anastomosis. These findings are most likely infectious, inflammatory or malignant. No significant change dating back to 11/30/2019. Abdomen X-Ray 02/05/20 07:02 IMPRESSION: 1. Persistently dilated loops of small bowel, consistent with adynamic ileus versus partial obstruction. 2. Free intraperitoneal gas without change. Chest X-Ray 02/07/20 06:53 IMPRESSION: 1. Stable moderate-sized left pleural effusion. 2. Improved airspace opacities at left lung base, consistent with atelectasis versus pneumonia. 3. Free intraperitoneal gas again seen. Head CT 02/07/20 15:21 IMPRESSION: 1. No acute intracranial abnormality. 2: Chronic
--- NOTE | 2020-02-10 09:33 | PCOTNOTE ---
Patient unavailable to be seen for OT this morning due to in procedure. Will attempt later today if time permits.
--- NOTE | 2020-02-10 10:48 | PM.IMPN ---
Progress Note: A&P Assessment and Plan (1) Abscess: Code(s): L02.91 - Cutaneous abscess, unspecified Status: Acute Assessment and Plan: Due to the patient's increasing leukocytosis and low-grade fevers since yesterday I decided to repeat a CT scan. CT Chest/Abd/Pelvis showed large air/fluid collection below left hemidiaphragm, contiguous to spleen, stomach consistent with abscess. Would be amenable to percutaneous catheter placement but given the large amount of gas, could still freely communicate with gastric ulcerated perforation if not undergone surgery. Scattered foci of free intraperitoneal, retroperitoneal gas. Moderate left pleural effusion, adjacent multisegmental atelectasis. Perc Drain Placed to large abscess 02/08/2020. Patient continues to be NPO at this time, started on IV fluids Dextrose/LR. NG tube in place as well per surgery. Surgeon ordered Gastrographin to be completed today and if it shows large perforation still, they will consider surgery on the patient even though he is high risk vs conservative management. Continue monitoring patients symptoms, leukocytosis and vitals. Surgery input is greatly appreciated. (2) Leukocytosis: Code(s): D72.829 - Elevated white blood cell count, unspecified Status: Acute Assessment and Plan: Patient had improvement of leukocytosis this morning at 12,700. Most likely from large abscess from perforation. Will continue monitoring Leukocytosis and IV Zosyn, per surgery. Continue monitoring daily. (3) Free intraperitoneal air: Code(s): K66.8 - Other specified disorders of peritoneum Status: Acute Assessment and Plan: Perforated Viscus Repeat KUB yesterday showed Persistently dilated loops of small bowel, consistent with adynamic ileus versus partial obstruction. Free intraperitoneal gas without change. EGD per Dr. Abel earlier in stay; reveals acute gastrojejunal cratered ulcers; no signs of bleeding. Dr. Abel evaluated the patient today and recommended broad-spectrum antibiotic coverage, PPI and once eating well recommended start calfate. General Surgery consulted and they will be monitoring the patients Per Drain for his Abscess Continue on Zosyn IV (Day #10) Continue pain control as needed. Limit narcotics if possible due to dementia Continue monitoring patients symptoms and appreciate recommendations from GI and surgery. (4) Acute on chronic renal failure: Qualifiers: Acute renal failure type: unspecified Chronic kidney disease stage: stage 3 (moderate) Qualified Code(s): N17.9 - Acute kidney failure, unspecified; N18.3 - Chronic kidney disease, stage 3 (moderate) Code(s): N17.9 - Acute kidney failure, unspecified; N18.9 - Chronic kidney disease, unspecified Status: Acute Assessment and Plan: Cr 1.30 this morning, improved Restarted light IV fluids since he is NPO Monitor renal function. Avoid nephrotoxic agents, renally dose medications. 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 (6) Moderate sized pleural effusion: Code(s): J90 - Pleural effusion, not elsewhere classified Status: Acute Assessment and Plan: Moderate left sided pleural effusion Patient had been receiving IV fluid hydration while NPO to prevent dehydration, he most likely received to much IV fluids and developed a pleural effusion. The patient is otherwise resting comfortably on room air, normal respirations, today he was la
[2020-02-10 11:00] VITALS: BP 132/77; PULSE 92; RESP 16; TEMP 36.3; O2SAT 97
--- NOTE | 2020-02-10 11:26 | PCNFU ---
Nutrition Follow-Up Complete: Underweight as related to Gastritis/Ulcer as evidenced by BMI: 16.8 Goal: Adequate Intake of at least 75% of meal/supplements limited progress towards goal. Pt current nutrition is NPO x 3. Nutrition recommendation:Agree at this time. Last recorded weight is 47.1 kg. Bowel Motility: +BM reported 02/08 Labs Reviewed: Glu 111,GFR 53,Hct 27.5,Hgb 8.7 Meds Noted: Dextrose 1000 ml at 50 ml/hr, Protonix, Lovenox, Ativan Additional Notes: Patient NPO for upper GI today. He is current with NGT. MD reporting that surgeon ordered Gastrographin to be completed today and if it shows large perforation still, they will consider surgery. If patient remains NPO x 5 days would recommend to start Parental Nutrition. Monitoring: RD will monitor every 3 days.
--- NOTE | 2020-02-10 12:13 | ECG_ITS ---
Measurements Intervals [place] Rate: 94 P: 51 NH: 155 QRS: 6 QRSD: 113 T: 51 QT: 377 QTc: 473 Interpretive Statements SINUS RHYTHM FREQUENT VENTRICULAR PREMATURE COMPLEXES INCOMPLETE RIGHT BUNDLE BRANCH BLOCK BORDERLINE T WAVE ABNORMALITY- INFERIOR LEADS BASELINE ARTIFACT- I, II, AVR, AVL, AVF, V1 ABNORMAL ECG Electronically Signed On 02-10-2020 13:25:49 CDT by Lamberto Martinez D.O.
[2020-02-10 14:15] VITALS: BP 124/63; PULSE 70; RESP 14; TEMP 36.1; O2SAT 97
--- NOTE | 2020-02-10 14:29 | PCPTNOTE ---
Patient refused treatment this session. Pt states I have been here long enough!
--- NOTE | 2020-02-10 15:06 | PCOTNOTE ---
Addendum entered by LY Resendiz 02/10/20 15:07: Rest of previous note: Patient stated he was cold, pulled covers back over himself, and declined to participate any further. Will continue plan of care tomorrow, 02/11/20. Original Note: Attempted to work with patient, patient unable to maintain participation despite Max cueing. Patient stated he was c
[2020-02-10 19:50] VITALS: BP 124/51; PULSE 93; RESP 16; TEMP 36.6; O2SAT 98
[2020-02-10 20:00] VITALS: PULSE 97
[2020-02-10] MEDS: FLUCONAZOLE 100 MG/NACL 50 ML 100 MG/50 ML BTL 50 MG IVPB (21:22)
[2020-02-10] MEDS: MORPHINE SULFATE 2 MG/ML INJ IV PUSH (22:47)
[2020-02-11] VITALS (27 sets, daily range): BP systolic 48–148; BP diastolic 34–92; PULSE 80–125; RESP 12–18; TEMP 33.9–36.6; O2SAT 97–100
[2020-02-11] MEDS: DEXTROSE 5%/LACTATED RINGERS 1,000 ML 50 ML IV CONT (05:11)
[2020-02-11 06:53] LABS: Hematocrit 31.7 % (42.0-52.0); Hemoglobin 9.8 g/dL (14.0-18.0); Mean Corpuscular HGB Conc 30.9 g/dl (32-36); Mean Corpuscular Volume 90.6 fl (80-100); Mean Platelet Volume 9.7 fl (7.4-10.4); Platelet Count Result 543 k/mm3 (150-375); Red Cell Distribution Width 14.6 % (11.5-14.5); White Blood Count 12.2 K/mm3 (4.5-10.0)
[2020-02-11 07:03] LABS: Blood Urea Nitrogen 10 mg/dL (9-20); Calcium 7.6 mg/dL (8.4-10.2); Carbon Dioxide 28 mmol/L (22-30); Chloride 113 mmol/L (98-107); Estimated CRCL calculation 26 ml/min; Estimated Glomerular Filt Rate 53; Glucose 109 mg/dL (75-110); Magnesium 2.1 mg/dL (1.6-2.3); Potassium 3.1 mmol/L (3.4-5.0); Sodium 144 mmol/L (137-145)
--- NOTE | 2020-02-11 08:06 | WPDGIPROGNO ---
Progress Note: A&P Additional Plan Patient alert, not well oriented. physical exam reveals abdomen to be soft. Only modest discomfort noted. External drain in place. Impression 1. Intra-abdominal abscess. Status post perforated viscus. Surgical exploration anticipated today. Patient to continue antibiotics. External drain until surgery. 2. IPMN. Status post Whipple's resection. Anastomotic ulcerations identified. Benign histology identified. Likely is location for perforation. 3. Anastomotic ulcer. Patient remain on PPI. Surgical exploration today. Continue to avoid nonsteroidal anti-inflammatory agents. 4. Dementia. Patient's mental status noted to fluctuate. History is difficult. Plan is to continue antibiotics. Surgical exploration anticipated today. Subjective Date/time seen: 02/11/20 08:06 Objective Data Vital Signs Vital Signs: Vital Signs - 24 hr 02/10/20 11:00 02/10/20 14:15 02/10/20 19:50 Temperature 36.3 C L 36.1 C L 36.6 C Pulse Rate 92 70 93 Respiratory Rate 16 14 16 Blood Pressure 132/77 124/63 124/51 L Pulse Oximetry 97 97 98 02/10/20 20:00 02/11/20 00:00 02/11/20 04:00 Temperature Pulse Rate 97 88 81 Respiratory Rate Blood Pressure Pulse Oximetry 02/11/20 04:54 02/11/20 08:00 Temperature 36.6 C Pulse Rate 90 100 Respiratory Rate 15 Blood Pressure 148/61 H Pulse Oximetry 97 Intake/Output Intake/Output: Intake & Output 02/08/20 02/09/20 02/10/20 02/11/20 23:59 23:59 23:59 23:59 Intake Total 118 768 4593 1050 Output Total 400 340 925 250 Balance 525 -190 375 800 Meds/Results Medications: Active Medications Generic Name Dose Route Start Last Admin Trade Name Freq PRN Reason Stop Dose Admin Amlodipine Besylate 10 mg 01/31/20 21:00 01/31/20 20:48 Norvasc PO Not Given HS [facility] Lipase/Protease/Amylase 2 cap 01/31/20 12:00 02/01/20 17:27 Sushila Fernandez 12,000 Units Capsule PO Not Given TIDWM [facility] Enoxaparin Sodium 30 mg 02/02/20 09:00 02/10/20 08:42 Lovenox SUB-Q 30 mg DAILY [facility] Administration Fenofibrate 160 mg 02/01/20 09:00 Fenofibrate PO DAILY [facility] Hydralazine HCl 10 mg 01/31/20 20:30 Apresoline Hcl Inj IV PUSH Q8H PRN Blood Pressure - High>160/80 Piperacillin Sod/Tazobactam Sod 2.25 gm in 50 mls @ 100 mls/hr 02/05/20 12:00 02/11/20 05:41 Zosyn 2.25 Gm/D5w 50 Ml IVPB Infused Q6HR [facility] Infusion Dextrose/Lactated Ringer's 1,000 mls @ 50 mls/hr 02/09/20 08:40 02/11/20 05:41 Dextrose 5%/Lactated Ringers IV CONT 50 mls/hr .Q20H [facility] Infusion Fluconazole/Dextrose 100 mg in 50 mls @ 50 mls/hr 02/10/20 21:00 02/10/20 22:22 Diflucan 100 Mg/Nacl 50 Ml IVPB Infused HS [facility] Infusion Potassium Chloride 500 mls @ 125 mls/hr 02/11/20 08:30 Kcl 40 Meq/D5w 500 Ml Peripheral IVPB 02/11/20 12:29 ONCE ONE Lorazepam 0.5 mg 02/08/20 14:45 02/10/20 19:42 Ativan Inj IV PUSH 0.5 mg Q6H PRN Administration Anxiety Miconazole Nitrate 1 applic 02/04/20 11:55 02/10/20 20:10 Miconazole Nitrate 2% Cream TOPICAL 1 applic Q12HR [facility] Administration Morphine Sulfate 2 mg 02/08/20 14:45 02/10/20 22:47 Morphine Sulfate Inj IV PUSH 2 mg Q4H PRN Administration Pain Rated 7-10 Pantoprazole Sodium 40 mg 01/31/20 21:00 02/10/20 20:09 Protonix Iv IV PUSH 40 mg Q12HR [facility] Administration Promethazine HCl 12.5 mg 02/10/20 17:25 Phenergan Inj IV PUSH Q4H PRN Nausea And Vomiting Quetiapine Fumarate 25 mg 01/31/20 21:00 02/09/20 20:49 Seroquel PO 25 mg HS [facility] Administration Radiology Results: ITS Impressions Abdomen/Pelvis CT 01/30/20 21:17 IMPRESSION: 1. Mild thickening of the colon at the splenic flexure with pericolonic inflammation. There is adjacent wall thickening and surrounding inflammatory change of the Nik limb immediately distal to the gastrojejunal anastomosis. These
[2020-02-11] MEDS: PANTOPRAZOLE SODIUM IV 40 MG VIAL IV PUSH ×2 (08:34→23:18)
[2020-02-11] MEDS: MICONAZOLE NITRATE 2% CREAM 30 GM TUBE 1 APPLIC TOPICAL (08:34)
[2020-02-11] MEDS: ENOXAPARIN 30 MG/0.3 ML SYRINGE SUB-Q (08:53)
--- NOTE | 2020-02-11 13:00 | WPDINFPN2 ---
Progress Note: A&P Assessment and Plan (1) Abscess: Code(s): L02.91 - Cutaneous abscess, unspecified Status: Acute Assessment and Plan: LUQ abscess, polymicrobial REC PipTazo #12, FLuconazole #2. Optimized dosing. To OR. Subjective Date/time seen: 02/11/20 13:00 Objective Data Vital Signs Vital Signs: Vital Signs - 24 hr 02/10/20 14:15 02/10/20 19:50 02/10/20 20:00 Temperature 36.1 C L 36.6 C Pulse Rate 70 93 97 Respiratory Rate 14 16 Blood Pressure 124/63 124/51 L Pulse Oximetry 97 98 02/11/20 00:00 02/11/20 04:00 02/11/20 04:54 Temperature 36.6 C Pulse Rate 88 81 90 Respiratory Rate 15 Blood Pressure 148/61 H Pulse Oximetry 97 02/11/20 08:00 Temperature Pulse Rate 100 Respiratory Rate Blood Pressure Pulse Oximetry Intake/Output Intake/Output: Intake & Output 02/08/20 02/09/20 02/10/20 02/11/20 23:59 23:59 23:59 23:59 Intake Total 437 817 9817 1050 Output Total 400 340 925 250 Balance 525 -190 375 800 Meds/Results Medications: Active Medications Generic Name Dose Route Start Last Admin Trade Name Freq PRN Reason Stop Dose Admin Amlodipine Besylate 10 mg 01/31/20 21:00 01/31/20 20:48 Norvasc PO Not Given HS ESTHELA Lipase/Protease/Amylase 2 cap 01/31/20 12:00 02/01/20 17:27 Creleona Fernandez 12,000 Units Capsule PO Not Given TIDWM ESTHELA Enoxaparin Sodium 30 mg 02/02/20 09:00 02/11/20 08:53 Lovenox SUB-Q 30 mg DAILY ESTHELA Administration Fenofibrate 160 mg 02/01/20 09:00 Fenofibrate PO DAILY ESTHELA Hydralazine HCl 10 mg 01/31/20 20:30 Apresoline Hcl Inj IV PUSH Q8H PRN Blood Pressure - High>160/80 Piperacillin Sod/Tazobactam Sod 2.25 gm in 50 mls @ 100 mls/hr 02/05/20 12:00 02/11/20 05:41 Zosyn 2.25 Gm/D5w 50 Ml IVPB Infused Q6HR ESTHELA Infusion Dextrose/Lactated Ringer's 1,000 mls @ 50 mls/hr 02/09/20 08:40 02/11/20 05:41 Dextrose 5%/Lactated Ringers IV CONT 50 mls/hr .Q20H ESTHELA Infusion Fluconazole/Dextrose 100 mg in 50 mls @ 50 mls/hr 02/10/20 21:00 02/10/20 22:22 Diflucan 100 Mg/Nacl 50 Ml IVPB Infused HS ESTHELA Infusion Lorazepam 0.5 mg 02/08/20 14:45 02/10/20 19:42 Ativan Inj IV PUSH 0.5 mg Q6H PRN Administration Anxiety Miconazole Nitrate 1 applic 02/04/20 11:55 02/11/20 08:34 Miconazole Nitrate 2% Cream TOPICAL 1 applic Q12HR ESTHELA Administration Morphine Sulfate 2 mg 02/08/20 14:45 02/10/20 22:47 Morphine Sulfate Inj IV PUSH 2 mg Q4H PRN Administration Pain Rated 7-10 Pantoprazole Sodium 40 mg 01/31/20 21:00 02/11/20 08:34 Protonix Iv IV PUSH 40 mg Q12HR ESTHELA Administration Promethazine HCl 12.5 mg 02/10/20 17:25 Phenergan Inj IV PUSH Q4H PRN Nausea And Vomiting Quetiapine Fumarate 25 mg 01/31/20 21:00 02/09/20 20:49 Seroquel PO 25 mg HS ESTHLEA Administration Radiology Results: ITS Impressions Abdomen/Pelvis CT 01/30/20 21:17 IMPRESSION: 1. Mild thickening of the colon at the splenic flexure with pericolonic inflammation. There is adjacent wall thickening and surrounding inflammatory change of the Nik limb immediately distal to the gastrojejunal anastomosis. These findings are most likely infectious, inflammatory or malignant. No significant change dating back to 11/30/2019. Abdomen X-Ray 02/05/20 07:02 IMPRESSION: 1. Persistently dilated loops of small bowel, consistent with adynamic ileus versus partial obstruction. 2. Free intraperitoneal gas without change. Chest X-Ray 02/07/20 06:53 IMPRESSION: 1. Stable moderate-sized left pleural effusion. 2. Improved airspace opacities at left lung base, consistent with atelectasis versus pneumonia. 3. Free intraperitoneal gas again seen. Head CT 02/07/20 15:21 IMPRESSION: 1. No acute intracranial abnormality. 2: Chronic right parietal infarction. 3: Chronic age-related findings. Cervical Spine CT
--- NOTE | 2020-02-11 13:14 | CONS_ITS ---
This report was moved to the correct visit, [id number], on March 11, 2020. Original report was signed by Dr. Jimi Ernst on February 12, 2020 at 1117. DATE OF CONSULTATION: 02/11/2020 REASON FOR CONSULTATION: Abscess, left upper quadrant. HISTORY OF PRESENT ILLNESS: Mr. Tobar is an 84-year-old male with dementia. He cannot provide any comprehensive history. He was transported from [facility] on January 30 with 1-day of abdominal pain in the upper abdomen, not otherwise specified. He had no associated symptoms. Upon arrival here, he had CT scan, which showed a fluid collection in the left upper quadrant, which appear to abut his previous Whipple procedure. Here, he has been found to have anastomotic leak. At the jejunum, he has undergone upper endoscopy, which revealed ulcerations that appear benign. His pathology indicates acute on chronic mucosal inflammation with benign ulcer. He has been on piperacillin and tazobactam since admission. On February 07, he underwent CT-guided fluid drainage. Culture was collected and yesterday revealed budding yeast. He was started on fluconazole yesterday. Consultation requested today. No other events nor interventions. He is planned on operative intervention later today by Dr. Machuca. He denies any abdominal pain currently. ALLERGIES: NAPROXEN CAUSED RASH. MEDICATIONS: Home medication list. No immunosuppressants. No antibiotics. HABITS: Quarter pack of cigarettes per day and alcohol to excess. PAST MEDICAL HISTORY: In addition to the above, Whipple procedure for IPMN, cholecystectomy, previous UTI, urinary retention, GERD, hypertension, and chronic renal insufficiency. REVIEW OF SYSTEMS: 14-point review attempted, otherwise not obtainable from the patient due to dementia. FAMILY HISTORY: Pancreatic cancer, otherwise not pertinent to his present illness. SOCIAL HISTORY: He is listed as retired and has family locally, of course not present at the bedside. PHYSICAL EXAMINATION: GENERAL: This is a cachectic male who appears his actual age. No respiratory distress. VITAL SIGNS: Since arrival, he has been afebrile, 148/61, 90, 15, 97%. SKIN: Decreased turgor. No rashes. Warm and dry. No skin breakdown. EENT: Pupils are minimally reactive. No conjunctival injection. No icterus. Mucous membranes are well hydrated. No thrush. No ulcers. NECK: Without meningismus, mass, tracheal deviation. CHEST: Equal expansion. Normal AP diameter. LUNGS: Clear to auscultation on tidal respirations. CARDIAC: Regular rate and rhythm. No murmur or gallop. Pulses are 1+. ABDOMEN: He has a left upper quadrant drain in place with bilious material in the bag. No blood. He is diffusely tender without guarding. He has hypoactive bowel sounds. No masses. No organomegaly. EXTREMITIES: No clubbing, cyanosis, edema. He has marked distal muscle wasting. NEUROLOGIC: He is awake, responds to simple requests. Normal muscle tone. LABORATORY DATA: No blood cultures collected. Pathology as noted above. MRSA screen is negative. Fluid from the , no white cells, budding yeast with pseudohyphae seen. Cultures grown yeast to be identified. No anaerobes nor bacteria isolated. Urine specimen from admission with multiple organisms including Klebsiella oxytoca. His white blood cell count on admission was 9.4, erwin into the 12 range and normalized, and since the has been high, 12.2 today; hemoglobin 9.8, which is quite stable; platelets are 543. His hyponatremia is resolved. He has mild hypokalemia. BUN 10, creatinine 1.3 with admission creatinine as high as 2.2. Estimated GFR is 53. His liver function tests done most recently on the showed an albumin of 2.1, AST of 15, bilirubin normal. Urinalysis fr
--- NOTE | 2020-02-11 13:24 | PC.NURSE ---
Patient to OR per bed. Report to FADUMO Stanton.
[2020-02-11] MEDS: LACTATED RINGERS 1,000 ML 30 ML IV CONT (13:35)
--- NOTE | 2020-02-11 13:42 | PC.NURSE ---
1400 dose of Zosyn sent to surgery for administration.
--- NOTE | 2020-02-11 13:43 | PCPTNOTE ---
The patient treatment was not able to be completed on 02/11/2020 due to Pt in surgery. Will plan to continue treatment per plan of care.
--- NOTE | 2020-02-11 13:56 | WPDANESEFPP ---
Anes - Eval Final PreProcedure Day of Procedure 02/11/20 13:56 Patient weight: cachectic Heart: regular rate and rhythm Lungs: clear to auscultation Airway: Mallampati scale class II Neurological: confused Last oral intake: >/= 8 hours ASA classification: IV Emergent: yes Anesthetic plan: proceed Anesthesia type and monitoring: general ETT and standard monitoring Informed Consent: The patient's anesthetic plan and its attendant risks and benefits were discussed with the patient/family/POA. Questions were solicited and answers provided to the satisfaction of the patient/family/POA.
--- NOTE | 2020-02-11 14:17 | SUR.PREOP ---
1340-PT INCONTINENT IN ADULT DIAPER OF LIQUID STOOL, FULL CLEAN UP WITH SKIN CLEANSED AND DRY PRIOR TO APPLYING ADULT DIAPER.
--- NOTE | 2020-02-11 15:42 | SUR.OPER ---
CENTRAL LINE PLACEMENT START:1437, ABDOMINAL INCISION :1542
--- NOTE | 2020-02-11 17:24 | WPDURCON ---
Assessment and Plan Assessment and plan (1) Phimosis: Code(s): N47.1 - Phimosis Status: Acute Assessment and Plan: Intraoperative consult for severe phimosis and placement of a catheter. At the bedside I did a dorsal slit and placed a 16 F catheter without drainage, thereafter. Urology Consult Note HPI Date Seen: 02/11/20 Requesting Physician: Bacilio Machuca MD Primary Care Provider: Marcial Mccracken DO Consult Narrative Narrative: Isiah Tobar is a 84 year old male Who I was asked to see intraoperatively for placement of urethral catheter. The patient is scheduled to undergo exploratory laparotomy with possible over-sewing of the jejunal ulcer. I a.m. not familiar with this patient in a.m. not aware that he has any prior significant urological history. Review of Systems Review of Systems: ROS unobtainable: Yes unobtainable due to endotracheal tube Cardiovascular: Cardiovascular: Reports chest pain, Reports lightheadedness, Reports palpitations and Denies dyspnea Respiratory: Respiratory: Reports dyspnea Gastrointestinal: Gastrointestinal: Denies diarrhea, Denies nausea and Reports vomiting Genitourinary: Genitourinary: Reports hematuria and Reports dysuria Endocrine: Endocrine: Denies palpitations PMFSH Past Medical History Medical History Chronic renal failure Dementia Essential hypertension Gastroesophageal reflux disease IPMN (intraductal papillary mucinous neoplasm) Urinary retention UTI due to Klebsiella species Surgical History Surgical History History of cholecystectomy History of pancreatectomy History of resection of stomach S/P small bowel resection Family History Family History Mother Patient's mother is Family history of cardiovascular disease Family history of malignant neoplasm Sibling Patient's sister is Patient's brother is Family history of multiple sclerosis Family history of Alzheimer's disease Family history of pancreatic cancer Family history of lung cancer Social History Social History Social History: Patient currently smokes 6-8 cigarettes a day. 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 Smoking packs per day: 0.5 Smoking cigarettes per day: 10.0 Years smoked: 75 Smoking pack-years: 37.50 Smoking status: Light tobacco smoker Tobacco type: cigarettes Alcohol intake: former Substance use: never Gender identity (if verbalized by the patient): Male Spiritual care concerns: No Agree to blood products: Yes Meds Home Medications and Allergies Home Medications Medication Instructions Recorded Confirmed Type tamsulosin 0.4 mg capsule 0.4 mg PO DAILY #30 cap 09/26/19 01/31/20 Rx omega 3-ydt-qll-fish oil [Fish Oil] 1 cap PO QAM 11/29/19 01/31/20 History vitamin B complex 1 tablet PO DAILY 11/29/19 01/31/20 History sucralfate 1 gram tablet 1 gm PO TID #90 tablet 12/18/19 01/31/20 Rx benazepril 40 mg tablet 40 mg PO DAILY #90 tablet 01/13/20 01/31/20 Rx fenofibrate 160 mg tablet 160 mg PO DAILY #90 tablet 01/13/20 01/31/20 Rx ynamzv-rdianfjo-kyvdscq 1 cap PO TID #270 cap 01/13/20 01/31/20 Rx 25,000-79,000-105,000 unit capsule,delayed rel pantoprazole 40 mg tablet,delayed 40 mg PO Q12HR 30 Days #180 tablet 01/13/20 01/31/20 Rx release amlodipine 10 mg PO HS 01/31/20 01/31/20 History quetiapine 25 mg PO HS 01/31/20 01/31/20 History Allergies Allergy/AdvReac Type Severity Reaction Status Date / Time naproxen Allergy Unknown Rash Verified 01/30/20 20:15 Vital Signs Vital Signs - 24 hr 02/10/20 19:50 02/10/20 20:00 02/11/20 00:00 Temperature 98 F Pulse Rate 93
--- NOTE | 2020-02-11 17:28 | PM.PROC ---
Procedure Note - Detailed Date of procedure: 02/11/20 Pre-op diagnosis: acute on chronic renal failure/gastritis/colitis Post-op diagnosis: same Procedure performed: 1. Dorsal foreskin slit. 2. Placement of urethral catheter. Description of procedure: Saw the patient is an intraoperative consultation for placement of urethral catheter. This was difficult because of severe phimosis. I opted to do a simple dorsal slit which was performed by compressing tissue at the 12 o'clock position followed by a clean cut along the crushed tissue line. I was then able to expose the glans penis which was grossly normal. Placed a 16 F urethral catheter with drainage. Anesthesia: GLMA Surgeon: Timothy Lee MD Estimated blood loss (mL): 5 Drains: Yes (16F Barrios) Packing: No Pathology: none sent Complications: No immediate complications Condition: stable Disposition: PACU
--- NOTE | 2020-02-11 19:11 | SUR.OPER ---
ebl:250cc, urine:100cc
--- NOTE | 2020-02-11 19:50 | SUR.OPER ---
when drapes removed, large collection of clotted blood present to area under penis. new xeroform dressing with sam applied
--- NOTE | 2020-02-11 20:07 | PM.PROC ---
Procedure Note - Detailed Date of procedure: 02/11/20 Pre-op diagnosis: perforation jejunal ulcer, LUQ abscess Perforation jejunal ulcer, left upper quadrant abscess, inadequate venous access Post-op diagnosis: other ( jejunal perforation at gastrojejunostomy, left upper quadrant abscess, extensive adhesions, enterotomy, inadequate venous access) Procedure performed: placement right subclavian central venous line under fluoroscopy, repair perforation gastrojejunostomy, omentoplasty,drainage left upper quadrant abscess, repair enterotomy. Description of procedure: the patient was taken to surgery and induced into general anesthesia. We tried to place a Barrios catheter but the patient had a phimosis. was called for consultation and came to the room.. A dorsal slit procedure was performed and a Barrios catheter was placed. See ' note for details. Next the right subclavian and right neck areas were prepped with chlorhexidine and draped with full drapes and gown and gloves. Attempts were made to place a right subclavian central venous line. The guidewire would not thread. A right IJ central line was then attempted. The guidewire would not thread here either. Fluoroscopy was called to the room. . Using fluoroscopy, the right subclavian vein was able to be cannulated and a guidewire passed into the distal superior vena cava. Fluoroscopy was used to verify the position. The tract was dilated and a 16 cm triple-lumen central venous line was passed over the guidewire and into the distal superior vena cava. C-arm fluoroscopy was used to place the dilator and the central venous line. The guidewire was removed. The line was in good position. All ports aspirated blood and were flushed with heparin. The line was sutured securely to the skin. A sterile transparent dressing was then placed. We then removed these drapes and prep materials. The entire abdomen was prepped and draped. The old surgical scar was excised from the upper half of the old incision. It was discarded. Dissection was then carried through the midline fascia. However, despite difficult and meticulous dissection, I could not gain access to the peritoneal cavity due to the extensive adhesions of viscera to itself and to the anterior abdominal wall. Since I was in the area where the majority of the previous pancreatico duodenectomy had been performed, I decided to go ahead and excise more of the scar and extend the fascial incision into the lower abdomen. I excised most of the rest of the abdominal skin scar. Dissection was carefully carried out removing some of the abdominal content from under knee through the midline fascia and continue with the dissection down to just above the pubis. I then tried to gain access to the peritoneal cavity on both the right and the left side. The adhesions were extremely difficult and despite careful dissection and vigilance, an enterotomy did occur in right lower quadrant. This was due to the extreme and difficult degree of adhesions present. I temporarily closed this with interrupted 4 0 silk suture. I continued the dissection and eventually on the right side was able to gain access to the peritoneal cavity. The excitement was short lived however, as I could not extend this either cephalad or caudad around to the right side of the abdomen. Nonetheless, I was able to free all the right-sided adhesions to the anterior abdominal wall. I then went back to the loop of bowel which had been injured previously. Additional adhesiolysis was performed as I this loop of bowel from other loops and mesentery. Eventually enough of it was freed that I could remove the sutures and proceed with repair. I quarantined this area with laparotomy sponges. I then repaired the enterotomy in 2 layers. The inner layer was bidirectional running Gray sutures of 4 0 chromic. The outer layer was 4 0 silk Lembert sutures. The repair looked quite good. There
[2020-02-11] MEDS: SODIUM CHLORIDE 0.9% IV 1,000 ML 999 ML IV CONT (20:50)
[2020-02-11 21:22] LABS: Alveolar/Arterial O2 Gradient 92.6 mmHg; Base Excess ABG -10.7 mEq/l (+/-2.0); Carboxyhemoglobin 0.1 % THb (0-2.0); Fractional Inspired Oxygen 40 %; HCO3 ABG 15.6 mEq/l (22.0-26.0); Methemoglobin ABG 1.2 %THb (0-1.5); Oxygen Content ABG 5.4 %vol (16.0-22.0); Oxygen Saturation ABG 98.6 % (95.0-100.0); Oxyhemoglobin 95.8 % THb (90.0-100.0); PCO2 ABG 37.4 mmHg (35.0-45.0); PO2 ABG 149.6 mmHg (80.0-100.0); PO2 FiO2 Ratio Arterial Blood 3.74 %; Reduced Hemoglobin 2.9 %THb (0-5.0)
[2020-02-11 21:24] LABS: pH ABG 7.239 (7.350-7.450)
[2020-02-11 21:25] LABS: Device VENTILATOR; Modified Allen's Test Pass; Site Drawn RIGHT RADIAL; Total Hemoglobin 3.7 g/dL (12.0-18.0)
[2020-02-11 21:26] LABS: Arterial Blood Gas PEEP 5 cmH2O; Arterial Blood Gas Vent Mode PRESSURE CONTROL; Arterial Blood Gas Ventilator rate 12 /MIN; Peak Inspiratory Pressure 12 cmH2O
--- NOTE | 2020-02-11 21:36 | PM.IMPN ---
Subjective Date/time seen: 02/11/20 Patient unable to be seen by the Hospitalist service on this day as patient unavailable due to surgery in the afternoon/evening Objective Data Vital Signs Vital Signs: Vital Signs - 24 hr 02/11/20 00:00 02/11/20 04:00 02/11/20 04:54 Temperature 97.9 F Pulse Rate 88 81 90 Respiratory Rate 15 Blood Pressure 148/61 H Pulse Oximetry 97 02/11/20 08:00 02/11/20 12:00 02/11/20 20:01 Temperature Pulse Rate 100 80 109 H Respiratory Rate Blood Pressure Pulse Oximetry 100 Intake/Output Intake/Output: Intake & Output 02/08/20 02/09/20 02/10/20 02/11/20 23:59 23:59 23:59 23:59 Intake Total 558 470 0383 1947 Output Total 400 340 925 250 Balance 525 -884 569 7988 Meds/Results Medications: Active Medications Generic Name Dose Route Start Last Admin Trade Name Freq PRN Reason Stop Dose Admin Enoxaparin Sodium 30 mg 02/02/20 09:00 02/11/20 08:53 Lovenox SUB-Q 30 mg DAILY ESTHELA Administration Heparin Sodium (Porcine) 500 units 02/11/20 15:50 Heparin Sod Flush 100 Units/Ml IV PUSH ONCE ESTHELA Hydralazine HCl 10 mg 01/31/20 20:30 Apresoline Hcl Inj IV PUSH Q8H PRN Blood Pressure - High>160/80 Dextrose/Lactated Ringer's 1,000 mls @ 50 mls/hr 02/09/20 08:40 02/11/20 17:28 Dextrose 5%/Lactated Ringers IV CONT Infused .Q20H ESTHELA Infusion Piperacillin/Tazobactam/Dextrose 3.375 gm in 50 mls @ 100 mls/hr 02/11/20 14:00 Zosyn 3.375 Gm/D5w 50ml Pm IVPB Q8HR ESTHELA Fluconazole 200 mg in 100 mls @ 100 mls/hr 02/11/20 21:00 Diflucan 200 Mg/Nacl 100 Ml IVPB HS ESTHELA Lactated Ringer's 1,000 mls @ 30 mls/hr 02/11/20 14:20 02/11/20 13:35 Lr - Lactated Ringers Iv IV CONT 30 mls/hr .Q24H ESTHELA Administration Sodium Chloride 1,000 mls @ 150 mls/hr 02/11/20 20:21 Normal Saline Iv IV CONT .Q6H40M ESTHELA Lorazepam 0.5 mg 02/08/20 14:45 02/10/20 19:42 Ativan Inj IV PUSH 0.5 mg Q6H PRN Administration Anxiety Miconazole Nitrate 1 applic 02/04/20 11:55 02/11/20 08:34 Miconazole Nitrate 2% Cream TOPICAL 1 applic Q12HR ESTHELA Administration Morphine Sulfate 2 mg 02/08/20 14:45 02/10/20 22:47 Morphine Sulfate Inj IV PUSH 2 mg Q4H PRN Administration Pain Rated 7-10 Pantoprazole Sodium 40 mg 01/31/20 21:00 02/11/20 08:34 Protonix Iv IV PUSH 40 mg Q12HR ESTHELA Administration Promethazine HCl 12.5 mg 02/10/20 17:25 Phenergan Inj IV PUSH Q4H PRN Nausea And Vomiting Radiology Results: ITS Impressions Abdomen/Pelvis CT 01/30/20 21:17 IMPRESSION: 1. Mild thickening of the colon at the splenic flexure with pericolonic inflammation. There is adjacent wall thickening and surrounding inflammatory change of the Nik limb immediately distal to the gastrojejunal anastomosis. These findings are most likely infectious, inflammatory or malignant. No significant change dating back to 11/30/2019. Head CT 02/07/20 15:21 IMPRESSION: 1. No acute intracranial abnormality. 2: Chronic right parietal infarction. 3: Chronic age-related findings. Cervical Spine CT 02/07/20 15:25 IMPRESSION: 1. No acute abnormality of the cervical spine. Chest/Abdomen/Pelvis CT 02/08/20 10:02 IMPRESSION: 1. Large air/fluid collection below left hemidiaphragm, contiguous to spleen, stomach consistent with abscess. Would be amenable to percutaneous catheter placement but given the large amount of gas, could still freely communicate with gastric ulcerated perforation if not undergone surgery. 2. Scattered foci of free intraperitoneal, retroperitoneal gas. 3. Moderate left pleural effusion, adjacent multisegmental atelectasis. Catheter Placement CT 02/08/20 17:46 IMPRESSION: 1. Successful CT-guided left upper quadrant abscess drainage. 2. 20 mL fluid was sent for aerobic and anaerobic cultures. 3. The catheter will be managed by Dr. Machuca.
[2020-02-11] MEDS: SODIUM BICARBONATE 8.4% 50 MEQ/50 ML VIAL 100 MEQ IV PUSH (22:00)
[2020-02-11] MEDS: hetaSTARCH 6%/NACL 500 ML 250 ML IV CONT (22:05)
[2020-02-11] MEDS: FLUCONAZOLE 200 MG/NACL 100 ML 200 MG/100 ML BAG 100 MG IVPB (22:26)
[2020-02-11 22:31] LABS: Mean Corpuscular HGB Conc 29.6 g/dl (32-36); Mean Corpuscular Hemoglobin 28.6 pg (26-34); Mean Corpuscular Volume 96.8 fl (80-100); Mean Platelet Volume 10.2 fl (7.4-10.4); Platelet Count Result 215 k/mm3 (150-375); Red Blood Count 1.85 M/mm3 (4.6-6.20); Red Cell Distribution Width 14.5 % (11.5-14.5); White Blood Count 9.2 K/mm3 (4.5-10.0)
[2020-02-11 22:34] LABS: Hemoglobin 5.3 g/dL (14.0-18.0)
[2020-02-11 22:35] LABS: Hematocrit 17.9 % (42.0-52.0)
[2020-02-11 22:35] LABS: Blood Urea Nitrogen 8 mg/dL (9-20); Calcium 6.6 mg/dL (8.4-10.2); Carbon Dioxide 19 mmol/L (22-30); Chloride 117 mmol/L (98-107); Estimated CRCL calculation 26 ml/min; Estimated Glomerular Filt Rate 53; Glucose 133 mg/dL (75-110); Potassium 4.5 mmol/L (3.4-5.0); Sodium 144 mmol/L (137-145)
[2020-02-11 22:54] LABS: Band Neutrophils Percent 21 % (0-6); Hypochromasia 2+ (NORMAL); Lymphocytes Absolute Manual 0.27 K/mm3 (1.1-4.5); Monocytes Absolute Manual 0.09 K/mm3 (0.1-0.90); Monocytes Percent Manual 1 % (3-9); Neutrophils Absolute Manual 8.83 K/mm3 (1.3-6.7); Neutrophils Percent Manual 75 % (46-73); Platelet Estimate Adequate (Adequate); Total Cells Counted 100
[2020-02-11] MEDS: SODIUM CHLORIDE 0.9% IV 1,000 ML 150 ML IV CONT (23:02)
[2020-02-11] MEDS: SODIUM CHLORIDE 0.9% IV 250 ML 30 ML IV CONT (23:25)
[2020-02-11] MEDS: NOREPINEPHRINE 8 MG/D5W 250 ML 8 MG/250 ML BAG 9.4 MG IV CONT (23:35)
[2020-02-12] VITALS (26 sets, daily range): BP systolic 68–123; BP diastolic 37–81; PULSE 11–128; RESP 16–24; TEMP 34.6–36.3; O2SAT 82–100
--- NOTE | 2020-02-12 00:25 | PCRCNOTE ---
ABG DRAW DELAYED DUE TO BLOOD PRODUCT ISSUE. RN AT BEDSIDE AND IS AWARE.
--- NOTE | 2020-02-12 00:43 | P.CODEBLUE_ITS ---
Code Blue Note Code Blue Note Time Arrived at [facility] Blue: 02/11/2020 at 11:22 p.m. Initial Rhythm on Arrival: PEA Airway Management: Patient already intubated Chest Compressions: In process on arrival to bedside Result of Code Blue: Patient was already in the ICU Cardiac Rhythm Post Code: Sinus tachycardia Code Blue Summary: Patient was postoperative bowel resection. Patient was known to be anemic with a hemoglobin of 5.7. The patient was receiving volume resuscitation with IV fluids and volume expanders. The patient had been hypotensive with a systolic blood pressure is low as 47 just before the code. The patent was witnessed to drop into bradycardic rate and a pulse was checked. The patient was found to be in PEA. Patient received 1 round of CPR 1 round of epinephrine with return of perfusing circulation. Blood pressure after resuscitation was 100s over 50s. The patient's heart rate was in the 120s. An order was given to administer both units of PRBCs simultaneously. Dopamine was hung during the code. Will wean dopamine off and titrate Levophed upper given patient's tachycardia. The patient was also given 2 amps of sodium bicarb push immediately post resuscitation. I notified the collective bargaining specialist of the patient's change in condition. The repeat ABG, BMP and CBC have been ordered. Post resuscitation the patient was not tolerating pressure support ventilation. His ventilator settings were changed to a.c./CMV tidal volume of 350, rate 18, peep of 5, 40% FiO2 ABG approximately 1 hour after resuscitation demonstrated pH 7.09, pCO2 of 39.6, PO2 of 62, bicarb 11 however was a somewhat mixed specimen. The patient/labs was re-evaluated multiple times post code. He required addition of multiple pressors. Patient's case was discussed with the collective bargaining specialist. Care was turned over to the collective bargaining specialist at the end of my shift. Diagnosis: 1. Cardiac arrest with successful resuscitation 2. Septic shock with multiorgan system failure 3. Post intra-abdominal surgery Total of 65 minutes was spent in critical care activities.
[2020-02-12 00:52] LABS: Alveolar/Arterial O2 Gradient 177.7 mmHg; Base Excess ABG -16.7 mEq/l (+/-2.0); Carboxyhemoglobin 0.2 % THb (0-2.0); Fractional Inspired Oxygen 40 %; HCO3 ABG 11.7 mEq/l (22.0-26.0); Methemoglobin ABG 0.9 %THb (0-1.5); Oxygen Content ABG 7.8 %vol (16.0-22.0); Oxyhemoglobin 84.5 % THb (90.0-100.0); PCO2 ABG 39.6 mmHg (35.0-45.0); PO2 FiO2 Ratio Arterial Blood 1.55 %; Reduced Hemoglobin 14.4 %THb (0-5.0)
[2020-02-12 00:54] LABS: Arterial Blood Gas Vent Mode CMV; Arterial Blood Gas Ventilator rate 18 /MIN; Device VENTILATOR; Oxygen Saturation ABG 82.3 % (95.0-100.0); Site Drawn RIGHT BRACHIAL; Total Hemoglobin 6.5 g/dL (12.0-18.0)
[2020-02-12 00:55] LABS: Arterial Blood Gas PEEP 5 cmH2O; Arterial Blood Gas Tidal Volume 350 ml
[2020-02-12 01:16] LABS: Mean Corpuscular HGB Conc 29.6 g/dl (32-36); Mean Corpuscular Volume 94.7 fl (80-100); Mean Platelet Volume 10.2 fl (7.4-10.4); Platelet Count Result 207 k/mm3 (150-375); Red Blood Count 2.07 M/mm3 (4.6-6.20); Red Cell Distribution Width 15.8 % (11.5-14.5); White Blood Count 9.9 K/mm3 (4.5-10.0)
[2020-02-12 01:20] LABS: Hematocrit 19.6 % (42.0-52.0); Hemoglobin 5.8 g/dL (14.0-18.0)
[2020-02-12 01:29] LABS: Blood Urea Nitrogen 7 mg/dL (9-20); Calcium 6.9 mg/dL (8.4-10.2); Carbon Dioxide 15 mmol/L (22-30); Chloride 118 mmol/L (98-107); Estimated CRCL calculation 22 ml/min; Estimated Glomerular Filt Rate 45; Glucose 88 mg/dL (75-110); Magnesium 1.9 mg/dL (1.6-2.3); Phosphorus 7.7 mg/dL (2.5-4.5); Potassium 4.4 mmol/L (3.4-5.0); Sodium 146 mmol/L (137-145)
[2020-02-12] MEDS: SODIUM BICARBONATE 8.4% 150 MEQ in DEXTROSE 5% 1,000 ML 950 ML IV CONT ×2 (02:15→09:29)
[2020-02-12] MEDS: VASOPRESSIN INJ 100 UNITS in DEXTROSE 5% 95 ML IV CONT (02:21)
[2020-02-12] MEDS: SODIUM CHLORIDE 0.9% IV 250 ML 30 ML IV CONT (03:20)
[2020-02-12 05:08] LABS: Base Excess ABG -20.4 mEq/l (+/-2.0); Carboxyhemoglobin 0.1 % THb (0-2.0); Fractional Inspired Oxygen 40 %; Methemoglobin ABG 0.4 %THb (0-1.5); Oxygen Content ABG 13.6 %vol (16.0-22.0); Oxyhemoglobin 94.5 % THb (90.0-100.0); PCO2 ABG 27.1 mmHg (35.0-45.0); PO2 FiO2 Ratio Arterial Blood 2.47 %; Total Hemoglobin 10.1 g/dL (12.0-18.0)
[2020-02-12 05:10] LABS: Device VENTILATOR; Site Drawn RIGHT FEMORAL; pH ABG 7.087 (7.350-7.450)
[2020-02-12 05:11] LABS: Arterial Blood Gas PEEP 5 cmH2O; Arterial Blood Gas Tidal Volume 350 ml; Arterial Blood Gas Vent Mode CMV; Arterial Blood Gas Ventilator rate 18 /MIN
[2020-02-12 05:20] LABS: Hematocrit 30.1 % (42.0-52.0); Hemoglobin 8.6 g/dL (14.0-18.0); Mean Corpuscular HGB Conc 28.6 g/dl (32-36); Mean Corpuscular Hemoglobin 26.4 pg (26-34); Mean Corpuscular Volume 92.3 fl (80-100); Mean Platelet Volume 10.8 fl (7.4-10.4); Platelet Count Result 186 k/mm3 (150-375); Red Blood Count 3.26 M/mm3 (4.6-6.20); Red Cell Distribution Width 17.2 % (11.5-14.5); White Blood Count 9.7 K/mm3 (4.5-10.0)
[2020-02-12 05:27] LABS: Blood Urea Nitrogen 7 mg/dL (9-20); Calcium 6.4 mg/dL (8.4-10.2); Carbon Dioxide 11 mmol/L (22-30); Chloride 115 mmol/L (98-107); Estimated CRCL calculation 20 ml/min; Estimated Glomerular Filt Rate 39; Glucose 135 mg/dL (75-110); Potassium 5.5 mmol/L (3.4-5.0); Sodium 144 mmol/L (137-145)
[2020-02-12 05:59] LABS: Lactic Acid Reflex 20.5 mmol/L (0.7-2.1)
[2020-02-12] MEDS: DOPamine 400 MG/D5W 250 ML 400 MG/250 ML BAG 8.8 MG IV CONT (06:11)
[2020-02-12] MEDS: SODIUM BICARBONATE 8.4% 50 MEQ/50 ML VIAL 100 MEQ IV PUSH ×2 (06:12→08:07)
--- NOTE | 2020-02-12 07:33 | PC.NURSE ---
called last night around 2315. Consent for blood transfusion received. Also gave her update of low blood pressures not responding to medications. Spoke with again this morning and gave her update of low blood pressures all night and not responding to medications, now on 4 vasopressors. Also told that he coded last night and discussed code status. She is not sure what she wants at this time.
[2020-02-12] MEDS: CALCIUM CHLOR 1,000MG/100ML NS 1,000 MG/100 ML BAG 100 MG IVPB (07:59)
--- NOTE | 2020-02-12 08:20 | PCPTNOTE ---
Isiah has moved to more intensive level of care - from 3 Medical to ICU. In addition, he has had abdominal surgery. Will d/c from PT at this time. Will await new PT orders when appropriate.
[2020-02-12 08:22] LABS: Reflex Lactic Acid Yes or No Add Lactic
--- NOTE | 2020-02-12 08:55 | PM.IMPN ---
Progress Note: A&P Assessment and Plan (1) Acute respiratory failure: Qualifiers: Respiratory failure complication: hypoxia Qualified Code(s): J96.01 - Acute respiratory failure with hypoxia Code(s): J96.00 - Acute respiratory failure, unspecified whether with hypoxia or hypercapnia Status: Acute Assessment and Plan: Secondary to septic shock, cardiac arrest and anesthesia. On ventilator with management per supervisor speech. On bronchodilators. After my visit, family did change patient code status to DNR. Condition guarded. Notified by nursing staff patient at 11:33 a.m.. Family had made him comfort measures shortly before. (2) Septic shock: Code(s): A41.9 - Sepsis, unspecified organism; R65.21 - Severe sepsis with septic shock Status: Acute Assessment and Plan: Secondary to abdominal abscess, peritonitis and perforated jejunal ulcer. On IV Zosyn and fluconazole. Patient requiring heavy pressor support including Levophed, dopamine, phenylephrine and vasopressin with blood pressure still low on review on 02/12/2020. IV bicarbonate and IV calcium being given. Per supervisor speech, stress dose steroids initiated. Epinephrine infusion initiated. IV fluids continued. Telemetry reviewed on 02/12/2020 with tachycardia noted (3) Abscess: Code(s): L02.91 - Cutaneous abscess, unspecified Status: Acute Assessment and Plan: CT Chest/Abd/Pelvis on 02/08/2020 with large air/fluid collection below left hemidiaphragm, contiguous to spleen, stomach consistent with abscess. Would be amenable to percutaneous catheter placement but given the large amount of gas, could still freely communicate with gastric ulcerated perforation if not undergone surgery. Scattered foci of free intraperitoneal, retroperitoneal gas. Moderate left pleural effusion, adjacent multisegmental atelectasis. percutaneous drain was placed on 02/08/2020. Appreciate help from General surgery with Gastrografin secondarily completed on 02/10/2020 still showing large perforation. Now S/P complicated surgery on 02/11/2020. Secondary issues as noted above. Yeast present in abscess culture. On IV fluconazole as noted. (4) Cardiac arrest: Code(s): I46.9 - Cardiac arrest, cause unspecified Status: Acute Assessment and Plan: Found to be in PEA. Was successfully resuscitated but still poor condition as noted above. (5) Anemia: Qualifiers: Anemia type: other cause Other causes of anemia: acute posthemorrhagic Qualified Code(s): D62 - Acute posthemorrhagic anemia Code(s): D64.9 - Anemia, unspecified Status: Acute Assessment and Plan: Hemoglobin critical at 5.2 this morning. Transfusion of PRBC in fresh frozen plasma ordered. Follow H and H. (6) Acute on chronic renal failure: Qualifiers: Acute renal failure type: unspecified Chronic kidney disease stage: stage 3 (moderate) Qualified Code(s): N17.9 - Acute kidney failure, unspecified; N18.3 - Chronic kidney disease, stage 3 (moderate) Code(s): N17.9 - Acute kidney failure, unspecified; N18.9 - Chronic kidney disease, unspecified Status: Acute Assessment and Plan: Creatinine up to 1.60 today. Result of all acute issues. 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 IV Protonix. (8) Phimosis: Code(s): N47.1 - Phimosis Status: Acute Assessment and Plan: Noted and corrected during surgery. (9) Moderate sized pleural effusion: Code(s): J90 - Pleural effusion, not elsewhere classified Status: Acute Assessment and Plan: Pleural effusion on the left small on chest x-ray 02/11/2020 after central line placement. (10) Dementia: Qualifiers: Dementia behavioral disturbance: without
--- NOTE | 2020-02-12 09:02 | WPDCNINT ---
Assessment and Plan Assessment and plan (1) Acute respiratory failure: Code(s): J96.00 - Acute respiratory failure, unspecified whether with hypoxia or hypercapnia Status: Acute Assessment and Plan: Acute Respiratory failure secondary to cardiac arrest septic shock, , general anesthesia, Continue full mechanical ventilation support to prevent hypoxemia/hypercarbia and end organ damage. ABG and PCXR reviewed and will repeat in am. Low tidal volume ventilation strategy to prevent volutrauma Bronchodilators (2) Septic shock: Code(s): A41.9 - Sepsis, unspecified organism; R65.21 - Severe sepsis with septic shock Status: Acute Assessment and Plan: secondary to abdominal abscess, perforated jejunal ulcer and peritonitis CT Chest/Abd/Pelvis showed large air/fluid collection below left hemidiaphragm, contiguous to spleen, stomach consistent with abscess. Would be amenable to percutaneous catheter placement but given the large amount of gas, could still freely communicate with gastric ulcerated perforation if not undergone surgery. Scattered foci of free intraperitoneal, retroperitoneal gas. Moderate left pleural effusion, adjacent multisegmental atelectasis. Now S/P repair perforation gastrojejunostomy, omentoplasty,drainage left upper quadrant abscess, repair enterotomy for perforated jejunal ulcer, LUQ abscess on 02/10 on IV fluconazole and Zosyn when I saw the patient patient was on 4 vasopressors including Levophed dopamine phenylephrine and vasopressin blood pressure was still in 60s to 70s systolic. 100 meq sodium bicarbonate IV push was given and IV calcium was given with improvement in blood pressure will start stress dose steroids I would start epinephrine infusion continue IV fluids with bicarbonate check echocardiogram check NICOM (3) Abscess: Code(s): L02.91 - Cutaneous abscess, unspecified Status: Acute Assessment and Plan: see above (4) Acute on chronic renal failure: Qualifiers: Acute renal failure type: unspecified Chronic kidney disease stage: stage 3 (moderate) Qualified Code(s): N17.9 - Acute kidney failure, unspecified; N18.3 - Chronic kidney disease, stage 3 (moderate) Code(s): N17.9 - Acute kidney failure, unspecified; N18.9 - Chronic kidney disease, unspecified Status: Acute Assessment and Plan: Cr 1.30 this morning, improved Restarted light IV fluids since he is NPO Monitor renal function. Avoid nephrotoxic agents, renally dose medications. 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 (6) Moderate sized pleural effusion: Code(s): J90 - Pleural effusion, not elsewhere classified Status: Acute Assessment and Plan: no intervention at this time (7) Dementia: Qualifiers: Dementia type: unspecified type Dementia behavioral disturbance: without behavioral disturbance Qualified Code(s): F03.90 - Unspecified dementia without behavioral disturbance Code(s): F03.90 - Unspecified dementia without behavioral disturbance Status: Chronic Assessment and Plan: Continue Seroquel Intermittent confusion, most likely from continued hospitalization. Intermittently A&Ox4, then at times A&Ox2. Continue monitoring. (8) Gastroesophageal reflux disease: Code(s): K21.9 - Gastro-esophageal reflux disease without esophagitis Status: Chronic Assessment and Plan: Continue PPI therapy. (9) Urinary retention: Code(s): R33.9 - Rete
[2020-02-12 09:24] LABS: Mean Corpuscular HGB Conc 30.2 g/dl (32-36); Mean Corpuscular Hemoglobin 27.2 pg (26-34); Mean Corpuscular Volume 90.1 fl (80-100); Platelet Count Result 133 k/mm3 (150-375); Red Blood Count 1.91 M/mm3 (4.6-6.20)
[2020-02-12] MEDS: HYDROCORTISONE SODIUM SUCCINATE 100 MG/2 ML VIAL IV PUSH (09:30)
[2020-02-12] MEDS: PANTOPRAZOLE SODIUM IV 40 MG VIAL IV PUSH (09:30)
[2020-02-12 09:31] LABS: Hematocrit 17.2 % (42.0-52.0); Hemoglobin 5.2 g/dL (14.0-18.0)
[2020-02-12 09:38] LABS: Blood Urea Nitrogen 7 mg/dL (9-20); Calcium 7.4 mg/dL (8.4-10.2); Carbon Dioxide 13 mmol/L (22-30); Chloride 107 mmol/L (98-107); Estimated CRCL calculation 21 ml/min; Estimated Glomerular Filt Rate 41; Glucose 248 mg/dL (75-110); Potassium 5.1 mmol/L (3.4-5.0); Sodium 144 mmol/L (137-145)
[2020-02-12 09:59] LABS: Lactic Acid > 24.0 mmol/L (0.7-2.1)
--- NOTE | 2020-02-12 10:00 | PM.EVENT ---
Event Note Event Note Event Note: I called and spoke to patient's Ana and daughter Beth on phone. I updated the patient's status and critical nature of his illness. I explained them that he is in multiorgan failure including septic shock, blood loss anemia, respiratory failure, kidney injury, abnormal mental status. His chances of survival a pretty low. I offered them a chance to visit him at this time. They told me that they will discuss with other family members and see if any family member wants to come to the hospital to see him. I answered all their questions. Confirmed that patient is DNR as per his wishes.
--- NOTE | 2020-02-12 10:44 | PCDIET ---
ICU Rounding Note: Patient is NPO on vent s/p transfer to ICU. Family to make decisions today re: plan of care. Last recorded weight is 47.1kg which is increased from last review. +I/O. Bowel Motility: No bowel sounds per nursing. NG placed for suction. Labs Reviewed: Glu (135), BUN (7), Cr (1.7), K (5.5), PO4 (7.7), Ca (6.4) Meds Noted: Dopamine, Epinephrine, Protonix, Vasopressin, Solu Cortef, Novolog, Zosyn, Levophed, Protonix, [id number] at 150mL/hr Additional Notes: Sacrum/scrotum macerated. Abdomen with drains. IV fluids providing 612kcal daily. If aggressive support is continued, suggest very slow progression of PN due to risk of refeeding syndrome. Will follow closely and provide recommendations, as needed. Recommend rechecking calcium and obtaining serum albumin for correction, replacing if indicated. Following daily in ICU rounds. Assessing/reassessing every 3 days.
--- NOTE | 2020-02-12 10:45 | PM.EVENT ---
Event Note Event Note Event Note: Family Meeting I met with patient's sister Priscilla at bedside and went over patient's condition and current treatment plan and expected prognosis prognosis and different potential outcomes. she spoke to her family members by phone. And later she requested me to call her mother who was at home. I called and spoke to patient's Ana again and his daughter Beth. They told me the patient would not want aggressive intervention at this point. they requested that patient be palliatively extubated and kept comfortable and allow the natures to take its course. I explained them the palliative extubation and comfort care process and they were in agreement to proceed. In summary, the family has decided, in accordance with pt's wishes, to discontinue all medical therapy and institute comfort measures only. I will use opioids, anxiolytics and other agents on as needed basis to promote comfort and discontinue all medical therapy, lab testing and invasive monitoring. I requested nurse to notify primary physician. Total Additional time spent in family meetings, phone calls and coordinating care 30 minutes minutes
[2020-02-12] MEDS: NOREPINEPHRINE 8 MG/D5W 250 ML 8 MG/250 ML BAG 56.3 MG IV CONT (11:05)
--- NOTE | 2020-02-12 16:19 | PM.DDS ---
Discharge Sum: Prov Provider Primary care physician: Marcial Mccracken DO Admitting provider: Bennie Galeano MD Attending physician on admission: Bennie Galeano Consults: 01/31/20 Consult to Physician Routine Comment: Consulting Provider: Bacilio Machuca inbound call center representative/MD group to consult: Dr. Machuca Reason for consultation: Free intraperitoneal air, ulcer disease Has provider been notified: Yes 01/31/20 00:09 Consult to Physician Routine Comment: Consulting Provider: Adalberto Abel inbound call center representative/MD group to consult: keven Reason for consultation: gastritis/peptic ulcers Has provider been notified: Yes 02/11/20 07:58 Consult to Physician Routine Comment: Consulting Provider: Jimi Ernst inbound call center representative/MD group to consult: Infectious Disease Reason for consultation: Yeast growth on intrabdominal abscess cx; perferated ulcer;s/p whipple 2016 Has provider been notified: Yes 02/11/20 20:21 Consult to Physician Routine Comment: Consulting Provider: Liudmila Buchanan inbound call center representative/MD group to consult: Dr. Buchanan Reason for consultation: Intensive care/Critical Care management Has provider been notified: Yes Consult to Physician Routine Comment: Consulting Provider: Timothy Lee inbound call center representative/MD group to consult: Dr. Lee Reason for consultation: Phimosis, need josé catheter placed prior to surgery Has provider been notified: Yes Pronouncing clinician: Dalia Joseph Discharge Sum: Diag PCOD Septic Shock Contributing Factors (1) Acute respiratory failure: (2) Abscess: (3) Cardiac arrest: (4) Anemia: (5) Acute on chronic renal failure: (6) Jejunal ulcer: (7) Phimosis: (8) Moderate sized pleural effusion: (9) Dementia: (10) Gastroesophageal reflux disease: (11) Essential hypertension: (12) Urinary retention: (13) ASB (asymptomatic bacteriuria): Discharge Sum: Summary Date and Time Date of admission: 02/01/20 12:27 Date of : 02/12/20 Time of : 11:33 Summary Details: Procedures: 1. EGD done by Dr. Abel on 01/31/2020. 2. CT-guided placement of abscess catheter by Interventional Radiology on 02/08/2020. 3. Placement right subclavian central venous line under fluoroscopy, repair perforation gastrojejunostomy, omentoplasty, drainage left upper quadrant abscess and repair enterotomy by Dr. Machuca on 02/11/2020. 4. Dorsal foreskin slit and placement of urethral catheter by Dr. Lee on 02/11/2020. Chief Complaint: Diffuse abdominal pain. 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 Patient did have endoscopic evaluation in November 2019 demonstrating multiple crater ulcers in the jejunum. He has been on Carafate and PPI therapy since that time. No nausea or vomiting. No diarrhea. No rectal bleeding. No fever cough, shortness of breath or chest pain. In the emergency room CT abdomen/pelvis showed mild thickening of the colon at the splenic flexure with pericolonic inflammation with adjacent wall thickening and surrounding inflammatory change of the Nik limb immediately distal to the gastrojejunal anastomosis. With his findings, gastroenterology was consulted and patient was admitted for further evaluation and treatment. Course in Hospital: Patient was initially admitted to the medical floor with GI consultation. Gastroenterology did repeat EGD on 01/31/2020 revealing postanastomotic ulcers. Patient was continued on PPI as well as Carafate at that time. Imaging also done on 01/31/2020 with suggestion of intraperitoneal free air with general surgery consulted. Patient was initially treated conservatively and monitored. He was maintained NPO with NG tube in place. He was
== END 2020-02-12 11:33 | disposition expired | DRG 329 ==
LOC: ANHED 23:17 → ANH3MED 01-31 00:24 → ANHICU 02-11 20:41 → ANH3MED 02-13 12:58 → ANHICU 02-13 12:58
PROVIDERS: Internal Medicine; Internal Medicine Gastroenterology; Physician Assistant; Surgery; Admitting Provider Family Medicine; Emergency Provider Emergency Medicine; PCP Internal Medicine; Visit Provider Hospitalist
PROC: 0DJ08ZZ Inspection of Upper Intestinal Tract, Via Natural or Artificial Opening Endoscopic (ICD-10-PCS; CPT 43235; principal; 2020-01-31 10:00)
PROC: 0DNU0ZZ Release Omentum, Open Approach (ICD-10-PCS; principal; 2020-02-11 14:30)
PROC: 0DNU0ZZ Release Omentum, Open Approach (ICD-10-PCS; 2020-02-11 14:30)
DX: K28.5 Chronic or unspecified gastrojejunal ulcer with perforation (principal); K65.1 Peritoneal abscess; J95.821 Acute postprocedural respiratory failure; T81.12XA Postprocedural septic shock, initial encounter; N17.9 Acute kidney failure, unspecified; R64 Cachexia; Z68.1 Body mass index [BMI] 19.9 or less, adult; K56.7 Ileus, unspecified; J90 Pleural effusion, not elsewhere classified; K63.2 Fistula of intestine; T81.44XA Sepsis following a procedure, initial encounter; N18.3 Chronic kidney disease, stage 3 (moderate); F03.90 Unspecified dementia, unspecified severity, without behavioral disturbance, psychotic disturbance, mood disturbance, and anxiety; I10 Essential (primary) hypertension; Z90.49 Acquired absence of other specified parts of digestive tract; Z90.3 Acquired absence of stomach [part of]; F17.210 Nicotine dependence, cigarettes, uncomplicated; F10.21 Alcohol dependence, in remission; R33.9 Retention of urine, unspecified; R82.71 Bacteriuria; Z90.411 Acquired partial absence of pancreas; N47.1 Phimosis; R00.0 Tachycardia, unspecified; T41.205A Adverse effect of unspecified general anesthetics, initial encounter; Z66 Do not resuscitate; I46.9 Cardiac arrest, cause unspecified; D50.0 Iron deficiency anemia secondary to blood loss (chronic); K66.0 Peritoneal adhesions (postprocedural) (postinfection)
CPT/HCPCS: 36415; 36430; 36569; 36600; 70450; 71045; 71250; 72125; 74018; 74019; 74176; 74240; 75989; 77001; 80048; 80053; 81001; 82375; 82805; 83050; 83605; 83690; 83735; 84100; 85014; 85018; 85025; 85027; 85610; 86850; 86900; 86901; 86923; 87070; 87075; 87077; 87086; 87088; 87106; 87186; 87205; 88305; 88342; 92950; 93005; 93306; 94002; 96361; 96365; 96366; 96374; 96375; 96376; 97110; 97116; 97161; 97165; 97530; 99285; A9270; C1729; C1751; C1769; C9113; G0378; J0131; J0171; J0330; J0360; J1100; J1170; J1265; J1450; J1650; J1720; J1940; J2060; J2270; J2370; J2405; J2543; J2704; J3010; J3475; J3480; J7030; J7040; J7050; J7060; J7070; J7120; J7121; P9016